=== PATIENT | male | born 1940 | race Caucasian/White ===

== ENCOUNTER → 2016-12-27 | Outpatient (CLI) | payer OTHER | LOC: FIMAGING 12:24 | PROVIDERS: ATTEND Orthopaedic Surgery Orthopaedic Surgery of the Spine | DX: Z01.818 Encounter for other preprocedural examination (principal); M47.892 Other spondylosis, cervical region; M50.222 Other cervical disc displacement at C5-C6 level ==

== ENCOUNTER 2017-01-01 08:32 | Observation (INO) | payer OTHER ==
--- NOTE | 2016-12-28 14:36 | GHP ---
[f rep st] PREOP HISTORY AND PHYSICAL DATE OF ADMISSION: 01/01/2017 HISTORY: The patient is a pleasant 76-year-old right-hand dominant gentleman well known to my practi ce. I had not seen him for 5 years. In the past, I had done 2 lumbar surgeries on him which were re vision laminectomies. Patient states that he has had about a 2-year history of ongoing cervical spin e pain as well as left shoulder pain, weakness, and atrophy. He mentions he went to a chiropractor, and a manipulation worsened him to the point that he was unable to lift his left upper extremity for about a week. He states he is seeing a neurosurgeon who recommended emergent surgery. Patient denie s any loss of bowel or bladder control and no loss of balance. On a 1-10 scale, his pain is typicall y a 4. 100% of his symptoms are referable to the left upper extremity. SOCIAL HISTORY: Negative for tobacco. Negative for alcohol. Patient is retired. FAMILY HISTORY: Significant for cancer in his father. PAST MEDICAL HISTORY: Patient has had Logan palsy, prostate cancer, and low back problems with 3 prio r lumbar surgeries. PAST SURGICAL HISTORY: Herniorrhaphy, rotator cuff repair, prostatectomy, knee arthroscopy, L4-S1 po sterior fusion with instrumentation, revision L2-4 laminectomy, and revision L1-L4 laminectomy. ALLERGIES: Shellfish. MEDICATIONS: Tramadol, prednisone, and Keflex. REVIEW OF SYSTEMS: Negative for any pertinent positives. PHYSICAL EXAMINATION: GENERAL: Height is 6 feet 2 inches tall, and patient weighs 210 pounds. Kizzy ent is alert and oriented x3. CARDIAC: Regular rate and rhythm without detectable murmur, rub, or g allop. LUNGS: Clear to auscultation. He has no wheezing or rhonchi. NEUROLOGIC: Patient has sign ificant decreased range of motion of the cervical spine and left rotation. Strength of bilateral upp er extremities is 5/5 throughout with the exception of his left deltoid and biceps are 3+/5. He has atrophy of the left deltoid, left biceps, triceps, and supraspinatus. Light touch is diminished in t he left deltoid, radial forearm, and small finger. Biceps, brachioradialis, triceps reflexes are abs ent. Gait is normal. He is tender to palpation in the left trapezius. RADIOGRAPHIC STUDIES: MRI of the cervical spine shows cervical kyphosis. He has severe degenerative disk disease C4-C7, retrolisthesis C5-6. At C5-6, he has profound spinal stenosis. C3-4 shows spin al stenosis which is moderate to severe. At C4-5, he has severe left foraminal stenosis. Furthermor e, there is question of possible myelomalacia and possible ossification of the posterior longitudinal ligament at C5-6. IMPRESSION: 1. Profound left upper extremity weakness and atrophy due to spinal stenosis in the cervical spine. 2. Cervical kyphosis and severe degenerative disk disease C4-C7. 3. Retrolisthesis C5-6. 4. Profound stenosis C5-6, severe C3-4, severe left foraminal stenosis C4-5. PLAN: I explained to the patient the MRI findings. We talked about his severe weakness and atrophy in the left upper extremity. He does require surgery on a more urgent basis. He mentions that his s [place] cord stimulator from his lower back was taken out, and that is why he is able to have an MRI. He understands that the potential risks of surgery include, but are not limited to, lack of improveme nt in symptomatology, specifically strength and atrophy, partial or complete paralysis, worsening of symptomatology, junctional breakdown, nonunion, breakage or pullout of internal fixation, loss of bow el or bladder control, Colton syndrome, dysphagia, aphonia, and injury to the esophagus, trachea, spi nal cord, carotid sheath. He also understands potential medical problems including, but not limited to, DVT, PE, pneumonia, stroke, heart attack, hemorrhage, hematoma, blindness, and . Patient wi ll be n.p.o. after midnight prior to surgery, and I expect a 1 to 2 night hospital stay. Copy requested to: [facility] /[id number]/MODL
[2017-01-01] MEDS ORDERED: LIDOCAINE 1% 2 ML INJ ID PRN (09:07)
[2017-01-01] MEDS ORDERED: LR 1,000 ML IV ONE (09:07)
[2017-01-01] MEDS ORDERED: LIDOCAINE 1% 2 ML INJ ONE (09:18)
[2017-01-01 09:37] LABS: % IMMATURE GRANULYOCYTES 0.3 % (0.0-1.1); ABSOLUTE IMMATURE GRANULOCYTES 0.02 10^3/uL (0.00-0.10); ADD DIFF? NO; ADD MORPH? NO; ADD SCAN? NO; ATYPICAL LYMPHOCYTE FLAG 0 (0-99); FRAGMENT RBC FLAG 0 (0-99); HEMOGLOBIN 16.1 g/dL (13.7-17.5); LEFT SHIFT FLG 0 (0-99); LIPEMIA HEMOLYSIS FLAG 90 (0-99); MEAN CELL HEMOGLOBIN 31.3 pg (27.9-34.1); MEAN CELL HEMOGLOBIN CONCENTR. 34.3 g/dL (32.4-36.7); MEAN CELL VOLUME 91.3 fL (81.5-99.8); MEAN PLATELET VOLUME 9.4 fL (8.7-11.7); PLATELET CLUMPS FLAG 0 (0-99); PLATELET COUNT 249 10^3/uL (150-400); RED BLOOD CELL COUNT 5.15 10^6/uL (4.40-6.38); RED CELL DISTRIBUTION WIDTH 13.2 % (11.5-15.2)
--- NOTE | 2017-01-01 09:50 | PDANEPAE ---
ANE History of Present Illness Cervical stenosis with left side pain and atrophy ANE Past Medical History - Cardiovascular History Hx Hypertension: Yes Hx Arrhythmias: No Hx Chest Pain: No Hx Coronary Artery / Peripheral Vascular Disease: No Hx CHF / Valvular Disease: No Hx Palpitations: No - Pulmonary History Hx COPD: No Hx Asthma/Reactive Airway Disease: No Hx Recent Upper Respiratory Infection: No Hx Oxygen in Use at Home: No Hx Sleep Apnea: No Sleep Apnea Screening Result - Last Documented: Positive - Neurologic History Hx Cerebrovascular Accident: No Hx Seizures: No Hx Dementia: No - Endocrine History Hx Diabetes: No - Renal History Hx Renal Disorders: Yes Renal History Comment: PROSTATECTOMY FOR CA. SOME LEAKAGE - Liver History Hx Hepatic Disorders: No - Neurological & Psychiatric Hx Hx Neurological and Psychiatric Disorders: No - Cancer History Hx Cancer: No - Congenital Disorder History Hx Congenital Disorders: No - GI History Hx Gastrointestinal Disorders: No - Other Health History Other Health History: DDD. DENTAL EXT 12/26/2016 - Chronic Pain History Chronic Pain: Yes (CERVICAL NECK REGION) - Surgical History Prior Surgeries: REMVL SPINAL STIMULATOR 03/2016. LAMINECTOMY X5 10/2011. PROSTATECTOMY FOR CA. SPINAL CORD STIMULATOR ANE Review of Systems Review of Systems: - Exercise capacity METS (RN): 4 METS ANE Patient History - Allergies Allergies/Adverse Reactions: No Known Allergies Allergy (Verified 03/05/16 07:02) - Home Medications Home medications: home medication list seen and reviewed Home Medications: amLODIPine BESYLATE [Norvasc 5 mg (*)] 5 mg PO DAILY 01/14/12 [Last Taken 06:00] Aspirin [Aspirin 81mg (*)] 81 mg PO DAILY 02/21/16 [Last Taken 12/25/16] Multivitamins [Multivitamin (*)] 1 each PO DAILY 02/21/16 [Last Taken 12/25/16] [place]-3 Fatty Acids [Fish Oil 1000 mg (*)] 1,000 mg PO DAILY 02/21/16 [Last Taken 12/25/16] celeCOXIB [Celebrex (*)] 200 mg PO BID 02/21/16 [Last Taken 12/25/16] traMADol [Ultram 50 mg (*)] 50 mg PO Q6HRS PRN 02/21/16 [Last Taken 12/31/16 17: 00] - NPO status NPO Since - Liquids (Date): 01/01/17 NPO Since - Liquids (Time): 06:00 NPO Since - Solids (Date): 12/31/16 NPO Since - Solids (Time): 22:00 - Smoking Hx Smoking Status: Never smoked ANE Labs/Vital Signs - Labs Result Diagrams: 01/01/17 09:25 - Vital Signs Blood Pressure: 154/92 Heart Rate: 65 Respiratory Rate: 16 O2 Sat (%): 97 Height: 193.04 cm Weight: 92.986 kg ANE Physical Exam - Airway Neck exam: FROM Mouth exam: normal dental/mouth exam - Pulmonary Pulmonary: no respiratory distress - Cardiovascular Cardiovascular: regular rate and rhythym - ASA Status ASA Status: II ANE Anesthesia Plan Anesthesia Plan: general endotracheal anesthesia
--- NOTE | 2017-01-01 09:58 | PDHPUP ---
History & Physical Update H&P update statement: This history and physical update is based on an assessment of the patient which was completed after admission or registration (within 24 hours), but prior to the surgery/procedure. H&P update: H&P reviewed & patient examined, no change in patient's condition since H&P completed
[2017-01-01] MEDS ORDERED: THROMBIN (BOVINE) 20,000 UNIT VIAL TP ONE (10:38)
[2017-01-01] MEDS ORDERED: BACITRACIN 50,000 UNITS/10 ML SYR IRR ONE (10:39)
[2017-01-01] MEDS ORDERED: PROPOFOL 200 MG/20 ML VIAL ONE ×2 (10:40→12:04)
[2017-01-01] MEDS ORDERED: REMIFENTANIL HCL 1 MG VIAL ONE ×2 (10:40→14:10)
[2017-01-01] MEDS ORDERED: PROPOFOL/EMULSION 500 MG/50 ML BOTTLE IV ONE ×3 (10:40→14:11)
[2017-01-01] MEDS ORDERED: fentaNYL 100 MCG/2 ML INJ ONE (10:40)
[2017-01-01] MEDS ORDERED: ROCURONIUM 50 MG/5 ML VIAL ONE (10:41)
[2017-01-01] MEDS ORDERED: LIDOCAINE 2% 5 ML SDV ONE (10:41)
[2017-01-01] MEDS: ceFAZolin 2 GM/DEXTROSE 100 ML IV ONE (11:01)
[2017-01-01] MEDS ORDERED: DEXAMETHASONE 4 MG/ML VIAL ONE (11:05)
[2017-01-01] MEDS ORDERED: ONDANSETRON 4 MG/2 ML VIAL ONE (11:05)
[2017-01-01] MEDS ORDERED: epHEDrine SULFATE 10 MG/ML SYR ONE ×2 (12:27)
[2017-01-01] MEDS ORDERED: PHENYLEPHRINE HCL 100 MCG/ML SYR ONE (12:30)
[2017-01-01] MEDS ORDERED: SUGAMMADEX SODIUM 200 MG/2 ML VIAL IVP ONE (13:04)
[2017-01-01] MEDS ORDERED: fentaNYL 100 MCG/2 ML INJ IVP PRN (15:02)
[2017-01-01] MEDS ORDERED: ONDANSETRON 4 MG/2 ML VIAL IVP PRN ×2 (15:02→15:42)
[2017-01-01] MEDS ORDERED: NALOXONE HCL 0.4 MG/ML INJ IVP PRN (15:02)
--- NOTE | 2017-01-01 15:31 | POSTANESTH ---
Post Anesthetic Evaluation Cardiovascular Status: Normal, Stable, Similar to Pre-Op Cond Respiratory Status: Normal, Stable, Similar to Pre-op Cond. Level of Consciousness/Mental Status: Can Participate in Eval Pain Control: Adequate, Prn Tx Ordered Nausea/Vomiting Control: Adequate, Prn Tx Ordered Complications Possibly Related to Anesthesia: None Noted
[2017-01-01] MEDS ORDERED: PROMETHAZINE HCL 25 MG/ML INJ IVP PRN (15:42)
[2017-01-01] MEDS ORDERED: HYDROmorphONE/DILAUDID 1 MG/ML INJ IVP PRN (15:42)
[2017-01-01] MEDS ORDERED: ONDANSETRON DISINTEGRATING 4 MG TAB PO PRN (15:42)
[2017-01-01] MEDS ORDERED: LACTULOSE 20 GM/30 ML UDCUP PO PRN (15:42)
[2017-01-01] MEDS ORDERED: POLYETHYLENE GLYCOL 3350 17 GM PKT PO PRN (15:42)
[2017-01-01] MEDS ORDERED: diphenhydrAMINE 25 MG CAP PO PRN (15:42)
[2017-01-01] MEDS ORDERED: ZOLPIDEM TARTRATE 5 MG TAB PO PRN (15:42)
[2017-01-01] MEDS ORDERED: BISACODYL 10 MG SUPP PR PRN (15:42)
[2017-01-01] MEDS ORDERED: MAGNESIUM HYDROXIDE 30 ML UDCUP PO PRN (15:42)
[2017-01-01] MEDS ORDERED: NS W/ 20 KCl/L 1,000 ML IV SCH (15:45)
[2017-01-01] MEDS ORDERED: HYDROCODONE/APAP 5/325 TAB PO PRN (15:50)
[2017-01-01] MEDS ORDERED: DIAZEPAM 5 MG TAB PO PRN (15:50)
[2017-01-01] MEDS ORDERED: DIAZEPAM 10 MG/2 ML SYR IVP PRN (15:51)
--- NOTE | 2017-01-01 15:56 | POSTOPPROG ---
Post Op Note Date of Operation: 01/01/17 Surgeon: Lisa Mandujano Radiotelegraphist: Mirella Dick SA Anesthesiologist: MD Aura Anesthesia: GET(General Endotracheal) Pre-op Diagnosis: Severe Stenosis C3-6 Post-op Diagnosis: same Indication: LUE pain and weakness and loss of balance Procedure: C3-6 ACDF/I Findings: moderate stenosis C3-4, profound stenosis C4-6 Inf/Abcess present in the surg proc area at time of surgery?: No EBL: 75 cc Total fluids administered: 500 cc Complications: None. No changes in SSEPs, MEPs, EMGs.
[2017-01-01] MEDS: METHOCARBAMOL 750 MG TAB PO PRN (17:45)
--- NOTE | 2017-01-01 21:06 | GOP ---
[f rep st] OPERATIVE REPORT DATE OF OPERATION: SURGEON: Lisa Coreas MD FIRE MARSHAL: Kale Dick SA. ANESTHESIA: General endotracheal intubation. ANESTHESIOLOGIST: Kale Chavarria MD. PREOPERATIVE DIAGNOSIS: 1. Cervical kyphosis with severe degenerative disk disease, C4-C7. 2. Severe stenosis C3-4. 3. Profound stenosis C4-5 and C5-6. 4. Left upper extremity atrophy. POSTOPERATIVE DIAGNOSIS: 1. Cervical kyphosis with severe degenerative disk disease, C4-C7. 2. Severe stenosis C3-4. 3. Profound stenosis C4-5 and C5-6. 4. Left upper extremity atrophy. PROCEDURE PERFORMED: C3-4, C4-5, C5-6 anterior diskectomy, complete decompression and foraminotomies , placement of PEEK cages interbody arthrodesis with anterior instrumentation. FINDINGS: Profound spinal stenosis C4-5 and C5-6, and moderate to severe stenosis C3-4. ESTIMATED BLOOD LOSS: 75 cc. INDICATIONS: The patient is a pleasant 76-year-old gentleman, right-hand dominant, well known to my practice. He has had 2 prior low back surgeries by myself. The patient states that he has had a gra dual onset of symptoms over the past 2 years of some loss of balance and some left upper extremity se ajtin weakness and atrophy. He was told by a neurosurgeon that he required emergent surgery. He soug ht a second opinion by myself. On physical exam, he was found to have profound atrophy of the left d eltoid biceps, triceps, and supraspinatus. On MRI, he was found to have severe stenosis at C3-4 and profound C4-5, C5-6. I did concur with surgery and recommended it. Potential risks, benefits, and p ossible complications were thoroughly discussed with the patient including, but not limited to, dural tear with CSF leak, meningitis, nerve root injury, partial or complete paralysis, infection, dysphag ia, aphonia, Colton syndrome, junctional breakdown, nonunion, need for further surgery, lack of impro vement in symptomatology specifically left upper extremity weakness and atrophy, as well as DVT, PE, pneumonia, stroke, heart attack, hemorrhage, blindness, and . The patient's questions were answ ered thoroughly and no guarantees were given in regard to surgical outcome. DESCRIPTION OF PROCEDURE: After obtaining both written and verbal consent from the patient, he was b rought to the operating room where he underwent a general endotracheal intubation. Intraoperative ne ural monitoring including somatosensory-evoked potentials, motor-evoked potentials, and EMG's were se t up and performed. The anterior aspect of the cervical spine was prepped and draped in a normal frantz rile fashion, after the patient was placed with his head in mild extension onto a Vera headrest. A lateral fluoroscopic x-ray was obtained for localization. A time-out was performed with the [facility] operating room team, confirming patient's name, date of , planned surgical procedure including levels, antibiotics given, and allergies to medications. After obtaining both written and verbal consent from the patient, he was brought to the operating norman m where he underwent a general endotracheal intubation. Patient received IV antibiotics. And after sterile prep and drape, a left-sided paramedian longitudinal incision was made along the medial borde r of the sternocleidomastoid muscle. The platysma was incised with Bovie cautery. The deep cervical fascia was incised along the medial border of the sternocleidomastoid muscle. Branches of the exter nal jugular vein were tied off using a 2-0 silk tie and hemoclips. The trachea and esophagus were ge ntly retracted toward the midline. The common carotid artery and the external jugular vein were iden tified and avoided. Dissection was carried out medial to those structures. The prevertebral and pre tracheal fascia were bluntly dissected. The anterior aspect of the cervical spine was identified. A n intraoperative x-ray was obtained using 3 bent spinal needles. Initially these were at C4-5, C5-6 and C6-7 and then the distal 1 was moved proximally and ultimately the x-ray proved it to be at C3-4, C4-5, C5-6 which were the correct levels. The operating microscope was brought in for further visua lization. The bent spinal needles were removed. The longus coli muscles were elevated bilaterally w ith Bovie cautery. The anterior longitudinal ligament was taken down also with Bovie cautery. There were large anterior osteophytes at C4-5 and C5-6 overlying the disk spaces completely an ossified to it. A [place] pin measuring 14 mm in length was placed one at C3 and one at C4. Very minimal distra ction was performed and there was no change in spinal cord monitoring. Under the microscope visualiz ation, a 15-blade knife was used to create an annulotomy at the C3-4 disc. This was moderately degen erative. However there were no anterior osteophytes at this level. The disk was removed back to the posterior longitudinal ligament which was quite significantly hypertrophied causing moderate central stenosis. This was taken down with a micro nerve hook and a 1 and 1.5 mm Kerrison. Care was taken to protect the spinal cord at all times. A 5 mm round and barrel shaped bur were used to decorticate the vertebral endplates, and local bone graft was saved for the arthrodesis. The entire spinal cord was fully decompressed at that level. Trials were utilized. Initially the wide trials, which were 16 mm wide were utilized and a 9 mm trial had the best fit. Therefore, it was packed with local bone graft and demineralized bone matrix and then tamped into position at C3-4 but it was too wide. Ther efore it was removed, and a 14 x 11 x 9 mm lordosed PEEK cage was also packed with local autogenous b one graft and then tamped into position at C3-4 and had much better fit. A micro nerve hook was used to palpate posterior to the bone graft and it showed no iatrogenic compression of the spinal cord. Then, the C4-5 level was addressed. This had a large anterior osteophyte and arthrodesis across the anterior longitudinal ligament which was taken down with a 5 mm round bur. [place] pins were placed o ne at C4 and one at C5. A 15-blade knife was used to create an annulotomy at C4-5. The disk was sev erely degenerative with ittn-wq-rzov contact. A 5 mm round bur was then used to open up the disk spa ce back to the posterior longitudinal ligament. 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 T his was very carefully and gradually removed with a 1 and 1.5 mm Kerrison and bilateral foraminotomie s were performed with a 2 mm Kerrison. A 5 mm round bur was then used to decorticate the vertebral e ndplates and local autogenous bone graft was saved. As mentioned, this disc space was completely obl iterated and was severely seoe-yd-hqfo degenerative. Trials were again utilized and the best fitting trial was a 14 x 11 x 10 mm lordosed PEEK cage so therefore, that particular size was chosen, packed with local autogenous bone graft as well as demineralized bone matrix and then tamped into position at C4-5. There were no changes in spinal cord monitoring. The C5-6 level was then addressed. This level also showed profound degenerative disk disease with ltxp-bq-fsll contact and a large anterior o steophyte involving the anterior longitudinal ligament. This was taken down with a 5 mm round bur. Distraction pins were placed 1 at C5 and 1 at C6, and the disk space was drilled open. Again it was severely arthritic with severe degenerative disk disease with dkaf-cl-oblz contact. The remnant of t he disk was removed via piecemeal and 2-0 curved curette and the posterior longitudinal ligament was ossified quite severely. There was profound central stenosis as well as bilateral left greater than right foraminal stenosis. A 5 mm round and barrel shaped bur were then used to create parallel endpl ates and trials were utilized. The best fitting trial was an 8 mm wide PEEK cage from [employer]. Therefore, a 16 x 13 x 8 mm lordosed PEEK cage, which is a Crystal PEEK TiBond cage packed with l ocal autogenous bone graft and demineralized bone matrix. It was tamped into position at C5-6 and re cessed about 1 mm. A micro nerve hook was used to palpate posterior to the bone graft and this showe d no iatrogenic compression of the spinal cord. A 5 mm round bur was then used to contour the anteri or aspect of the cervical spine from C3-C6 to better accept a plate. A 48 mm 3 level plate was chose n as it had the best fit. I had to remove the lordosis to make it straight as the patient's kyphosis was reduced into normal straight spine but was not able to achieve lordosis. At this time, screws w ere placed starting at C3 down to C6 at each level and all screws were 4 mm in diameter and 14 mm in length and were self-drilling screws. They had good bone purchase and the interlocking screws were t hen tightened per the stove mechanic's recommendation. At this time, an AP and a lateral fluoroscopic view were obtained showing good position of internal fixation from C3-C6 including the PEEK cages and the plate and screws. Kyphosis had been removed and the patient's cervical spine from C3-C6 was str aight. Under loupe magnification, bipolar cautery was used for hemostasis. Hemostasis was also obta ined with Gel-Foam soaked in thrombin and Avitene. The wound was completely dry prior to closure and therefore, no drain was necessary. The wound was closed after full inspection showing that the parsons tid sheath and its contents were in excellent condition, as well as the trachea, esophagus and spinal cord. The wound was closed using a 2-0 undyed Vicryl in an interrupted fashion in the platysma foll owed by a 4-0 Prolene in the skin. Sterile dressing was applied. Soft cervical collar was placed. Patient was extubated in the operating room and brought to the recovery room in satisfactory conditio n. COMPLICATIONS: None. There were no changes in somatosensory-evoked potentials, motor-evoked potenti als, or EMG's. FLUIDS GIVEN: 500 cc. POSTOPERATIVE PLAN: Close neurologic observation, close airway observation, physical therapy, occupa tional therapy and pain control. /[id number]/MODL
[2017-01-01] MEDS: SENNOSIDES/DOCUSATE SODIUM TAB PO SCH (21:09)
[2017-01-01] MEDS: ACETAMINOPHEN 500 MG TAB PO SCH (21:10)
[2017-01-01] MEDS: oxyCODONE IR 5 MG TAB PO PRN (21:12)
[2017-01-01] MEDS: ceFAZolin 2 GM/DEXTROSE 100 ML IV SCH (21:13)
[2017-01-02] MEDS: oxyCODONE IR 5 MG TAB PO PRN (03:01)
[2017-01-02] MEDS: ACETAMINOPHEN 500 MG TAB PO SCH (05:28)
[2017-01-02] MEDS: ceFAZolin 2 GM/DEXTROSE 100 ML IV SCH (05:29)
[2017-01-02 08:11] VITALS: BP 144/72; PULSE 60; RESP 14; TEMP 98.6
[2017-01-02] MEDS ORDERED: amLODIPine BESYLATE 5 MG TAB PO SCH (09:00)
[2017-01-02] MEDS: SENNOSIDES/DOCUSATE SODIUM TAB PO SCH (10:23)
--- NOTE | 2017-01-02 11:20 | SOAPPROG ---
SOAP Progress Note Assessment/Plan: Assessment: Post op day 1, s/p C3-6 ACDF/I for profound spinal stenosis. Pt doing well. Ready for discharge. Plan: 01/02/17 11:17 Will start Neurontin for BUE nerve type pain. Neurologically stable. No significant dysphagia. Ready for discharge to home. Subjective: Pt states he has Bilat UE pain/ache. Hard to get comfortable. Able to urinate without difficulty. No dysphagia. Objective: Vital Signs Temp Pulse Resp BP Pulse Ox 37 C 60 14 144/72 H 96 01/02/17 08:08 01/02/17 08:08 01/02/17 08:08 01/02/17 10:24 01/02/17 08:08 Laboratory Results 01/01/17 09:25 01/01/17 01/02/17 01/03/17 05:59 05:59 05:59 Intake Total 1180 Output Total 75 Balance 1105 BUE motor 5/5. No Colton's syndrome bilat. Wound c/d/i. No sign of hematoma. ICD10 Worksheet Patient Problems: Problems Problem Status Onset Stenosis of cervical spine region Acute - ICD10 Problem Qualifiers (1) Stenosis of cervical spine region
[2017-01-02] MEDS ORDERED: GABAPENTIN 300 MG CAP PO SCH (11:30)
[2017-01-02 12:14] VITALS: O2SAT 94
[2017-01-02] MEDS: METHOCARBAMOL 750 MG TAB PO PRN (13:10)
--- NOTE | 2017-01-02 14:13 | ASDISCHSUM ---
Discharge Information Plan Status:Home with No Needs Medically Cleared to Leave: Discharge Date:01/02/2017 01:53 PM CM D/C Disposition:Home, Routine, Self-Care ADT D/C Disposition:Home, Routine, Self-Care Projected Discharge Date:01/02/2017 01:53 PM Transportation at D/C: Discharge Delay Reason: Follow-Up Date:01/02/2017 01:53 PM Discharge Slot: Final Diagnosis: Placement Information Patient Contact Information Contact Name:LOUIS Relationship: Address:[address] City:[facility] Phone: [facility]/Zip Code:[place] [address] Email: Financial Information Financial Class: Primary Plan Desc:MEDICARE OUTPATIENT Primary Plan Number:[id number] Secondary Plan Desc:MEDICARE SUPPLEMENT Secondary Plan Number:[id number] Assessment Information Intervention Information Intervention Type:*Incorrect Registration Date of Service:01/01/2017 06:25 PM Patient Type:Inpatient Staff Member:PAWEL [place] Kerry Hours: Discipline: Severity: Comment: Intervention Type:*HARPER-Signed Date of Service:01/02/2017 09:25 AM Patient Type:Observation Staff Member:Miya Mcdonnell Hours: Discipline: Severity: Comment:
--- NOTE | 2017-01-02 14:14 | ASMTCMCOM ---
CM Note CM Note Notes: Pt medically stable for d/c, no CM d/c needs identified. Date Signed: 01/02/2017 02:13 PM Electronically Signed By:ALEJANDRA Sellers
== END 2017-01-02 13:53 | disposition home or self-care (01) ==
LOC: F3N 08:32 → INTOOBSV 08:32 → F3N 17:03
PROVIDERS: ADMIT Orthopaedic Surgery Orthopaedic Surgery of the Spine; ATTEND Orthopaedic Surgery Orthopaedic Surgery of the Spine
PROC: 8E0WXBZ Computer Assisted Procedure of Trunk Region (ICD-10-PCS; principal; 2017-01-01 10:15)
PROC: 0PB30ZZ Excision of Cervical Vertebra, Open Approach (ICD-10-PCS; principal; 2017-01-01 10:15)
PROC: 0RT30ZZ Resection of Cervical Vertebral Disc, Open Approach (ICD-10-PCS; principal; 2017-01-01 10:15)
PROC: 0RG20J0 Fusion of 2 or more Cervical Vertebral Joints with Synthetic Substitute, Anterior Approach, Anterior Column, Open Approach (ICD-10-PCS; principal; 2017-01-01 10:15)
PROC: 3E0V0GB Introduction of Recombinant Bone Morphogenetic Protein into Bones, Open Approach (ICD-10-PCS; principal; 2017-01-01 10:15)
DX: M48.02 Spinal stenosis, cervical region (principal); M50.121 Cervical disc disorder at C4-C5 level with radiculopathy; M50.122 Cervical disc disorder at C5-C6 level with radiculopathy; M50.123 Cervical disc disorder at C6-C7 level with radiculopathy; M40.202 Unspecified kyphosis, cervical region; Z98.1 Arthrodesis status; Z85.46 Personal history of malignant neoplasm of prostate
CPT/HCPCS: 22551; 22552; 76001; 92610; 97161; C1713; G8978; G8980; G8996; G8997; J0690; J1100; J2370; J2405; J2704; J3010

== ENCOUNTER 2017-01-04 13:26 | Inpatient (IN) | payer OTHER ==
[2017-01-04] MEDS ORDERED: OXYCODONE/APAP 5/325 TAB PO ONE (15:46)
[2017-01-04] MEDS ORDERED: OXYCODONE/APAP 5/325 TAB ONE ×2 (15:47)
--- NOTE | 2017-01-04 15:53 | SOAPPROG ---
SOAP Progress Note Assessment/Plan: Assessment: pt is 76 yom, RHD, 3 days s/p C3-6 ACDF/I with severe bilateral upper extremity pain and post. interscapular pain. Significant narcotic requirment leading to some oversedation and fall at home. Pt transferred here from [facility] Plan: 01/04/17 15:48 Will discuss with hospitalist, plan of care. I do not see any evidence of airway problems or hematoma on exam. Neuro exam is normal. I recommend increasing the gabepentin to 600 mg tid, and giving iv decadron. Possible Lidocaine patch also. Cont oxycodone, but will add MSContin for baseline. Subjective: Pt complains of severe bilat upper extremity pain. Objective: Vital Signs Temp Pulse Resp BP Pulse Ox 37.0 C 76 16 135/82 H 96 01/04/17 13:40 01/04/17 15:13 01/04/17 15:13 01/04/17 15:13 01/04/17 15:14 BUE and BLE strength 5/5. Lt touch in tact. No Colton's syndrome. Anterior cervical wound without signs of infxn or retropharyngeal hematoma. No dyspnea. ICD10 Worksheet Patient Problems: Problems Problem Status Onset Stenosis of cervical spine region Acute
[2017-01-04] MEDS ORDERED: ONDANSETRON 4 MG/2 ML VIAL IVP PRN (15:58)
[2017-01-04] MEDS ORDERED: ONDANSETRON DISINTEGRATING 4 MG TAB PO PRN (15:58)
[2017-01-04] MEDS ORDERED: DIAZEPAM 5 MG TAB PO PRN ×2 (15:58→16:31)
[2017-01-04] MEDS ORDERED: LIDOCAINE 5% 1 EA PATCH TD SCH (16:00)
[2017-01-04] MEDS ORDERED: oxyCODONE IR 5 MG TAB PO PRN (16:00)
[2017-01-04] MEDS ORDERED: GABAPENTIN 300 MG CAP PO SCH ×2 (16:00→21:00)
[2017-01-04] MEDS ORDERED: *MD ORDERING ONLY-DEXAMETHASONE TAPER IVP SCH (16:00)
[2017-01-04 16:20] LABS: % IMMATURE GRANULYOCYTES 0.4 % (0.0-1.1); ABSOLUTE IMMATURE GRANULOCYTES 0.06 10^3/uL (0.00-0.10); ADD DIFF? NO; ADD MORPH? NO; ADD SCAN? NO; ATYPICAL LYMPHOCYTE FLAG 0 (0-99); FRAGMENT RBC FLAG 0 (0-99); HEMATOCRIT 43.7 % (40.0-51.0); HEMOGLOBIN 14.7 g/dL (13.7-17.5); LEFT SHIFT FLG 0 (0-99); LIPEMIA HEMOLYSIS FLAG 80 (0-99); MEAN CELL HEMOGLOBIN 31.5 pg (27.9-34.1); MEAN CELL HEMOGLOBIN CONCENTR. 33.6 g/dL (32.4-36.7); MEAN CELL VOLUME 93.6 fL (81.5-99.8); MEAN PLATELET VOLUME 9.8 fL (8.7-11.7); PLATELET CLUMPS FLAG 0 (0-99); PLATELET COUNT 201 10^3/uL (150-400); RED BLOOD CELL COUNT 4.67 10^6/uL (4.40-6.38); RED CELL DISTRIBUTION WIDTH 13.5 % (11.5-15.2)
[2017-01-04 16:31] LABS: ALANINE AMINOTRANSFERASE 35 IU/L (21-72); ALBUMIN 3.5 g/dL (3.5-5.0); ALKALINE PHOSPHATASE 69 IU/L (38-126); ANION GAP 9 mEq/L (8-16); ASPARTATE AMINOTRANSFERASE 35 IU/L (17-59); BILIRUBIN,TOTAL 1.9 mg/dL (0.1-1.4); CALCIUM 9.5 mg/dL (8.5-10.4); CARBON DIOXIDE 27 mEq/l (22-31); CHLORIDE 98 mEq/L (97-110); CREATININE 0.8 mg/dL (0.7-1.3); GLOMERULAR FILTRATION RATE > 60; GLUCOSE 92 mg/dL (70-100); POTASSIUM 3.9 mEq/L (3.5-5.2); SODIUM 134 mEq/L (134-144); TOTAL PROTEIN 6.4 g/dL (6.3-8.2)
--- NOTE | 2017-01-04 17:01 | GHP ---
[f rep st] HISTORY AND PHYSICAL DATE OF ADMISSION: 01/04/2017 CHIEF COMPLAINT: Neck pain, weakness and hypoxemia. HISTORY OF PRESENT ILLNESS: The patient is a 76-year-old male with a history of chronic neck pain, who recently underwent an anterior cervical diskectomy performed by Dr. Coreas 3 days ago. He presents to the emergency department from the hospital in [place] after a fall at home due to weakness. He was found to be hypoxemic with a room air sat in the 70's. Since discharge from the hospital, he has had significant neuropathic pain in his upper back radiating into both hands. He also endorses paresthesias of bilateral hands. For pain control, he has been using tramadol, Percocet, Valium and Tylenol. This morning, his found him on the toilet and, he was so weak, he was unable to stand. In the ER at [place] his wbc count was reportedly around 20,000 and there was some concern for infection. He was then transferred to [facility] for evaluation by his neurosurgeon. Upon arrival to the emergency department here, he was 86% on room air and is requiring 2 L of oxygen. His main concern is his pain. His and 2 children accompany him at the bedside. They report that prior to his surgery, he was stung by a wasp. He was started on Keflex. He was then stung by another wasp and got a 2nd course of Keflex. In addition, he was started on prednisone and took that for total of 8 days. His last dose of prednisone was approximately 5 days ago. He has since been continued on Keflex postoperatively. He denies any fevers, chills, rigors or sweats. He denies cough, chest pain, or shortness of breath. He has no abdominal pain, nausea, vomiting, or diarrhea. In fact, it has been several days since he has had a bowel movement. He denies any dysuria, frequency, or urgency. His reports his incisions appeared clean and dry without purulent drainage. There have been no other suspicious skin sources for infection. Again, his main concern in the emergency department is pain contro. He is admitted to the hospital for further management. PAST MEDICAL HISTORY: 1. Chronic neck pain. 2. Chronic back pain. 3. History of Logan's palsy. 4. Prostate cancer. PAST SURGICAL HISTORY: 1. Herniorrhaphy. 2. Rotator cuff repair. 3. Prostatectomy. 4. Knee arthroscopy. 5. L4-S1 posterior fusion with instrumentation. 6. Revision of L2-L4 laminectomy. 7. Revision of L1-L4 laminectomy. FAMILY HISTORY: His father had cancer. SOCIAL HISTORY: The patient lives independently in [place] with his , who is present at the bedside. He is retired. He denies alcohol or drug use. MEDICATIONS: Please see [facility] for completed outpatient medication list. ALLERGIES: Include shellfish. REVIEW OF SYSTEMS: A 10-point review of systems was performed and is negative status per HPI. OBJECTIVE: VITAL SIGNS: Temperature is 37 degrees, blood pressure 158/76, heart rate 78, respiratory rate is 16. He is 97% on 2 L. GENERAL: The patient is awake, alert, oriented, in no acute distress. HEENT: Head is atraumatic, normocephalic. Pupils equal, round, and reactive to light. Extraocular muscles intact. Oropharynx is clear. Mucous membranes are moist. NECK: Supple. I removed his soft cervical collar. His anterior neck incision dressing is clean and dry without evidence of purulence. There is no surrounding erythema. HEART : Regular rate and rhythm without murmur. LUNGS: Reveal atelectatic crackles on the left, which clear with several deep breaths. ABDOMEN: Soft, nondistended, nontender with normoactive bowel tones. EXTREMITIES: Without cyanosis, clubbing, or edema. Sensation is intact. NEUROLOGIC: He has 5/5 muscle strength in upper and lower extremities bilaterally. His neuro exam is otherwise nonfocal. DIAGNOSTIC STUDIES: Chest x-ray performed in the emergency department was personally reviewed and interpreted. There is no cardiomegaly. He has what looks like atelectatic changes in the lung bases without effusions. Overall poor inspiratory effort. ASSESSMENT AND PLAN: The patient is a 76-year-old male who is postop day 3 from an anterior cervical diskectomy, who is admitted to the hospital with poor pain control and hypoxemia. # Anterior cervical diskectomy, postoperative day 3, with poor pain control. The patient is admitted to the Medical/Surgical unit. His neurosurgeon, Dr. Coreas is consulted. He will be started on Decadron. In addition, at the recommendation of his neurosurgeon, his gabapentin dose will be doubled. I had some concern that he may be having some side effects from the gabapentin given his difficulty with ambulation, so we will have to watch him closely as we rapidly increase the dose. I agree this pain is likely neuropathic, and he is most likely to respond to gabapentin. We will also start him on MS Contin twice daily and continue p.r.n. oxycodone. Will try a Lidoderm patch, which has been cleared by his neurosurgeon. Physical Therapy and Occupational Therapy evaluations are requested. We will continue close monitoring and up titration of pain medications as tolerated. # Hypoxemia. I suspect this is secondary to over medication as he has been on both opiates and benzodiazepines at the maximum prescribed doses vs atelectasis. He has no symptoms of pneumonia. His chest x-ray does show some atelectatic changes, but no obvious consolidation. Considered PE, though he has no CP, SOB or pleuritic symptoms. There is possible mild volume overload on his chest x-ray. Will obtain a BNP, as well as an echocardiogram to assess his left ventricular function. He has no other significant signs of volume overload such as JVD or peripheral edema. Will order incentive spirometry to help with lung expansion. He is requiring 2 L of oxygen, will wean this as able. # Leukocytosis. This may be related to his recent course of Prednisone. There are no infectious symptoms. Consider neck imaging to r/o abscess if he develops fever or neurologic symptoms. Will trend for now. # Fall. As above, I suspect this is secondary to over medication. Physical Therapy and Occupational Therapy evaluations are requested. # Deep venous thrombosis prophylaxis. Patient is high risk. Will start Lovenox. # Code status: Full code. DISPOSITION: Admitted to inpatient status. Expect he will require greater than 48-hour hospitalization for ongoing management of his acute postop pain and problems with ambulation. PT/OT evals are requested. /[id number]/MODL MTDD
[2017-01-04] MEDS: DEXAMETHASONE SOD PHOSPHATE 10 MG in NS 50 ML IV SCH ×2 (17:53→23:57)
[2017-01-04] MEDS ORDERED: DEXAMETHASONE 4 MG/ML VIAL IVP SCH (18:00)
[2017-01-04] MEDS: LIDOCAINE 5% 1 EA PATCH TD SCH (18:01)
[2017-01-04] MEDS: GABAPENTIN 300 MG CAP PO SCH ×2 (18:09→23:57)
[2017-01-04] MEDS ORDERED: GABAPENTIN 300 MG CAP PO ONE (21:00)
[2017-01-04] MEDS ORDERED: PATCH REMOVAL 1 EA PATCH TD SCH (21:00)
[2017-01-04] MEDS ORDERED: morphINE SR 30 MG TAB PO SCH (21:00)
--- NOTE | 2017-01-04 21:21 | PDMN ---
Medical Necessity Medical necessity: C/M review: est. > 2 MN LOS for eval and TX of acute and persistent poorly controlled postop pain, hypoxemia - suspect due to opiate and benzodiazepine medications, new significant difficulty with ambulation, requiring ongoing pain management, IV steroids, pulse oximetry, supplemental O2 , acute inpt PT/OT, comorbid 01/01/2017 C3-C6 anterior discectomy fusion, hx chronic neck / back pain, Logan's palsy per HP, Neurosurgery consult note.
[2017-01-04] MEDS: CEPHALEXIN 500 MG CAP PO SCH (21:45)
[2017-01-04] MEDS: PATCH REMOVAL 1 EA PATCH TD SCH (22:47)
[2017-01-04] MEDS: morphINE SR 15 MG TAB PO SCH (22:47)
[2017-01-05] MEDS: oxyCODONE IR 5 MG TAB PO PRN ×2 (04:34→09:56)
[2017-01-05 05:20] LABS: % IMMATURE GRANULYOCYTES 0.5 % (0.0-1.1); ABSOLUTE IMMATURE GRANULOCYTES 0.05 10^3/uL (0.00-0.10); ADD DIFF? NO; ADD MORPH? NO; ADD SCAN? NO; ATYPICAL LYMPHOCYTE FLAG 0 (0-99); FRAGMENT RBC FLAG 0 (0-99); HEMATOCRIT 42.9 % (40.0-51.0); HEMOGLOBIN 14.4 g/dL (13.7-17.5); LEFT SHIFT FLG 0 (0-99); LIPEMIA HEMOLYSIS FLAG 80 (0-99); MEAN CELL HEMOGLOBIN 31.6 pg (27.9-34.1); MEAN CELL HEMOGLOBIN CONCENTR. 33.6 g/dL (32.4-36.7); MEAN CELL VOLUME 94.1 fL (81.5-99.8); MEAN PLATELET VOLUME 10.4 fL (8.7-11.7); PLATELET CLUMPS FLAG 0 (0-99); PLATELET COUNT 199 10^3/uL (150-400); RED BLOOD CELL COUNT 4.56 10^6/uL (4.40-6.38); RED CELL DISTRIBUTION WIDTH 13.2 % (11.5-15.2)
[2017-01-05] MEDS: CEPHALEXIN 500 MG CAP PO SCH ×4 (06:07→21:02)
[2017-01-05] MEDS: DEXAMETHASONE 10 MG/ML VIAL IVP SCH ×2 (06:07→12:39)
[2017-01-05] MEDS ORDERED: ENOXAPARIN 40 MG/0.4 ML SYR SC SCH (09:00)
[2017-01-05] MEDS: amLODIPine BESYLATE 5 MG TAB PO SCH (09:55)
[2017-01-05] MEDS: HYDROCHLOROTHIAZIDE 25 MG TAB PO SCH (09:55)
[2017-01-05] MEDS: GABAPENTIN 300 MG CAP PO SCH ×3 (09:56→21:02)
[2017-01-05] MEDS: LIDOCAINE 5% 1 EA PATCH TD SCH ×2 (10:10→20:57)
[2017-01-05] MEDS: morphINE SR 15 MG TAB PO SCH (10:11)
--- NOTE | 2017-01-05 10:57 | HOSPPROG ---
Hospitalist Progress Note Assessment/Plan: 76-year-old with a history significant only for prostate cancer and chronic neck pain is admitted with hypoxia and encephalopathy status post neck surgery. Overnight he has improved in significantly with resolution of his encephalopathy however he still remains fairly hypoxic. His pain is better controlled currently with the regimen. # acute respiratory failure normal chest x-ray. Given history of prostate cancer and recent surgery will check CT angiogram to rule out pulmonary embolus. * CTA stat * Monitor oxygen needs, may need to go home with oxygen. * Consider duo nebs. 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 # cervical spine surgery by Dr. Mandujano. Postop care per her team. Pain control improving. Continue physical occupational therapy. * Continue current pain regimen for now Subjective: Patient new to me and chart reviewed. Much more alert today and appropriate. Feeling much better however still hypoxic down to 80% on room air. Objective: Vital Signs Temp Pulse Resp BP Pulse Ox 36.6 C 66 14 152/92 H 96 01/05/17 08:00 01/05/17 08:00 01/05/17 08:00 01/05/17 09:55 01/05/17 08:00 Laboratory Results 01/05/17 04:24 01/04/17 16:07 01/04/17 01/05/17 01/06/17 05:59 05:59 05:59 Intake Total 750 Output Total 0 Balance 750 - Physical Exam Constitutional: no apparent distress, uncomfortable Eyes: PERRL, EOMI Ears, Nose, Mouth, Throat: moist mucous membranes, other (With a soft collar.) Cardiovascular: regular rate and rhythym, no murmur, rub, or gallop Respiratory: no respiratory distress, no rales or rhonchi, clear to auscultation Gastrointestinal: normoactive bowel sounds, soft, non-tender abdomen Genitourinary: no bladder fullness Skin: warm, normal color Musculoskeletal: full muscle strength Neurologic: AAOx3 Psychiatric: interacting appropriately, not anxious ICD10 Worksheet Patient Problems: Problems Problem Status Onset Stenosis of cervical spine region Acute
[2017-01-05] MEDS ORDERED: IOPAMIDOL (ISOVUE 370) 100 ML BTL IV ONE (11:04)
[2017-01-05] MEDS ORDERED: HEPARIN 10,000 UNIT/10 ML MDV IVP ONE (12:54)
[2017-01-05] MEDS ORDERED: HEPARIN 10,000 UNIT/10 ML MDV IVP PRN (12:54)
[2017-01-05] MEDS ORDERED: HEPARIN/DEXTROSE 500 ML IV SCH (13:00)
[2017-01-05] MEDS ORDERED: fentaNYL 100 MCG/2 ML INJ ONE (15:03)
[2017-01-05] MEDS ORDERED: MIDAZOLAM 2 MG/2 ML VIAL ONE (15:04)
--- NOTE | 2017-01-05 15:39 | SOAPPROG ---
SOAP Progress Note Assessment/Plan: Assessment: pt is 76 yom, RHD, 3 days s/p C3-6 ACDF/I with severe bilateral upper extremity pain and post. interscapular pain. Significant narcotic requirment leading to some oversedation and fall at home. Pt transferred here from [facility] Plan: 01/04/17 15:48 Will discuss with hospitalist, plan of care. I do not see any evidence of airway problems or hematoma on exam. Neuro exam is normal. I recommend increasing the gabepentin to 600 mg tid, and giving iv decadron. Possible Lidocaine patch also. Cont oxycodone, but will add MSContin for baseline. 01/05/17 15:36 pt is post op day 4, s/p C3-6 ACDF/I. Hypoxia w/ P.E. Discussed with Dr. Abdullahi and recommend an IVFilter, and in about 3-4 days will consider converting to heparin then coumadin, given current risk of retropharyngeal hematoma in immediate post op period. Pt not in room (in Radiology), but per family, pts pain control is much better. He apparently likes the lidoderm patches, but refusing MSContin. Will d/c MSContin. Cont PT and OT. Nursing to change anterior cervical dressing daily. Pt may shower with collar and dressing off. Objective: Vital Signs Temp Pulse Resp BP Pulse Ox 36.4 C 79 16 165/82 H 95 01/05/17 12:00 01/05/17 12:00 01/05/17 12:00 01/05/17 12:00 01/05/17 12:00 Laboratory Results 01/05/17 04:24 01/04/17 16:07 01/04/17 01/05/17 01/06/17 05:59 05:59 05:59 Intake Total 750 Output Total 0 Balance 750 ICD10 Worksheet Patient Problems: Problems Problem Status Onset Stenosis of cervical spine region Acute
[2017-01-05] MEDS ORDERED: IOPAMIDOL (ISOVUE-300) 100 ML BTL ONE (15:42)
--- NOTE | 2017-01-05 16:24 | POSTOPPROG ---
Post Op Note Date of Operation: 01/05/17 Surgeon: Quinton Stovall Anesthesia: IV Sedation Pre-op Diagnosis: Pulmonary embolism Post-op Diagnosis: same Indication: contraindication to anticoagulation Procedure: IVC filter Findings: Cook Celect Retrievable IVC filter in good position. Inf/Abcess present in the surg proc area at time of surgery?: No EBL: Minimal
--- NOTE | 2017-01-05 16:48 | ECHO ---
[email or web address] [address] [address] Main: [phone] Fax: Transthoracic Echocardiogram Name: ANISA MARTI MR#: [id number] Study Date: 01/05/2017 Study Time: 02:22 PM Date of : 1940 Age: 76 year(s) Height: 182.9 cm (72 in.) Weight: 81.65 kg (180 lb.) BSA: 2.04 m2 Gender: Male Examination: Echo Indication: Post neck surgery, Hypoxia, New PE Image Quality: Contrast: Requested by: Dee Ashton BP: / Heart Rate: Rhythm: Normal sinus rhythm Indication: Post neck surgery, Hypoxia, New PE Procedure Staff Lode Miner: Alessandro Reardon Reading Physician: Monty Norton Requesting Provider: Conclusions: Normal global systolic LV function. Normal diastolic LV function. Normal study Measurements: Chambers Valvular Assessment AV/MV Valvular Assessment TV/PV Normal Normal Normal Name Value Range Name Value Range Name Value Range Ao Lita (MM): 3.7 cm (2.2 cm-3.7 AV Vmax: 1.48 m/s (1 m/s-1.7 TR Vmax: 2.13 mm/s ( - ) cm) m/s) TR PGmax: 18 mmHg ( - ) IVSd (2D): 0.9 cm (0.6 cm-1.1 AV maxP mmHg ( - ) syst. PAP: 23 mmHg ( - ) cm) LVOT Vmax: 1.03 m/s (0.7 m/s-1.1 PV Vmax: 0.81 m/s (0.6 m/s-0.9 LVDd (2D): 4.6 cm (4.2 cm-5.9 m/s) m/s) cm) MV E Vmax: 1.05 m/s ( - ) PV PGmax: 3 mmHg ( - ) LVDs (2D): 3.1 cm (2.1 cm-4 MV A Vmax: 0.87 m/s ( - ) cm) MV E/A: 1.21 ( - ) LVPWd (2D): 1.2 cm (0.6 cm-1 cm) LVEF (2D): 60 (>=54 %) Continued Measurements: Chambers Valvular Assessment TV/PV Name Value Name Value LADs Lon.6 cm CVP (est.): 5 mmHg LA Area: 21.7 cm2 LA Volume: 65 ml LA Volume Index: 31.9 ml/m2 Patient: ANISA MARTI Study Date: 01/05/2017 Page 1 of 2 02:22 PM Findings: Left Ventricle: Normal size left ventricle. No LV hypertrophy. Normal global systolic LV function. EF is 60 %. No regional wall motion abnormality. Normal diastolic LV function. Right Ventricle: Normal size right ventricle. Left Atrium: The left atrium is normal in size. Right Atrium: The right atrium is normal in size. Mitral Valve: The mitral valve is normal in appearance and function. Aortic Valve: The aortic valve is normal in appearance and function. Tricuspid Valve: The tricuspid valve is normal in appearance and function. Trivial tricuspid valve regurgitation. The pulmonary artery pressure is normal. Pulmonic Valve: The pulmonic valve is normal in appearance and function. Aorta: The aorta is normal. Pericardium: No pericardial effusion. (No Signature Object) Patient: ANISA MARTI Study Date: 01/05/2017 Page 2 of 2 02:22 PM [id number]
--- NOTE | 2017-01-05 17:13 | ASMTCMCOM ---
CM Note CM Note Notes: Reviewed pt's chart. PT/OT recommending no home care but PT is recommending 24 hr care. CM will discuss with pt and tomorrow. Date Signed: 01/05/2017 05:12 PM Electronically Signed By:Macy Marx LCSW
[2017-01-06] MEDS: CEPHALEXIN 500 MG CAP PO SCH ×4 (04:54→21:20)
[2017-01-06 05:28] LABS: HEMATOCRIT 41.4 % (40.0-51.0); HEMOGLOBIN 14.1 g/dL (13.7-17.5); MEAN CELL HEMOGLOBIN 31.2 pg (27.9-34.1); MEAN CELL HEMOGLOBIN CONCENTR. 34.1 g/dL (32.4-36.7); MEAN CELL VOLUME 91.6 fL (81.5-99.8); RED BLOOD CELL COUNT 4.52 10^6/uL (4.40-6.38); RED CELL DISTRIBUTION WIDTH 13.2 % (11.5-15.2)
[2017-01-06 05:38] LABS: ANION GAP 9 mEq/L (8-16); CALCIUM 9.7 mg/dL (8.5-10.4); CARBON DIOXIDE 27 mEq/l (22-31); CHLORIDE 100 mEq/L (97-110); CREATININE 0.8 mg/dL (0.7-1.3); GLOMERULAR FILTRATION RATE > 60; GLUCOSE 110 mg/dL (70-100); POTASSIUM 4.1 mEq/L (3.5-5.2); SODIUM 136 mEq/L (134-144)
[2017-01-06] MEDS: HYDROCHLOROTHIAZIDE 25 MG TAB PO SCH (08:57)
[2017-01-06] MEDS: oxyCODONE IR 5 MG TAB PO PRN (08:57)
[2017-01-06] MEDS: GABAPENTIN 300 MG CAP PO SCH ×3 (08:57→21:20)
[2017-01-06] MEDS: amLODIPine BESYLATE 5 MG TAB PO SCH (08:57)
[2017-01-06] MEDS: PATCH REMOVAL 1 EA PATCH TD SCH ×2 (09:00→09:02)
[2017-01-06] MEDS: LIDOCAINE 5% 1 EA PATCH TD SCH ×2 (09:01→23:05)
--- NOTE | 2017-01-06 13:03 | SOAPPROG ---
SOAP Progress Note Assessment/Plan: Assessment: pt is 76 yom, RHD, 3 days s/p C3-6 ACDF/I with severe bilateral upper extremity pain and post. interscapular pain. Significant narcotic requirment leading to some oversedation and fall at home. Pt transferred here from [facility] Plan: 01/04/17 15:48 Will discuss with hospitalist, plan of care. I do not see any evidence of airway problems or hematoma on exam. Neuro exam is normal. I recommend increasing the gabepentin to 600 mg tid, and giving iv decadron. Possible Lidocaine patch also. Cont oxycodone, but will add MSContin for baseline. 01/05/17 15:36 pt is post op day 4, s/p C3-6 ACDF/I. Hypoxia w/ P.E. Discussed with Dr. Abdullahi and recommend an IVFilter, and in about 3-4 days will consider converting to heparin then coumadin, given current risk of retropharyngeal hematoma in immediate post op period. Pt not in room (in Radiology), but per family, pts pain control is much better. He apparently likes the lidoderm patches, but refusing MSContin. Will d/c MSContin. Cont PT and OT. Nursing to change anterior cervical dressing daily. Pt may shower with collar and dressing off. 01/06/17 12:58 post op day 5, s/p C3-6 ACDF/I for severe stenosis. Pain much better controlled. Will back off on gabepentin back to 300 mg tid. Cont percocet and lidoderm patches. Cont Pt and Ot. PE: has IVC filter. OK to start blood thinners on (will be one week post op). Hospitalist to decide when filter is removed. Pt does not have a PCP and will need someone to follow when discharged regarding blood thinner. Subjective: Pt states his pain is only posterior c- spine. Arm pain is gone. Objective: Vital Signs Temp Pulse Resp BP Pulse Ox 36.6 C 89 18 144/75 H 96 01/06/17 12:00 01/06/17 12:00 01/06/17 12:00 01/06/17 12:00 01/06/17 12:00 Laboratory Results 01/06/17 04:20 01/06/17 04:20 01/05/17 01/06/17 01/07/17 05:59 05:59 05:59 Intake Total 750 Output Total 0 250 Balance 750 -250 Anterior cervical wound clean and dry. No signs of infection. No sign of hematoma. BUE motor 5/5. BLE motor 5/5 except R EHL 3/5 (old0. Lt touch intact BUE/BLE. No Colton's syndrome. ICD10 Worksheet Patient Problems: Problems Problem Status Onset Stenosis of cervical spine region Acute
--- NOTE | 2017-01-06 14:12 | HOSPPROG ---
Hospitalist Progress Note Assessment/Plan: 76-year-old with a history significant only for prostate cancer and chronic neck pain is admitted with hypoxia and encephalopathy status post neck surgery. Overnight he has improved in significantly with resolution of his encephalopathy however he still remains fairly hypoxic. His pain is better controlled currently with the regimen. # PE in the setting of surgery. Patient with recent cervical spine surgery and at high bleed risk post opt. Discussed plan of care with Dr. Mandujano and had IVC filter placed. * Initiate anticoagulation on Saturday or Saturday * Discussed with Dr. Mandujano whether she has a preference for Coumadin or possibly Pradaxa both can be reversed * He will set up an appointment with his physician's assistant front office manager in [place] to follow his INR, he also sees a double needle stitcher in [place] # cervical spine surgery by Dr. Mandujano. Postop care per her team. Pain control improving. Continue physical occupational therapy. * Continue current pain regimen for now Subjective: Doing well today discussed plan of care and prognosis with the patient and family for 40 minutes. Objective: Vital Signs Temp Pulse Resp BP Pulse Ox 36.6 C 89 18 144/75 H 96 01/06/17 12:00 01/06/17 12:00 01/06/17 12:00 01/06/17 12:00 01/06/17 12:00 Laboratory Results 01/06/17 04:20 01/06/17 04:20 01/05/17 01/06/17 01/07/17 05:59 05:59 05:59 Intake Total 750 Output Total 0 250 Balance 750 -250 - Physical Exam Constitutional: no apparent distress Eyes: PERRL Cardiovascular: regular rate and rhythym, no murmur, rub, or gallop Respiratory: no respiratory distress, clear to auscultation Gastrointestinal: normoactive bowel sounds Skin: warm Neurologic: AAOx3 Psychiatric: interacting appropriately, not anxious ICD10 Worksheet Patient Problems: Problems Problem Status Onset Stenosis of cervical spine region Acute
[2017-01-07] MEDS: CEPHALEXIN 500 MG CAP PO SCH ×4 (05:20→21:06)
[2017-01-07 05:59] LABS: ANION GAP 7 mEq/L (8-16); CALCIUM 9.1 mg/dL (8.5-10.4); CARBON DIOXIDE 26 mEq/l (22-31); CHLORIDE 103 mEq/L (97-110); CREATININE 0.7 mg/dL (0.7-1.3); GLOMERULAR FILTRATION RATE > 60; GLUCOSE 83 mg/dL (70-100); POTASSIUM 4.2 mEq/L (3.5-5.2); SODIUM 136 mEq/L (134-144)
[2017-01-07] MEDS: HYDROCHLOROTHIAZIDE 25 MG TAB PO SCH (09:39)
[2017-01-07] MEDS: amLODIPine BESYLATE 5 MG TAB PO SCH (09:40)
[2017-01-07] MEDS: GABAPENTIN 300 MG CAP PO SCH ×3 (09:40→21:05)
[2017-01-07] MEDS: PATCH REMOVAL 1 EA PATCH TD SCH (09:42)
--- NOTE | 2017-01-07 14:06 | HOSPPROG ---
Hospitalist Progress Note Assessment/Plan: 76-year-old with a history significant only for prostate cancer and chronic neck pain is admitted with hypoxia and encephalopathy status post neck surgery. Overnight he has improved in significantly with resolution of his encephalopathy however he still remains fairly hypoxic. His pain is better controlled currently with the regimen. # PE in the setting of surgery. Patient with recent cervical spine surgery and at high bleed risk post opt. Discussed plan of care with Dr. Mandujano and had IVC filter placed. * Initiate anticoagulation on Saturday or Saturday * Will plan on having him follow up with Dr. Stovall in 2-3 weeks after he has been therapeutic on Coumadin to have his IVC filter removed * Dr. Stovall gave him his card with contact info to make this appointment. He can also call the IR suite at [phone] * Discussed with Dr. Mandujano whether she has a preference for Coumadin or possibly Pradaxa both can be reversed * He will set up an appointment with his physician's clerical assistant in [place] to follow his INR, he also sees a livestock sales representative in [place] # cervical spine surgery by Dr. Mandujano. Postop care per her team. Pain control improving. Continue physical occupational therapy. * Continue current pain regimen for now Subjective: Doing well had a lot of questions about the IVC filter otherwise is off oxygen denies significant shortness of breath or chest pain Objective: Vital Signs Temp Pulse Resp BP Pulse Ox 36.6 C 78 16 164/84 H 94 01/07/17 11:42 01/07/17 11:42 01/07/17 11:42 01/07/17 11:42 01/07/17 11:42 Laboratory Results 01/07/17 04:50 01/07/17 04:50 01/06/17 01/07/17 01/08/17 05:59 05:59 05:59 Intake Total 1050 Output Total 250 Balance -250 1050 - Physical Exam Constitutional: no apparent distress Ears, Nose, Mouth, Throat: moist mucous membranes Cardiovascular: regular rate and rhythym, no murmur, rub, or gallop Respiratory: no respiratory distress, clear to auscultation Neurologic: AAOx3 Psychiatric: interacting appropriately ICD10 Worksheet Patient Problems: Problems Problem Status Onset Stenosis of cervical spine region Acute
--- NOTE | 2017-01-07 15:47 | ASMTCMCOM ---
CM Note CM Note Notes: CM met w/ pt and for dispo planning. Pt will most likely d/c independent when medically stable. PT is recommending home, as of yesterday. CM available for changes. Date Signed: 01/07/2017 03:46 PM Electronically Signed By:MYCHAL Salinas
[2017-01-07] MEDS: LIDOCAINE 5% 1 EA PATCH TD SCH (21:07)
[2017-01-08] MEDS: ACETAMINOPHEN 325 MG TAB PO PRN (04:57)
[2017-01-08] MEDS: CEPHALEXIN 500 MG CAP PO SCH ×4 (06:36→21:04)
[2017-01-08] MEDS: GABAPENTIN 300 MG CAP PO SCH ×3 (09:47→21:04)
[2017-01-08] MEDS: amLODIPine BESYLATE 5 MG TAB PO SCH (09:48)
[2017-01-08] MEDS: HYDROCHLOROTHIAZIDE 25 MG TAB PO SCH (09:50)
[2017-01-08] MEDS: PATCH REMOVAL 1 EA PATCH TD SCH (09:51)
--- NOTE | 2017-01-08 13:07 | HOSPPROG ---
Hospitalist Progress Note Assessment/Plan: 76-year-old with a history significant only for prostate cancer and chronic neck pain is admitted with hypoxia and encephalopathy status post neck surgery. Evaluation has revealed a pulmonary embolus. Since he had recent cervical spine surgery Dr. Mandujano wanted to wait on anticoagulation so a IVC filter was placed. Today per Dr. Mandujano recommendations we can start anticoagulation. He will go home and return in a couple weeks for IVC filter removal by Dr. Stovall # PE in the setting of surgery. Patient with recent cervical spine surgery and at high bleed risk post opt. Discussed plan of care with Dr. Mandujano and had IVC filter placed. * Start Lovenox today at 1.5 milligrams/kilogram once daily * Initiate warfarin today as well * Monitor overnight * If stable neurologically on anticoagulation can discharge in the morning * Patient has follow-up scheduled on Saturday in [place] to have his INR followed and Coumadin adjusted * Coumadin teaching and Lovenox teaching today. * Patient also has a master of ceremonies in [place], whom he will follow up with as well. # cervical spine surgery by Dr. Mandujano. Postop care per her team. Pain control improving. Continue physical occupational therapy. * Continue current pain regimen for now * defer gabapentin dosing on dc to Dr. Florez, will continue same for now. dispo: Discharge tomorrow, fu has been set up already by family. Will need RX for lovenox and coumadin. Subjective: doing well, oxygen demands much improved. no chest pain Objective: Vital Signs Temp Pulse Resp BP Pulse Ox 36.4 C 64 16 129/84 H 94 01/08/17 11:45 01/08/17 11:45 01/08/17 11:45 01/08/17 11:45 01/08/17 11:45 Laboratory Results 01/07/17 04:50 01/07/17 04:50 01/07/17 01/08/17 01/09/17 05:59 05:59 05:59 Intake Total 1050 Balance 1050 - Time Spent With Patient Time Spent with Patient: greater than 35 minutes (discussing discharge plans) Time Spent with Patient: Greater than 35 minutes spent on this patients care, greater than 50% of time spent counseling, educating, and coordinating care regarding the above mentioned plan. - Physical Exam Constitutional: no apparent distress Eyes: PERRL, EOMI Respiratory: no respiratory distress Neurologic: AAOx3 Psychiatric: interacting appropriately, not encephalopathic ICD10 Worksheet Patient Problems: Problems Problem Status Onset Stenosis of cervical spine region Acute
[2017-01-08] MEDS: ENOXAPARIN 120 MG/0.8 ML SYR SC SCH (14:18)
[2017-01-08] MEDS: WARFARIN SODIUM 5 MG TAB PO SCH (16:47)
[2017-01-08] MEDS: LIDOCAINE 5% 1 EA PATCH TD SCH (21:04)
[2017-01-09] MEDS: CEPHALEXIN 500 MG CAP PO SCH ×2 (04:52→12:07)
[2017-01-09] MEDS: ACETAMINOPHEN 325 MG TAB PO PRN (04:52)
[2017-01-09 05:42] LABS: HEMATOCRIT 45.2 % (40.0-51.0); HEMOGLOBIN 15.5 g/dL (13.7-17.5); MEAN CELL HEMOGLOBIN 31.4 pg (27.9-34.1); MEAN CELL HEMOGLOBIN CONCENTR. 34.3 g/dL (32.4-36.7); MEAN CELL VOLUME 91.5 fL (81.5-99.8); PROTIME(PATIENT) 13.1 SEC (12.0-15.0); RED BLOOD CELL COUNT 4.94 10^6/uL (4.40-6.38); RED CELL DISTRIBUTION WIDTH 12.9 % (11.5-15.2)
[2017-01-09 07:44] VITALS: RESP 20
[2017-01-09] MEDS: ENOXAPARIN 120 MG/0.8 ML SYR SC SCH (08:48)
[2017-01-09] MEDS: HYDROCHLOROTHIAZIDE 25 MG TAB PO SCH (08:49)
[2017-01-09] MEDS: GABAPENTIN 300 MG CAP PO SCH ×2 (08:52→15:26)
[2017-01-09] MEDS: amLODIPine BESYLATE 5 MG TAB PO SCH (08:52)
[2017-01-09] MEDS: PATCH REMOVAL 1 EA PATCH TD SCH (10:18)
[2017-01-09 11:15] VITALS: BP 153/89; PULSE 77; TEMP 97.5; O2SAT 94
--- NOTE | 2017-01-09 13:44 | PDDCSUM ---
Discharge Summary Discharge Summary: HPI and Hospital Course: 76-year-old with a history significant only for prostate cancer and chronic neck pain is admitted with hypoxia and encephalopathy status post neck surgery. Evaluation has revealed a pulmonary embolus. Since he had recent cervical spine surgery Dr. Mandujano wanted to wait on anticoagulation so a IVC filter was placed. Tper Dr. Mandujano recommendations, anticoagulation started on . Will continue Lovenox/Coumadin. Has f/u with [place] on Saturday for further mgmt. Will need IVC filter removed by Dr. Stovall. Pt and family aware and they will schedule removal. He is not symptomatic today. Doing overall well. Requesting discharge. Discharge Diagnosis: # PE in the setting of surgery. Patient with recent cervical spine surgery and at high bleed risk post opt. Discussed plan of care with Dr. Mandujano and had IVC filter placed. * Lovenox/warfarin * Patient has follow-up scheduled on Saturday in [place] to have his INR followed and Coumadin adjusted * Coumadin teaching and Lovenox teaching provided. * Patient also has a lot technician in [place], whom he will follow up with as well. # cervical spine surgery by Dr. Mandujano. Postop care per her team. Pain control improving. Continue physical occupational therapy. * Continue current pain regimen for now * cont gabapentin. Exam: NAD Cervical collar in place RRR CTAB No LE edema AAOx3 meds: see med rec. F/u: per above Total time spend on discharge is 35 minutes
[2017-01-09] MEDS: WARFARIN SODIUM 5 MG TAB PO SCH (15:26)
--- NOTE | 2017-01-09 16:04 | ASDISCHSUM ---
Discharge Information Plan Status:Home with No Needs Medically Cleared to Leave:01/09/2017 Discharge Date:01/09/2017 03:40 PM CM D/C Disposition: ADT D/C Disposition:Home, Routine, Self-Care Projected Discharge Date:01/09/2017 12:00 AM Transportation at D/C: Discharge Delay Reason: Follow-Up Date:01/09/2017 12:00 AM Discharge Slot: Final Diagnosis: Placement Information Patient Contact Information Contact Name:LOUIS Relationship: Address:[address] City:[place] Alternate Phone: [facility]/Zip Code:[place] [address] Email: Financial Information Financial Class: Primary Plan Desc:MEDICARE INPATIENT Primary Plan Number:[id number] Secondary Plan Desc:MEDICARE SUPPLEMENT Secondary Plan Number:[id number] Assessment Information [facility] CM Progress Note CM Note CM Note Notes: Reviewed pt's chart. PT/OT recommending no home care but PT is recommending 24 hr care. CM will discuss with pt and tomorrow. Date Signed: 01/05/2017 05:12 PM Electronically Signed By:Macy Marx LCSW [facility] CM Progress Note CM Note CM Note Notes: CM met w/ pt and for dispo planning. Pt will most likely d/c independent when medically stable. PT is recommending home, as of yesterday. CM available for changes. Date Signed: 01/07/2017 03:46 PM Electronically Signed By:MYCHAL Salinas Intervention Information Intervention Type:*Incorrect Registration Date of Service:01/04/2017 03:17 PM Patient Type:Inpatient Staff Member:PAWEL Pulliam Kacey Hours:0.25 Discipline: Severity:1 (0-1 Hours) Comment:[facility]istered observation[facility] Intervention Type:*IM-Signed Date of Service:01/09/2017 02:17 PM Patient Type:Inpatient Staff Member:Miya Mcdonnell Hours: Discipline: Severity: Comment:
== END 2017-01-09 15:40 | disposition home or self-care (01) | DRG 254 ==
LOC: EDUNIT# → OBSVTOIN 15:17 → F3N 16:39 → F3E 01-06 15:56
PROVIDERS: ADMIT Hospitalist; ATTEND Family Medicine
PROC: 06H03DZ Insertion of Intraluminal Device into Inferior Vena Cava, Percutaneous Approach (ICD-10-PCS; principal; 2017-01-05)
DX: T81.718A Complication of other artery following a procedure, not elsewhere classified, initial encounter (principal); I26.99 Other pulmonary embolism without acute cor pulmonale; Z98.1 Arthrodesis status; Z85.46 Personal history of malignant neoplasm of prostate
CPT/HCPCS: 92610-GN; 97116-GP; 97161-GP; 97165-GO; C1713; C1769; G8978-GP-CI; G8979-GP-CI; G8980-GP-CI; G8987-GO-CI; G8988-GO-CI; G8989-GO-CI; G8996-GN-CI; G8997-GN-CI; J0690; J1100; J1644; J1650; J2250; J2370; J2405; J2704; J3010; Q9967

== ENCOUNTER 2017-02-04 11:41 | Day surgery (SDC) | payer OTHER ==
[2017-02-04 14:50] VITALS: PULSE 68
[2017-02-04] MEDS ORDERED: OXYCODONE/APAP 5/325 TAB PO PRN (15:48)
[2017-02-04] MEDS ORDERED: IOPAMIDOL (ISOVUE-300) 100 ML BTL ONE (15:49)
--- NOTE | 2017-02-04 15:57 | PDRADPN ---
Radiology Procedure Note Date of Procedure: 02/04/17 Radiologist: Quinton Stovall Anesthesia: Local (Specify) Pre-op Diagnosis: IVC filter for PE Post-op Diagnosis: Same Indication: Anticoagulation is no longer contraindicated. Procedure: 1. IVCgram 2. Removal of IVC filter Finding(s): Patent IVC. Successful filter retrieval from IJV access. Patient declined IV conscious sedation and did well. Inf/Abcess present in the surg proc area at time of surgery?: No EBL: Minimal Complications: 0 Specimen(s): Intact IVC filter, discarded.
[2017-02-04 18:21] VITALS: BP 139/82; RESP 19; TEMP 97.9; O2SAT 97
== END 2017-02-04 17:55 | disposition home or self-care (01) ==
LOC: FIMAGING 11:41
PROVIDERS: ATTEND Radiology Diagnostic Radiology
PROC: 02PY3DZ Removal of Intraluminal Device from Great Vessel, Percutaneous Approach (ICD-10-PCS; principal; 2017-02-04 15:50)
DX: Z45.89 Encounter for adjustment and management of other implanted devices (principal); Z86.711 Personal history of pulmonary embolism
CPT/HCPCS: 37193; 75825; 99152; C1769; J1644; Q9967

== ENCOUNTER → 2018-01-13 | Outpatient (CLI) | payer OTHER | LOC: FIMAGING 07:57 | PROVIDERS: ATTEND Orthopaedic Surgery | DX: Z01.818 Encounter for other preprocedural examination (principal); M17.12 Unilateral primary osteoarthritis, left knee ==

== ENCOUNTER 2018-01-28 05:31 | Observation (INO) | payer OTHER ==
--- NOTE | 2018-01-28 05:23 | GHP ---
DATE OF ADMISSION: 01/28/2018 CURRENT COMPLAINT: Left knee pain. HISTORY OF PRESENT ILLNESS: The patient is a 77-year-old male with a long history of left knee osteo arthritis. He has been treated with conservative measures. It has gotten to the point where it effe cts his activities of daily living. He wished to have surgery in order to resolve the problem. ALLERGIES: He lists no known drug allergies. CURRENT MEDICATIONS: Include amlodipine, Aprodine, Celebrex, hydrochlorothiazide, tramadol. PRIOR MEDICAL PROBLEMS: Include cancer and high blood pressure. PRIOR SURGERIES: Include left knee, right shoulder, inguinal hernia. SOCIAL HISTORY: He is a former smoker. He is a social drinker. PHYSICAL EXAMINATION: HEENT: The patient's pupils are equal, round and reactive to light. CHEST: Clear to auscultation. HEART: Regular rate and rhythm. ABDOMEN: Soft and nontender. EXTREMITIES: His left knee has a varus bow with osteophytic spurring noted medially. X-ray exam reveals [id number] osteoarthritic changes to the knee. ASSESSMENT/PLAN: Patient is status post left knee osteoarthritis. The plan is to take him to the operating room to undergo a left total knee arthroplasty. /[id number]/MODL
[2018-01-28] MEDS ORDERED: LR 1,000 ML IV ONE (06:23)
[2018-01-28] MEDS ORDERED: ROPIVACAINE 0.2% 80 MG, EPINEPHrine 0.2 MG, KETOROLAC TROMETHAMINE 30 MG, morphINE 10 M... IU ONE (06:24)
[2018-01-28] MEDS ORDERED: ACETAMINOPHEN 500 MG TAB PO ONE (06:24)
[2018-01-28] MEDS ORDERED: PREGABALIN 150 MG CAP PO ONE (06:24)
[2018-01-28] MEDS ORDERED: ceFAZolin 2 GM/DEXTROSE 100 ML IV ONE (06:24)
[2018-01-28] MEDS ORDERED: TRANEXAMIC ACID 3,000 MG in NS (SYRINGE) 50 ML IRR ONE (06:24)
[2018-01-28] MEDS ORDERED: PREGABALIN 150 MG CAP ONE (06:28)
[2018-01-28] MEDS ORDERED: CEFAZOLIN 2 GM/DEXTROSE/100 ML BAG IV ONE (06:29)
[2018-01-28] MEDS ORDERED: ACETAMINOPHEN 500 MG TAB ONE (06:29)
[2018-01-28] MEDS ORDERED: THROMBIN (BOVINE) 5,000 UNIT VIAL TP ONE (06:32)
[2018-01-28] MEDS ORDERED: CALCIUM CHLORIDE 1 GM/10 ML INJ ONE (06:32)
[2018-01-28] MEDS ORDERED: BUPIVACAINE/EPI 0.5% 30 ML SDV ONE (06:32)
[2018-01-28] MEDS ORDERED: POLYMYXIN B SULFATE 500,000 UNIT/10 ML SYR IRR ONE (06:33)
[2018-01-28] MEDS ORDERED: BACITRACIN 50,000 UNITS/10 ML SYR IRR ONE (06:33)
[2018-01-28] MEDS ORDERED: MIDAZOLAM 2 MG/2 ML VIAL IVP ONE (06:59)
--- NOTE | 2018-01-28 06:59 | PDANEPAE ---
ANE History of Present Illness 77 yo for TKA ANE Past Medical History - Cardiovascular History Hx Hypertension: Yes Hx Arrhythmias: No Hx Chest Pain: No Hx Coronary Artery / Peripheral Vascular Disease: No Hx CHF / Valvular Disease: No Hx Palpitations: No Cardiovascular History Comment: PE ERIC POST OP CERVICAL FUSION - Pulmonary History Hx COPD: No Hx Asthma/Reactive Airway Disease: No Hx Recent Upper Respiratory Infection: No Hx Oxygen in Use at Home: No Hx Sleep Apnea: No Sleep Apnea Screening Result - Last Documented: Positive - Neurologic History Hx Cerebrovascular Accident: No Hx Seizures: No Hx Dementia: No - Endocrine History Hx Diabetes: No - Renal History Hx Renal Disorders: Yes Renal History Comment: PROSTATECTOMY FOR CA. SOME LEAKAGE - Liver History Hx Hepatic Disorders: No - Neurological & Psychiatric Hx Hx Neurological and Psychiatric Disorders: No - Cancer History Hx Cancer: No Cancer History Comment: PROSTATE - Congenital Disorder History Hx Congenital Disorders: No - GI History Hx Gastrointestinal Disorders: No - Other Health History Other Health History: DDD. DENTAL EXT 12/26/2016 - Chronic Pain History Chronic Pain: Yes (CERVICAL NECK REGION) - Surgical History Prior Surgeries: REMVL SPINAL STIMULATOR 03/2016. LAMINECTOMY X5 10/2011. PROSTATECTOMY FOR CA. SPINAL CORD STIMULATOR ANE Review of Systems Review of Systems: - Exercise capacity METS (RN): 4 METS ANE Patient History - Allergies Allergies/Adverse Reactions: No Known Allergies Allergy (Verified 03/05/16 07:02) - Home Medications Home medications: home medication list seen and reviewed Home Medications: Aspirin 01/15/18 [Last Taken Unknown] HCTZ (*) 01/15/18 [Last Taken Unknown] Herbals/Supplements -Info Only 01/15/18 [Last Taken Unknown] Tramadol HCl 01/15/18 [Last Taken Unknown] - NPO status NPO Status: no food or drink >8 hours - Anes Hx Anes Hx: no prior problems - Smoking Hx Smoking Status: Never smoked ANE Labs/Vital Signs - Vital Signs Height: 6 ft 4 in Weight: 95.254 kg ANE Physical Exam - Airway Neck exam: FROM Mallampati Score: Class 2 Mouth exam: normal dental/mouth exam - Pulmonary Pulmonary: no respiratory distress - Cardiovascular Cardiovascular: regular rate and rhythym - ASA Status ASA Status: II ANE Anesthesia Plan Anesthesia Plan: spinal Regional Anesthesia: single shot NB
[2018-01-28] MEDS ORDERED: fentaNYL 250 MCG/5 ML INJ ONE (07:54)
[2018-01-28] MEDS ORDERED: PROPOFOL/EMULSION 500 MG/50 ML BOTTLE IV ONE ×2 (07:55→09:08)
[2018-01-28] MEDS ORDERED: LIDOCAINE 2% 100 MG/5 ML SYR ONE (07:56)
[2018-01-28] MEDS ORDERED: ROPIVACAINE HCL 150 MG/30 ML INJ ONE (09:51)
[2018-01-28] MEDS ORDERED: oxyCODONE IR 5 MG TAB PO PRN ×2 (10:05→11:13)
[2018-01-28] MEDS ORDERED: NALOXONE HCL 0.4 MG/ML INJ IVP PRN (10:05)
[2018-01-28] MEDS ORDERED: ONDANSETRON 4 MG/2 ML VIAL IVP PRN ×2 (10:05→11:13)
[2018-01-28] MEDS ORDERED: LABETALOL HCL 5 MG/ML 20 ML MDV IVP PRN (10:44)
[2018-01-28] MEDS ORDERED: HYDROmorphONE/DILAUDID 2 MG/ML INJ ONE (10:44)
[2018-01-28] MEDS ORDERED: fentaNYL 100 MCG/2 ML INJ ONE (10:44)
[2018-01-28] MEDS: HYDROmorphONE/DILAUDID 2 MG/ML INJ IVP PRN ×3 (10:48→11:10)
[2018-01-28] MEDS: fentaNYL 100 MCG/2 ML INJ IVP PRN ×2 (10:50→10:58)
[2018-01-28] MEDS ORDERED: TEMAZEPAM 15 MG CAP PO PRN (11:13)
[2018-01-28] MEDS ORDERED: PROMETHAZINE HCL 25 MG/ML INJ IVP PRN (11:13)
[2018-01-28] MEDS ORDERED: TAPENTADOL HCL 50 MG TAB PO PRN (11:13)
[2018-01-28] MEDS ORDERED: PROMETHAZINE HCL 25 MG SUPPR PR PRN (11:13)
[2018-01-28] MEDS ORDERED: MAGNESIUM HYDROXIDE 30 ML UDCUP PO PRN (11:13)
[2018-01-28] MEDS ORDERED: ONDANSETRON DISINTEGRATING 4 MG TAB PO PRN (11:13)
[2018-01-28] MEDS ORDERED: DIPHENOXYLATE/ATROPINE LOMOTIL 1 TAB PO PRN (11:13)
[2018-01-28] MEDS ORDERED: POLYETHYLENE GLYCOL 3350 17 GM PKT PO PRN (11:13)
[2018-01-28] MEDS ORDERED: BISACODYL 10 MG SUPP PR PRN (11:13)
[2018-01-28] MEDS ORDERED: METOCLOPRAMIDE 10 MG/2 ML VIAL IVP PRN (11:13)
[2018-01-28] MEDS ORDERED: diphenhydrAMINE 25 MG CAP PO PRN (11:13)
[2018-01-28] MEDS ORDERED: CYCLOBENZAPRINE 10 MG TAB PO PRN (11:13)
[2018-01-28] MEDS ORDERED: LACTULOSE 20 GM/30 ML UDCUP PO PRN (11:13)
--- NOTE | 2018-01-28 11:13 | POSTOPPROG ---
Post Op Note Date of Operation: 01/28/18 Surgeon: Taylor Guy Airborne Operations Manager: coltrain Anesthesia: LMA Pre-op Diagnosis: l knee oa Procedure: l tkr with robot Inf/Abcess present in the surg proc area at time of surgery?: No Depth: Deep Incisional (Fascial) EBL: 100-500
[2018-01-28] MEDS ORDERED: LR 1,000 ML IV SCH (11:30)
[2018-01-28] MEDS: ACETAMINOPHEN 325 MG TAB PO SCH ×3 (12:49→23:45)
[2018-01-28] MEDS: traMADol 50 MG TAB PO SCH ×3 (12:49→23:45)
--- NOTE | 2018-01-28 12:49 | POSTANESTH ---
Post Anesthetic Evaluation Cardiovascular Status: Normal, Stable Respiratory Status: Normal, Stable Level of Consciousness/Mental Status: Can Participate in Eval Pain Control: Adequate, Prn Tx Ordered Nausea/Vomiting Control: Adequate, Prn Tx Ordered Complications Possibly Related to Anesthesia: None Noted
[2018-01-28] MEDS: KETOROLAC 15 MG/1 ML SDV IVP SCH ×3 (12:50→23:45)
--- NOTE | 2018-01-28 15:51 | GOP ---
DATE OF OPERATION: 01/28/2018 SURGEON: Taylor Guy MD FRUIT OR NUT GROWER: GAMALIEL Sosa, LSA whose presence was medically necessary. ANESTHESIA: LMA. PREOPERATIVE DIAGNOSIS: Left knee osteoarthritis. POSTOPERATIVE DIAGNOSIS: Left knee osteoarthritis. PROCEDURE PERFORMED: Left total knee arthroplasty with use of robot. FINDINGS: INDICATIONS: This is a 77-year-old male with a complicated history of trauma to the left knee that e ventually led to severe osteoarthritic changes within the left knee. This has started affecting his activities of daily living. He would like surgery in order to resolve the problem. DESCRIPTION OF PROCEDURE: The patient brought to the operating room after the left side had been kirti ntified as correct side by the patient, nurse and physician. Once in the operating room, he was plac ed under general anesthesia using an LMA. Once asleep, a tourniquet placed around the upper portion of the left thigh, and the left lower extremity then sterilely prepped and draped in usual fashion us ing GSI solution. Once prepped and draped, limb was exsanguinated, tourniquet inflated to 250 mmHg. Using his old scar, a curvilinear incision was made starting at the tibial tubercle going around the medial portion of the patella and extending into the proximal portion of the thigh. With sharp diss ection carried down through the skin and subcutaneous layers. A medial parapatellar approach was don e through the extensor mechanism, with the patella brought to the side but not everted. Secondary to use of the robot, it was decided to do the patellar cut first. Therefore the knee was brought to fu ll extension. The patellar tendon and quadriceps tendon were held with towel clamps. Soft tissue di ssection was done from around the patella with osteophytes removed. The patella was measured to be n early 30 mm in thickness. Oscillating saw was used to remove the posterior portion of the patella, l eaving 20 mm bone. A metal guard was placed over the cut surface of the bone and attention was turned back to the knee. Once in, the knee was brought to 90 degrees of flexion. A femoral ray and tibial array were put into place with the femoral array placed within the wound and a separate incision mad e for the tibial array. Once in place, the tibial guide and the femoral guide were put into place. Measurements were taken via telemetry with the robot. Once in place, the knee was brought through ra nge of motion. Bony landmarks were recorded. Once in position, a plan was done with the robot. Ten sioning was placed on the MCL and LCL in the extended and flexed positions. Once gained balance via TrackVia computer, it was decided to proceed with cuts. Therefore the robot was used to make the femoral c uts. Once femoral cuts had been made, a trial was put in place and noted to fit securely. Trial was then removed. Attention was turned to the tibia where the robot was used to guide the cuts for this area also. Onc e the cuts were made he was noted to have a large bony fragment on the medial portion of his tibia th at was removed. 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 Once it was removed there was no issues with balancing of the joint afterwards. Trials were put in place, noted to still have issue with full extension. Therefore, it was decided to take anot her 2 mm of bone from the distal end of the thigh since he was tight in extension but not in flexion. Therefore the robot was again used to remove 2 mm of bone from the distal cut. The robot was used to adjust the anterior posterior chamfer cuts. Once completed, trials were again performed, noted to achieve near full extension. Therefore, the wound was irrigated on the femur and tibial sides, with a size 7 Triathlon Tritanium tibial component, press fit, from [employer] put into place and noted to f it securely. At which point a size 8 left cruciate-retaining Triathlon femoral component was put in place and noted to fit securely. Multiple trials were placed on the tibial tray and noted a 9 mm ins ert seemed to fit best. Therefore, a size 7, 9 mm polyethylene insert was snapped into the tibial tr ay and was noted to fit securely. The knee was able to be brought to full extension and a 40 mm Trit anium Triathlon femoral component from [employer] was put into place, noted to fit securely. Joint cock tail was injected into the posterior capsule as well as periosteum of the femur, the tibia and the ex tensor mechanism. The femoral marker and tibial marker removed as well as the femoral and tibial arr ays were also removed. The wound was thoroughly irrigated with Tranexamic acid and was closed in laye rs to include 0 Vicryl suture in a hoojvc-dl-knelv type stitch for the extensor mechanism, with plasm a gel placed intra-articularly. 0 Vicryl and 2-0 Vicryl suture for the subcutaneous layers with plas ma gel placed external to the extensor mechanism, and a 3-0 V-Loc suture in a running subcuticular st itch for the skin. The wound was dressed with Steri-Strips, Xeroform, 4 x 4, and Tegaderm and Kerlix . Leg was completely undraped in the operating room. Tourniquet had been deflated at 88 minutes and was completely removed from the thigh and an Terrell wrap placed around the knee. The patient was then woken up, extubated, transferred onto a stretcher, and sent to recovery room in good condition. TOURNIQUET TIME: 88 minutes. /[id number]/MODL
[2018-01-28] MEDS: ceFAZolin 2 GM/DEXTROSE 100 ML IV SCH ×2 (17:07→23:45)
[2018-01-28] MEDS: FAMOTIDINE 20 MG TAB PO SCH (20:08)
[2018-01-28] MEDS: SENNOSIDES/DOCUSATE SODIUM TAB PO SCH (20:08)
[2018-01-29] MEDS: traMADol 50 MG TAB PO SCH ×2 (05:55→13:17)
[2018-01-29] MEDS: ACETAMINOPHEN 325 MG TAB PO SCH ×2 (05:55→13:18)
[2018-01-29] MEDS: KETOROLAC 15 MG/1 ML SDV IVP SCH (05:56)
[2018-01-29] MEDS: FAMOTIDINE 20 MG TAB PO SCH (08:20)
[2018-01-29] MEDS: SENNOSIDES/DOCUSATE SODIUM TAB PO SCH (08:21)
[2018-01-29] MEDS ORDERED: HYDROCHLOROTHIAZIDE 25 MG TAB PO SCH (09:00)
[2018-01-29] MEDS ORDERED: amLODIPine BESYLATE 5 MG TAB PO SCH (09:00)
[2018-01-29] MEDS ORDERED: RIVAROXABAN 10 MG TAB PO SCH (09:00)
[2018-01-29 12:10] VITALS: BP 155/77
--- NOTE | 2018-01-29 12:21 | ASMTCMCOM ---
CM Note CM Note Notes: Pt had planned L TKA. Pt resides with spouse. OT rec home, PT rec home/outpatient. No CM d/c needs identified. CM available for changes/needs. Date Signed: 01/29/2018 12:20 PM Electronically Signed By:ALEJANDRA Sellers
--- NOTE | 2018-01-29 13:25 | SOAPPROG ---
SOAP Progress Note Assessment/Plan: Assessment: Ernst is a pleasant 77 year old male now POD#1 s/p LTKA with the Shadi. He is doing very well PE: Sanguinous drainage on the dressing. Incision is clean and dry. Extensor mechanism intact. NV intact LLE. Calf is soft to compression without pain. Plan: Dressing removed and new waterproof dressing placed. Xarelto and LIZY hose x 10 days. HEP for ROM and quad strengthening. Follow up in 14 days for repeat evaluation and wound check. 01/29/18 13:20 Objective: Vital Signs Temp Pulse Resp BP Pulse Ox 37.0 C 83 16 155/77 H 94 01/29/18 12:00 01/29/18 12:00 01/29/18 12:00 01/29/18 12:00 01/29/18 12:00 Laboratory Results 01/29/18 04:15 01/28/18 01/29/18 01/30/18 05:59 05:59 05:59 Intake Total 3835 750 Output Total 1350 400 Balance 2485 350 ICD10 Worksheet Patient Problems: Problems Problem Status Onset Stenosis of cervical spine region Acute
--- NOTE | 2018-01-29 13:43 | ASMTLACE ---
LACE Length of stay for Answers: 1 day current admission Acuity / Level of Answers: No Care: Did the patient have an inpatient admission? Comorbidities - select Answers: Opioid dependence all that apply / Chronic pain Other Notes: HTN # of Emergency department Answers: 0 visits in the last 6 months Score: 6 Date Signed: 01/29/2018 01:43 PM Electronically Signed By:ALEJANDRA Sellers
--- NOTE | 2018-02-04 11:20 | GDS ---
CURRENT COMPLAINT: Left knee pain. HISTORY OF PRESENT ILLNESS: This is a 77-year-old male with a complicated history of trauma to the l eft knee that has eventually lead to severe osteoarthritic changes. He wishes to have surgery in ord er to resolve the problem. HOSPITAL COURSE: The patient brought to the operating room on the day of admission, where he underwe nt a left total knee arthroplasty. Postoperatively, he progressed quickly with physical therapy. Hi s pain was able to be kept under control. Once he had reached his physical therapy milestones, he wa s able to be discharged the following day, with instructions to continue with his physical therapy ex ercise and return to the office for further evaluation. DISCHARGE DIAGNOSIS: Left knee osteoarthritis. /[id number]/MODL
== END 2018-01-29 13:37 | disposition home or self-care (01) ==
LOC: INTOOBSV 05:31 → F3N 05:31
PROVIDERS: ADMIT Orthopaedic Surgery; ATTEND Orthopaedic Surgery
DX: M17.12 Unilateral primary osteoarthritis, left knee (principal); I10 Essential (primary) hypertension; Z85.46 Personal history of malignant neoplasm of prostate; Z87.891 Personal history of nicotine dependence; Z98.1 Arthrodesis status
CPT/HCPCS: 27447; 73560; 88311; 97110; 97116; 97161; 97165; C1776; G8978; G8979; G8980; G8987; G8988; G8989; J0171; J0690; J1170; J1885; J2001; J2250; J2270; J2704; J2795; J3010

== ENCOUNTER 2018-04-28 08:15 | Inpatient (IN) | payer OTHER ==
[2018-05-09] MEDS ORDERED: fentaNYL 50 MCG in SYRINGE INTRATHECAL 1 SYR IT ONE ×2 (06:03→14:30)
[2018-05-09] MEDS ORDERED: ACETAMINOPHEN 500 MG TAB PO ONE (06:03)
[2018-05-09] MEDS ORDERED: ceFAZolin 2 GM/DEXTROSE 100 ML IV ONE (06:03)
[2018-05-09] MEDS ORDERED: GABAPENTIN 300 MG CAP PO ONE (06:03)
[2018-05-09] MEDS ORDERED: morphINE PF 0.2 MG in SYRINGE INTRATHECAL 1 SYR IT ONE ×2 (06:03→14:30)
[2018-05-09] MEDS ORDERED: LR 1,000 ML IV ONE (06:04)
[2018-05-09] MEDS ORDERED: LIDOCAINE 1% 2 ML INJ ID PRN (06:04)
--- NOTE | 2018-05-09 06:46 | PDHPUP ---
History & Physical Update H&P update statement: This history and physical update is based on an assessment of the patient which was completed after admission or registration (within 24 hours), but prior to the surgery/procedure. H&P update: no change in patient's condition since H&P completed
[2018-05-09] MEDS ORDERED: CHLORHEXIDINE GLUC HIBICLENS 118 ML BTL TP ONE (06:50)
[2018-05-09] MEDS ORDERED: BUPIVACAINE 0.25% 30 ML SDV ONE (06:50)
[2018-05-09] MEDS ORDERED: CITRATE DEXTROSE SOLN 500 ML BAG ONE ×3 (06:51→15:41)
[2018-05-09] MEDS ORDERED: BACITRACIN 50,000 UNITS/10 ML SYR IRR ONE ×3 (06:51→15:52)
[2018-05-09] MEDS ORDERED: EPINEPHrine 1 MG/ML INJ ONE (06:51)
[2018-05-09] MEDS ORDERED: THROMBIN (BOVINE) 5,000 UNIT VIAL TP ONE ×2 (06:51→09:25)
[2018-05-09] MEDS ORDERED: TRANEXAMIC ACID 1,000 MG in NS 100 ML IV ONE ×2 (07:00→09:24)
[2018-05-09] MEDS ORDERED: REMIFENTANIL HCL 1 MG VIAL ONE ×6 (07:01→16:58)
[2018-05-09] MEDS ORDERED: PROPOFOL/EMULSION 500 MG/50 ML BOTTLE IV ONE ×4 (07:01→15:53)
[2018-05-09] MEDS ORDERED: fentaNYL 100 MCG/2 ML INJ ONE (07:01)
[2018-05-09] MEDS ORDERED: PROPOFOL 200 MG/20 ML VIAL ONE (07:03)
[2018-05-09] MEDS ORDERED: MIDAZOLAM 2 MG/2 ML VIAL IVP ONE (07:07)
[2018-05-09] MEDS ORDERED: ROCURONIUM 50 MG/5 ML VIAL ONE (07:07)
[2018-05-09] MEDS ORDERED: MIDAZOLAM 2 MG/2 ML VIAL ONE (07:11)
[2018-05-09] MEDS ORDERED: THROMBIN (BOVINE) 20,000 UNIT VIAL TP ONE ×4 (07:30→15:07)
--- NOTE | 2018-05-09 07:30 | PDANEPAE ---
ANE History of Present Illness lumbar stenosis ANE Past Medical History - Cardiovascular History Hx Hypertension: Yes Hx Arrhythmias: No Hx Chest Pain: No Hx Coronary Artery / Peripheral Vascular Disease: No Hx CHF / Valvular Disease: No Hx Palpitations: No Cardiovascular History Comment: PE ERIC POST OP CERVICAL FUSION - Pulmonary History Hx COPD: No Hx Asthma/Reactive Airway Disease: No Hx Recent Upper Respiratory Infection: No Hx Oxygen in Use at Home: No Hx Sleep Apnea: No Sleep Apnea Screening Result - Last Documented: Positive - Neurologic History Hx Cerebrovascular Accident: No Hx Seizures: No Hx Dementia: No - Endocrine History Hx Diabetes: No Hypothyroid: No Hyperthyroid: No Obesity: no - Renal History Hx Renal Disorders: Yes Renal History Comment: PROSTATECTOMY FOR CA - Liver History Hx Hepatic Disorders: No - Neurological & Psychiatric Hx Hx Neurological and Psychiatric Disorders: No - Cancer History Hx Cancer: No Cancer History Comment: PROSTATE - Congenital Disorder History Hx Congenital Disorders: No - GI History Hx Gastrointestinal Disorders: No - Other Health History Other Health History: DDD. DENTAL EXT 12/26/2016 - Chronic Pain History Chronic Pain: Yes (BACK R LEG & HIP) - Surgical History Prior Surgeries: L TKA. REMVL SPINAL STIMULATOR 03/2016. LAMINECTOMY X5 2011. PROSTATECTOMY FOR CA. SPINAL CORD STIMULATOR ANE Review of Systems Review of systems is: negative Review of Systems: - Exercise capacity METS (RN): 5 METS ANE Patient History - Allergies Allergies/Adverse Reactions: No Known Allergies Allergy (Verified 03/05/16 07:02) - Home Medications Home medications: home medication list seen and reviewed Home Medications: Hydrochlorothiazide [HCTZ (*)] 25 mg PO DAILY 01/15/18 [Last Taken 05/08/18] Multivitamins [Multivitamin (*)] 1 each PO DAILY 01/28/18 [Last Taken 04/25/18] Harrell-3 Fatty Acids [Fish Oil 1000 mg (*)] 1,000 mg PO DAILY 01/28/18 [Last Taken 04/25/18] Aspirin 04/17/18 [Last Taken 04/18/18] Celebrex 04/17/18 [Last Taken 04/18/18] Tramadol HCl 04/17/18 [Last Taken 05/09/18] - NPO status NPO Since - Liquids (Date): 05/08/18 NPO Since - Liquids (Time): 21:00 NPO Since - Solids (Date): 05/08/18 NPO Since - Solids (Time): 19:30 - Anes Hx Anes Hx: post operative cognitive dysfunction - Smoking Hx Smoking Status: Never smoked ANE Labs/Vital Signs - Vital Signs Blood Pressure: 139/102 Heart Rate: 65 Respiratory Rate: 18 O2 Sat (%): 94 Height: 193.04 cm Weight: 95.254 kg ANE Physical Exam - Airway Neck exam: FROM Mallampati Score: Class 2 Mouth exam: normal dental/mouth exam - Pulmonary Pulmonary: no respiratory distress - Cardiovascular Cardiovascular: regular rate and rhythym - ASA Status ASA Status: II ANE Anesthesia Plan Anesthesia Plan: general endotracheal anesthesia Lines/Monitors: arterial line
[2018-05-09] MEDS ORDERED: ePHEDrine SULFATE 25 MG/5 ML SYR ONE (08:09)
[2018-05-09] MEDS ORDERED: PHENYLEPHRINE 10 MG/ML SDV ONE ×2 (08:12→13:36)
[2018-05-09] MEDS ORDERED: TRANEXAMIC ACID 1,000 MG/10 ML VIAL ONE (09:21)
[2018-05-09] MEDS ORDERED: SURGIFLO MATRIX KIT WITH THROMBIN 8 ML TP ONE ×2 (09:21→09:28)
[2018-05-09] MEDS ORDERED: ceFAZolin 1 GM VIAL ONE ×3 (10:52→16:08)
[2018-05-09] MEDS ORDERED: ALBUMIN 5% 250 ML BOTTLE IV ONE ×3 (11:25→16:12)
[2018-05-09] MEDS ORDERED: HYDROmorphONE/DILAUDID 2 MG/ML INJ ONE (12:37)
[2018-05-09] MEDS ORDERED: VASOPRESSIN 20 UNIT/ML VIAL ONE (14:16)
[2018-05-09] MEDS ORDERED: HYDROmorphONE/DILAUDID 1 MG/ML INJ IVP PRN ×2 (15:37→17:37)
[2018-05-09] MEDS ORDERED: DIAZEPAM 5 MG/ML 1 ML SYR IVP PRN (15:37)
[2018-05-09] MEDS ORDERED: PHENYLEPHRINE HCL 100 MCG/ML SYR IVP PRN (15:37)
[2018-05-09] MEDS ORDERED: ONDANSETRON 4 MG/2 ML VIAL IVP PRN ×2 (15:37→17:33)
[2018-05-09] MEDS ORDERED: ACETAMINOPHEN 500 MG TAB PO PRN (15:37)
[2018-05-09] MEDS ORDERED: OXYCODONE/APAP 5/325 TAB PO PRN (15:37)
[2018-05-09] MEDS ORDERED: LR 500 ML IV PRN (15:37)
[2018-05-09] MEDS ORDERED: NALOXONE HCL 0.4 MG/ML INJ IVP PRN ×2 (15:37→17:33)
[2018-05-09] MEDS ORDERED: epHEDrine SULFATE 10 MG/ML SYR IVP PRN (15:37)
[2018-05-09] MEDS ORDERED: PROMETHAZINE HCL 25 MG/ML INJ IVP PRN (15:37)
[2018-05-09] MEDS ORDERED: ALBUTEROL 3 ML DEYVIAL IH PRN (15:37)
[2018-05-09] MEDS ORDERED: fentaNYL 100 MCG/2 ML INJ IVP PRN (15:37)
[2018-05-09] MEDS ORDERED: METOCLOPRAMIDE 10 MG/2 ML VIAL IVP PRN (15:37)
--- NOTE | 2018-05-09 15:37 | POSTANESTH ---
Post Anesthetic Evaluation Cardiovascular Status: Normal, Stable Respiratory Status: Normal, Stable Level of Consciousness/Mental Status: Can Participate in Eval, Alert and Oriented Pain Control: Adequate, Prn Tx Ordered Nausea/Vomiting Control: Adequate, Prn Tx Ordered Complications Possibly Related to Anesthesia: None Noted
[2018-05-09] MEDS ORDERED: CALCIUM CHLORIDE 1 GM/10 ML INJ ONE (16:07)
[2018-05-09] MEDS ORDERED: diphenhydrAMINE 25 MG CAP PO PRN (17:33)
[2018-05-09] MEDS ORDERED: BISACODYL 10 MG SUPP PR PRN (17:33)
[2018-05-09] MEDS ORDERED: ONDANSETRON DISINTEGRATING 4 MG TAB PO PRN (17:33)
[2018-05-09] MEDS ORDERED: MAGNESIUM HYDROXIDE 30 ML UDCUP PO PRN (17:33)
[2018-05-09] MEDS ORDERED: morphINE PCA 30 MG/30 ML PCA IV PRN (17:33)
[2018-05-09] MEDS ORDERED: LACTULOSE 20 GM/30 ML UDCUP PO PRN (17:33)
--- NOTE | 2018-05-09 17:33 | POSTOPPROG ---
Post Op Note Date of Operation: 05/09/18 Surgeon: Franklin Anderson Lithograph Press Operator: Marcial Sykes PAC Anesthesiologist: MD Raffy Anesthesia: GET(General Endotracheal) Pre-op Diagnosis: Lumbar DJD, critical spinal stenosisL2-L5 Post-op Diagnosis: Same Indication: Bladder/bowel incontinence, bilateral leg pain R>L Procedure: T11-L5 fusion with L1/2,2/3,3/4 TLIF Findings: severe DJD and spinal stenosis, Copious kaley growth and scar tissue Inf/Abcess present in the surg proc area at time of surgery?: No EBL: 3800ml Complications: durotomy x 2 Drains: Son Perez (NO suction to TREY due to durotomy) Specimen(s): Midline curdlike lesion sent for culture
--- NOTE | 2018-05-09 18:05 | SOAPPROG ---
SOAP Progress Note Assessment/Plan: Assessment: status post T11-L5 fusion with L1/2,2/3.3/4 TLIF. Doing well Plan: CPM in ICU HOB flat x 5 days NO suction to TREY 05/09/18 17:58 05/09/18 18:05 Subjective: Awake, comfortable, conversing. Moving everything spontaneously Objective: Vital Signs Temp Pulse Resp BP Pulse Ox 36.8 C 65 18 139/102 H 94 05/09/18 06:13 05/09/18 08:50 05/09/18 08:50 05/09/18 08:50 05/09/18 08:50 Microbiology 05/09/18 08:15 Mycobacterial Smear (NEELAM) - Final Back - Anaerobic Tube/Swab Mycobacterial Culture - Final 05/09/18 08:15 Gram Stain - Final Back - Anaerobic Tube/Swab Neuro: Awake, alert, talking, comfortable TAI to command, Sens +LT BP 143/111 hr : 103 Oxygen: 100Face mask ICD10 Worksheet Patient Problems: Problems Problem Status Onset Stenosis of cervical spine region Acute
--- NOTE | 2018-05-09 18:47 | GOP ---
[f rep st] OPERATIVE REPORT DATE OF OPERATION: 05/09/2018 SURGEON: Franklin Anderson MD NEUROSURGEON: Franklin Anderson MD THREAD SPINNER: Marcial Sykes, PREMATURE ATRIAL CONTRACTION ANESTHESIA: General endotracheal. PREOPERATIVE DIAGNOSIS: 1. Severe multilevel lumbar degenerative scoliosis with critical spinal stenosis, and progressive lo ss of neurologic function. 2. 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 Failed conservative care. High risk surgical candidate for complications and ongoing symptoms given age of 77 years. Comorbidities required surgical intervention and prior surgical history. POSTOPERATIVE DIAGNOSIS: 1. Severe multilevel lumbar degenerative scoliosis with critical spinal stenosis, and progressive lo ss of neurologic function. 2. 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 Failed conservative care. High risk surgical candidate for complications and ongoing symptoms given age of 77 years. Comorbidities required surgical intervention and prior surgical history. PROCEDURE PERFORMED: 1. Redo bilateral L4-5 and L3-4 posterior hemilaminectomy and diskectomy and foraminotomy with far l ateral transfacet decompression at L1-2 and L2-3. 2. T11 through L5 posterior segmental (pedicle screw) fixation and posterolateral fusion with local autograft and bone morphogenic protein. 3. L1-2, L2-3 and L3-4 posterior/transforaminal lumbar interbody fusion with 2 structural PEEK inter body spacers, local autograft and bone morphogenic protein. 4. Identification and repair of CSF leak, requiring extension of laminectomy. 5. Extreme difficulty with extensive scar tissue and distorted anatomy. Use of intraoperative micro scopy, fluoroscopy and computer volumetric stereotactic navigation with intraoperative neurophysiolog ic testing. 6. Injection of intrathecal narcotic analgesics and subcutaneous and intramuscular local anesthesia for postoperative pain control. 7. Exploration of spinal fusion at L5-S1. 8. Surgeon elevators and pediatric physical therapy assistant Marcial Sykes anesthesia general endotracheal. FINDINGS: ESTIMATED BLOOD LOSS: 3800 cc. INDICATIONS: The patient is a 77-year-old man with intractable low back pain and bilateral lower ext remity radicular and neurogenic claudication. Symptoms of bowel and bladder dysfunction secondary to multilevel severe degenerative scoliosis, spondylolisthesis and critical spinal stenosis. He presen ts now for multilevel surgical decompression and stabilization and instrumentation and exploration of spinal fusion. DESCRIPTION OF PROCEDURE: After informed consent was obtained, the patient was taken to the operatin g room and placed in the prone position on the Son table. The lumbosacral area was prepped and d raped in a sterile fashion. After fluoroscopic localization of the correct level, the subcutaneous a nd intramuscular tissues were infiltrated with local anesthesia. A midline linear incision was then created from approximately T11 through L5. This was carried down to the fascial layer, which was the n incised using monopolar electrocautery and carried in the subperiosteal plane along the spinous pro cesses and lamina bilaterally. Intraoperative fluoroscopy was again utilized to verify the correct l evels. Following this, dissection was carried out over the facet joints. Note that there was an ext ensive amount of scar tissue and the anatomy was extremely distorted which made the exposure much mor e difficult than normal, and approximately 3-4 times as time consuming. The microscope was brought i n and redo posterior hemilaminectomies and foraminotomies were performed at L3-4 and L4-5 and new tra nsfacet decompressions were performed at L1-2, L2-3. Again, there was an extensive amount of scar ti ssue and distorted anatomy and bony overgrowth, as well as bony hypertrophy from prior attempted fusi ons which were nonunions. All of this, along with the extensive amount of bleeding, much more than no rmal, made the surgery very difficult and it took approximately 3 times as long as normal. There was also a spinal leak at the L3-4 level due to the bone growth that had severely impinged on the dura t o the point that there was nothing left when I removed the bone. This was patched as best I could wi th running 5-0 Prolene suture along with DuraGen and Gelfoam over that. After this was performed, no further leakage was observed. There was also an area at the L4-5 level similarly eroded into and re quired a stitch and a dural patch and extension of the laminectomy defect. Following this, the wound was copiously irrigated with antibiotic irrigation and meticulous hemostasis were achieved as best w e could. The patient was very oozy and blood much more than normal. Once the bleeding was controlle d, the [email or web address] Neuronavigational System was utilized with computer volumetric stereotactic navigation to place pedicle screws at T11 through L5. Each individual screw was tested neurophysiologically wi th monopolar electrostimulation and interpretation of the potentials by the surgeon. Serial rods wer e then placed first at L3-4, then at L2-3, and then at L1-2 under distraction, during which time comp lete diskectomies were performed at each level with preparation of the endplates and placement of 2 s tructural PEEK interbody spacers, local autograft and bone morphogenic protein at each level for L1-2 , L2-3, and L3-4 posterior/transforaminal lumbar interbody fusions. The short rods were then removed and longer rods with appropriate lordosis were then placed and secured from T11 through L5 with an a ppropriate amount of compression across the interspaces in order to facilitate bony union and to mini matthias the potential for posterior graft migration. The L5-S1 level was explored and inspected and not ed to be solid fusion. Following this, the remaining lamina and transverse processes were extensivel y decorticated from T11 through L5 and local autograft from the facetectomies and bone removal, along with bone morphogenic protein was placed out laterally for posterolateral fusion from T11 through L5 . 200 mcg of Duramorph along with 50 mcg of fentanyl were then injected intrathecally for postoperat samir pain control. A drain was placed and subcutaneous and intramuscular tissues were re-infiltrated with local anesthesia and the wound was closed in a layered fashion using interrupted Vicryl sutures, followed by Dermabond on the skin. COMPLICATIONS: None. DISPOSITION: The patient is currently in the process of being repositioned for extubation. /[id number]/MODL
[2018-05-09] MEDS ORDERED: DOPamine/DEXTROSE 400 MG/250 ML BAG IV ONE (18:52)
[2018-05-09 19:05] LABS: PLATELET COUNT 131 10^3/uL (150-400)
[2018-05-09] MEDS: FAMOTIDINE 20 MG TAB PO SCH (19:52)
[2018-05-09] MEDS: SENNOSIDES/DOCUSATE SODIUM TAB PO SCH (19:52)
[2018-05-09] MEDS ORDERED: NS 1,000 ML IV ONE (20:00)
[2018-05-09] MEDS: NS 1,000 ML IV SCH (20:24)
[2018-05-09] MEDS: POLYETHYLENE GLYCOL 3350 17 GM PKT PO SCH (20:27)
[2018-05-09] MEDS: ACETAMINOPHEN 500 MG TAB PO SCH (22:25)
[2018-05-09] MEDS: GABAPENTIN 300 MG CAP PO SCH (22:25)
[2018-05-09] MEDS: ceFAZolin 2 GM/DEXTROSE 100 ML IV SCH (22:26)
[2018-05-10 04:53] LABS: PLATELET COUNT 113 10^3/uL (150-400)
[2018-05-10] MEDS: GABAPENTIN 300 MG CAP PO SCH ×3 (06:25→22:43)
[2018-05-10] MEDS: ACETAMINOPHEN 500 MG TAB PO SCH ×3 (06:25→22:41)
[2018-05-10] MEDS: ceFAZolin 2 GM/DEXTROSE 100 ML IV SCH (06:26)
--- NOTE | 2018-05-10 08:11 | GCON ---
[f rep st] CONSULTATION DATE OF CONSULTATION: 05/09/2018 CHIEF COMPLAINT: Hypotension. HISTORY OF PRESENT ILLNESS: The patient is a pleasant 77-year-old gentleman with a past medical hist ory of chronic back and neck pain, who was admitted to [facility] on 05/09/2018, with plans for low back surgery. He apparently had about 3800 mL of blood losses during surgery and post operatively became hypotensive and the hospitalist service was consulted for close monitoring. His h emoglobin was measured at 12 when he was hypotensive and fortunately, his blood pressure did graduall y improve with 1-2 L of IV fluids and has started to stabilize. Patient states he did take his blood pressure medications the morning of surgery. His home blood pressure medications include amlodipine and hydrochlorothiazide. No complaints of lightheadedness. No complaints of any low back pain. No shortness of breath or chest pains. PAST MEDICAL HISTORY: Hypertension, chronic neck/back pain, history of prostate cancer status post r adical prostatectomy. PAST SURGICAL HISTORY: Prostatectomy, lumbar spine surgery, cervical spine surgery, knee surgery, an d rotator cuff surgery. MEDICATIONS: Home medications include amlodipine 5 mg daily, aspirin 81 mg daily, Celebrex 100 mg tw ice a day, hydrochlorothiazide 25 mg daily, tramadol 50 mg every 6 hours as needed. ALLERGIES: No known drug allergies. FAMILY HISTORY: Father had a history of cancer. SOCIAL HISTORY: Patient lives with his in [place]. He is a nonsmoker. He has 1 son and 1 d aughter. REVIEW OF SYSTEMS: CONSTITUTIONAL: No complaints of any subjective fevers or chills. ENT: No rece nt upper respiratory illnesses. CARDIOVASCULAR: No complaints of any chest pains, palpitations or s yncopal episodes. RESPIRATORY: No complaints of shortness of breath or productive cough. GI: No n ausea or vomiting. No focal abdominal pain. : No report of any difficulty with urination. NEURO LOGIC: No complaints of any headaches or focal weakness. HEMATOLOGIC: No history of any deep vein thrombosis or pulmonary embolism. PSYCHIATRIC: No history of anxiety or depression. ENDOCRINE: No history of polyuria or heat intolerance. SKIN: No new skin rashes. MUSCULOSKELETAL: No focal andre nt pains. PHYSICAL EXAM: VITAL SIGNS: Temperature 36.4, blood pressure 90/57, heart rate 92, respirations 14, saturating 98% on 3 L non-rebreather in the immediate postoperative setting. GENERAL: Patient appe ars comfortable. He is interactive, awake, alert, conversant, no acute distress. HEENT: Extraocula r movements appear intact. No scleral icterus. Mucous membranes moist. NECK: Supple. No thyroid enlargement noted. CHEST: Clear to auscultation with normal respiratory effort. HEART: Regular ra te and rhythm. No murmurs are appreciated. ABDOMEN: Soft, nontender, nondistended. : Lund cat heter in place with clear yellow urine. EXTREMITIES: Compression devices in place. No significant pitting edema. NEUROLOGIC: Cranial nerves 2-12 appear intact with limited testing of strength secon hany to recent surgery. LABORATORY DATA: White blood cell count 15, hemoglobin 12, platelets 131. Sodium is 137, potassium 3.9, chloride 101, bicarb 28, BUN 18, creatinine 0.9, glucose is 79. AST 35, ALT 35, alkaline phosph atase 69, bilirubin is 1.9. BNP 93. INR is 1.0. ASSESSMENT/PLAN: 1. Acute hypoxic respiratory failure: I suspect this is related to the immediate postoperative sett ing. Monitor oxygen need as we are administering IV fluids aggressively in light of hypotension. 2. Hypotension: Responsive to IV fluids. Suspect secondary to acute blood loss anemia as expected. Continue to trend hemoglobin through the evening time and transfuse if hemoglobin less than 7. 3. Leukocytosis: Possibly reactive. Monitor for fevers. Recheck again in the morning. 4. Hypertension: Hold outpatient antihypertensives, which include amlodipine and hydrochlorothiazid e. 5. Deep venous thrombosis prophylaxis: Continue compression devices. I recommend holding heparin o r Lovenox for now in light of bleeding noted. Disposition: Per Neurosurgery. I appreciate the opportunity to help out in this patient's case. We will follow along during this ho spitalization. /[id number]/MODL
--- NOTE | 2018-05-10 08:33 | NEUSURGPN ---
Date of Surgery: 05/09/18 Post Op Day: 1 Assessment/Plan: 77 yo male status post T11-L5 fusion with L1/2,2/3,3/4 TLIF with durotomy POD#1 - neuro stable - appreciate medicine following - HOB flat for total of 5 days, may bend knees (until 05/14) - TREY drain NOT to suction - pain control - continue mcdermott due to bed rest - H&H stable this morning - to floor later today if ok with medicine Discussed with Dr. Marquez Subjective: No significant back pain. No lower extremity symptoms. Doing well. Objective: Awake. Alert. PERRL. EOMI Following commands Muscle strength full at 5/5 Incision with dressing- some drainage but stable Catheter Insertion Date: 05/09/18 - Physician Discussed Patient with DrPamella: [facility] Neurosurgery Physical Exam - Vitals, I&O, Labs I and O 05/09/18 05/10/18 05/11/18 05:59 05:59 05:59 Intake Total 9375 Output Total 4950 Balance 4425 Weight 95.254 kg Intake: Oral (ml) 300 IV Intake (ml) 7850 IV Infused (ml) 1225 Ns 1,000 ml @ 100 mls/hr 1225 IV CONT JONATAN Rx#: [id number] Output: Urine (ml) 1225 Catheter 1225 Estimated Blood Loss (ml) 3700 TREY Drain Output (ml) 25 Right Back Son Perez 25 Microbiology 05/09/18 08:15 Mycobacterial Smear (NEELAM) - Final Back - Anaerobic Tube/Swab Mycobacterial Culture - Final 05/09/18 08:15 Gram Stain - Final Back - Anaerobic Tube/Swab Vital Signs Temp Pulse Resp BP Pulse Ox 37.0 C 80 16 123/58 H 97 05/10/18 08:00 05/10/18 08:00 05/10/18 08:00 05/10/18 08:00 05/10/18 08:00 Laboratory Results 05/10/18 04:10 05/10/18 04:10 ICD10 Worksheet Patient Problems: Problems Problem Status Onset Stenosis of cervical spine region Acute
[2018-05-10] MEDS ORDERED: HYDROCHLOROTHIAZIDE 25 MG TAB PO SCH (09:00)
[2018-05-10] MEDS ORDERED: amLODIPine BESYLATE 5 MG TAB PO SCH (09:00)
[2018-05-10] MEDS: FAMOTIDINE 20 MG TAB PO SCH ×2 (09:43→22:41)
[2018-05-10] MEDS: SENNOSIDES/DOCUSATE SODIUM TAB PO SCH ×2 (10:44→22:41)
[2018-05-10] MEDS: POLYETHYLENE GLYCOL 3350 17 GM PKT PO SCH ×3 (11:06→22:41)
--- NOTE | 2018-05-10 11:31 | PDMN ---
Medical Necessity Medical necessity: [facility] [place] S820 Lumbar Fusion, 3 days: 77 yo s/p L1/L2 and L2/4 TLIF Lum Bernstein Fusion w/ Stealth, T11/L5 Fusion Post w/ Stealth, MC IP only
--- NOTE | 2018-05-10 12:59 | HOSPPROG ---
Hospitalist Progress Note Assessment/Plan: 77-year-old with chronic back issues is admitted by Neurosurgery for a T11 through L5 back fusion. Postoperatively he had some hypotension and respiratory failure your consult to address this. # hypotension, resolving. Likely secondary to blood loss and anesthesia. * IV fluids as needed * Holding blood pressure medications * recheck renal function in am due to hypotension # respiratory failure, slowly improving will monitor # DVT prophylaxis, patient high risk given previous history of massive PE. * Continue SCDs * Holding chemical prophylaxis due to extensive back surgery and perioperative blood loss. Subjective: Patient new to or and chart reviewed. Discussed in multidisciplinary rounds no specific complaints pain well controlled Objective: Vital Signs Temp Pulse Resp BP Pulse Ox 37.2 C 88 20 115/53 L 98 05/10/18 12:00 05/10/18 12:00 05/10/18 12:00 05/10/18 12:00 05/10/18 12:00 Microbiology 05/09/18 08:15 Gram Stain - Final Back - Anaerobic Tube/Swab 05/09/18 08:15 Mycobacterial Smear (NEELAM) - Final Back - Anaerobic Tube/Swab Mycobacterial Culture - Final Laboratory Results 05/10/18 10:00 05/10/18 04:10 05/09/18 05/10/18 05/11/18 05:59 05:59 05:59 Intake Total 9375 Output Total 4950 Balance 4425 - Physical Exam Constitutional: uncomfortable Eyes: PERRL Ears, Nose, Mouth, Throat: moist mucous membranes Cardiovascular: regular rate and rhythym Respiratory: no respiratory distress Gastrointestinal: soft, non-tender abdomen Genitourinary: no bladder fullness Skin: warm Musculoskeletal: other (Back pain, lying flat unable to sit up due to recent spine surgery) Neurologic: AAOx3 Psychiatric: interacting appropriately, not anxious ICD10 Worksheet Patient Problems: Problems Problem Status Onset Stenosis of cervical spine region Acute
[2018-05-10] MEDS: traMADol 50 MG TAB PO PRN (14:27)
[2018-05-10] MEDS: NS 1,000 ML IV SCH (14:59)
--- NOTE | 2018-05-10 15:28 | ASMTCMCOM ---
CM Note CM Note Notes: 05/10/2018 Case Management Note Discussed pt during rounds today. Son present. Pt s/p T11-L5 fusion. Pt on bedrest until Saturday. Therapy evals to happen at that time. Osmani le Garcia [phone] visited pt and family today at request of surgeon. Faxed referral. Case Management d/c poc: to be determined. Case Management to follow. Date Signed: 05/10/2018 03:28 PM Electronically Signed By:Steph Harris RN
[2018-05-10] MEDS ORDERED: oxyCODONE IR 5 MG TAB PO PRN (20:19)
[2018-05-10] MEDS ORDERED: NALOXONE HCL 0.4 MG/ML INJ IVP PRN (20:20)
[2018-05-10] MEDS: HYDROmorphONE/DILAUDID 6 MG/30 ML PCA IV PRN (21:16)
--- NOTE | 2018-05-11 05:04 | HOSPPROG ---
Hospitalist Progress Note Assessment/Plan: XC: Patient w/ fever of 38.5 tonight; no symptoms. This could be cytokine release noting recent surgery. Will obtain lactate, UA, CXR, and blood cultures for evaluation. Objective: Vital Signs Temp Pulse Resp BP Pulse Ox 37.5 C 95 16 122/68 H 92 05/11/18 02:33 05/11/18 04:00 05/11/18 04:00 05/11/18 04:00 05/11/18 04:00 Microbiology 05/09/18 08:15 Gram Stain - Final Back - Anaerobic Tube/Swab Laboratory Results 05/10/18 14:30 05/10/18 04:10 05/09/18 05/10/18 05/11/18 05:59 05:59 05:59 Intake Total 9564 2164 Output Total 0412 6792 Balance 4425 -141 ICD10 Worksheet Patient Problems: Problems Problem Status Onset Stenosis of cervical spine region Acute
[2018-05-11] MEDS: GABAPENTIN 300 MG CAP PO SCH ×3 (06:20→21:20)
[2018-05-11] MEDS: ACETAMINOPHEN 500 MG TAB PO SCH ×3 (07:25→22:50)
--- NOTE | 2018-05-11 08:08 | NEUSURGPN ---
Date of Surgery: 05/09/18 Post Op Day: 2 Assessment/Plan: 77 yo male status post T11-L5 fusion with L1/2,2/3,3/4 TLIF with durotomy POD#2 - neuro stable - appreciate medicine following - febrile overnight, encourage IS - HOB flat for total of 5 days, may bend knees (until 05/14) - TREY drain NOT to suction - pain control - continue mcdermott due to bed rest - H&H stable this morning - monitor incision for drainage Subjective: Awake. Alert. PERRL. Muscle strength full at 5/5 Incision with drainage, dressing changed Catheter Insertion Date: 05/09/18 Neurosurgery Physical Exam - Vitals, I&O, Labs I and O 05/10/18 05/11/18 05/12/18 05:59 05:59 05:59 Intake Total 9375 2969 Output Total 4950 3390 Balance 4425 -421 Weight 95.254 kg Intake: Oral (ml) 300 1825 IV Intake (ml) 7850 IV Infused (ml) 1225 1144 Ns 1,000 ml @ 100 mls/hr 1225 1144 IV CONT JONATAN Rx#: [id number] Output: Urine (ml) 1225 3350 Catheter 1225 3350 Estimated Blood Loss (ml) 3700 TREY Drain Output (ml) 25 40 Right Back Son Perez 25 40 Microbiology 05/09/18 08:15 Gram Stain - Final Back - Anaerobic Tube/Swab Vital Signs Temp Pulse Resp BP Pulse Ox 37.2 C 98 13 147/71 H 91 L 05/11/18 07:41 05/11/18 07:41 05/11/18 07:41 05/11/18 07:41 05/11/18 07:41 Laboratory Results 05/11/18 04:24 05/11/18 04:24 ICD10 Worksheet Patient Problems: Problems Problem Status Onset Stenosis of cervical spine region Acute
[2018-05-11 08:57] LABS: PLATELET COUNT 102 10^3/uL (150-400)
[2018-05-11] MEDS: POLYETHYLENE GLYCOL 3350 17 GM PKT PO SCH ×3 (09:12→21:20)
[2018-05-11] MEDS: FAMOTIDINE 20 MG TAB PO SCH ×2 (09:14→21:20)
[2018-05-11] MEDS: SENNOSIDES 1 TAB PO SCH (09:14)
[2018-05-11] MEDS: SENNOSIDES/DOCUSATE SODIUM TAB PO SCH ×2 (09:15→21:20)
[2018-05-11] MEDS: HYDROmorphONE/DILAUDID 6 MG/30 ML PCA IV PRN (13:58)
[2018-05-11] MEDS: METHOCARBAMOL 750 MG TAB PO PRN ×2 (14:05→21:20)
[2018-05-11] MEDS: traMADol 50 MG TAB PO PRN ×2 (14:11→21:20)
[2018-05-12] MEDS: METHOCARBAMOL 750 MG TAB PO PRN ×2 (04:12→18:41)
[2018-05-12] MEDS: traMADol 50 MG TAB PO PRN (04:12)
[2018-05-12] MEDS: GABAPENTIN 300 MG CAP PO SCH ×3 (06:17→22:23)
--- NOTE | 2018-05-12 07:33 | SOAPPROG ---
SOAP Progress Note Assessment/Plan: Assessment: 77 yo M POD #3 T11-L5 fusion with L1-4 TLIF and durotomy Plan: neuro: stable hob flat with bedrest until 05/14/18 TREY x 1 but not to suction PT/OT constipation, RN to be aggressive with bowel protocol scd/starr/lovenox for dvt prophylaxis please call with neuro changes discussed with Dr Marquez 05/12/18 07:31 Subjective: + back pain, no leg pain, no weakness. Objective: Vital Signs Temp Pulse Resp BP Pulse Ox 36.5 C 90 17 153/83 H 91 L 05/12/18 03:22 05/12/18 03:22 05/12/18 03:22 05/12/18 03:22 05/12/18 03:22 Microbiology 05/09/18 08:15 Gram Stain - Final Back - Anaerobic Tube/Swab Laboratory Results 05/11/18 04:24 05/11/18 04:24 05/11/18 05/12/18 05/13/18 05:59 05:59 05:59 Intake Total 2969 800 500 Output Total 3390 1490 560 Balance -421 -690 -60 AAOx4, +FC PERRL, EOMI, no facial droop 5/5 + light touch C/D/I ICD10 Worksheet Patient Problems: Problems Problem Status Onset Stenosis of cervical spine region Acute
--- NOTE | 2018-05-12 08:01 | HOSPPROG ---
Hospitalist Progress Note Assessment/Plan: 77-year-old with chronic back issues is admitted by Neurosurgery for a T11 through L5 back fusion. Postoperatively he had some hypotension and respiratory failure your consult to address this. Pt seen on 05/11/2018. Had a fever this am and no obvious cause. He has been afebrile since then and feels good except for back pain. # Fever: likely atelectasis. CXR unremarkable, UA wnl for mcdermott cath. blood cultures NTD. * observe for now, pt to push IS # hypotension, resolved. Likely secondary to blood loss and anesthesia. * IV fluids as needed * Holding blood pressure medications # respiratory failure, slowly improving will monitor, hampered by bed rest. # T11-L5 fusion, pt with TREY drain and needs to be flat on back for 5 days total (saturday) Had significant pain with move from ICU to floor but doing better now. * post op care per NS # DVT prophylaxis, patient high risk given previous history of massive PE. * Continue SCDs * Holding chemical prophylaxis due to extensive back surgery and perioperative blood loss. * recommend starting prophylaxis when OK with NS, does not need moth exterminator AC Subjective: Pt seen and examined on 10/08/2018. complained of a lot of pain with moving from ICU to 3N. better now. uncomfortable, but to be expected. no CP or SOB. Objective: Vital Signs Temp Pulse Resp BP Pulse Ox 36.3 C 89 17 121/77 H 88 L 05/12/18 07:40 05/12/18 07:40 05/12/18 07:40 05/12/18 07:40 05/12/18 07:40 Microbiology 05/09/18 08:15 Gram Stain - Final Back - Anaerobic Tube/Swab Laboratory Results 05/11/18 04:24 05/11/18 04:24 05/11/18 05/12/18 05/13/18 05:59 05:59 05:59 Intake Total 2969 800 500 Output Total 3390 1490 560 Balance -421 -690 -60 - Physical Exam Constitutional: uncomfortable Eyes: PERRL Ears, Nose, Mouth, Throat: moist mucous membranes Cardiovascular: regular rate and rhythym, no murmur, rub, or gallop Respiratory: no respiratory distress, clear to auscultation Gastrointestinal: soft, non-tender abdomen Genitourinary: mcdermott in urethra Skin: warm Musculoskeletal: pain with ROM Neurologic: AAOx3 Psychiatric: interacting appropriately, not anxious ICD10 Worksheet Patient Problems: Problems Problem Status Onset Stenosis of cervical spine region Acute
[2018-05-12] MEDS: SENNOSIDES/DOCUSATE SODIUM TAB PO SCH ×4 (08:13→22:26)
[2018-05-12] MEDS: FAMOTIDINE 20 MG TAB PO SCH ×2 (08:13→22:23)
[2018-05-12] MEDS: POLYETHYLENE GLYCOL 3350 17 GM PKT PO SCH ×3 (08:14→22:26)
[2018-05-12] MEDS: ACETAMINOPHEN 500 MG TAB PO SCH ×3 (08:33→22:24)
[2018-05-12] MEDS ORDERED: LACTULOSE 20 GM/30 ML UDCUP PO PRN (09:39)
[2018-05-12] MEDS ORDERED: MAGNESIUM HYDROXIDE 30 ML UDCUP PO PRN (09:39)
[2018-05-12] MEDS ORDERED: POLYETHYLENE GLYCOL 3350 17 GM PKT PO PRN (09:39)
[2018-05-12] MEDS ORDERED: BISACODYL 10 MG SUPP PR PRN (09:39)
--- NOTE | 2018-05-12 13:30 | HOSPPROG ---
Hospitalist Progress Note Assessment/Plan: Ernst is a 77-year-old with chronic back issues is admitted by Neurosurgery for a T11 through L5 back fusion. Postoperatively he had some hypotension and respiratory failure your consult to address this. Pt seen on 05/11/2018. Had a fever this am and no obvious cause. He has been afebrile since then and feels good except for back pain. First encounter, chart reviewed. # Fever -chest x ay ok -ua no infectious etiology -bc no growth -no further fever # hypotension, resolved. -holding bp meds # respiratory failure, slowly improving will monitor, hampered by bed rest. # T11-L5 fusion with L1-4 TLIF and durotomy, pt with TREY drain and needs to be flat on back for 5 days total (saturday) Had significant pain with move from ICU to floor but doing better now. # DVT prophylaxis, patient high risk given previous history of PE w infarct -spoke w neurosurgery and they are fine w starting lovenox -? if he still has the filter in place #constipation -has been given the bowel protocol without good results -will give a dose of mag citrate now #plan; start LMWH, mag citrate Subjective: Ernst is c/o feeling bloated, hasn't had a bowel movement in several days. Objective: Vital Signs Temp Pulse Resp BP Pulse Ox 36.9 C 92 18 158/81 H 94 05/12/18 11:45 05/12/18 11:45 05/12/18 11:45 05/12/18 11:45 05/12/18 11:45 Microbiology 05/09/18 08:15 Gram Stain - Final Back - Anaerobic Tube/Swab Laboratory Results 05/11/18 04:24 05/11/18 04:24 05/11/18 05/12/18 05/13/18 05:59 05:59 05:59 Intake Total 2969 800 500 Output Total 3390 1490 930 Balance -421 -690 -430 - Physical Exam Constitutional: appears nourished, not in pain, uncomfortable Eyes: PERRL Ears, Nose, Mouth, Throat: hearing normal Cardiovascular: regular rate and rhythym Respiratory: no respiratory distress, reduced air movement Gastrointestinal: normoactive bowel sounds, other (large and round) Genitourinary: mcdermott in urethra Skin: warm Musculoskeletal: other (bedrest) Neurologic: AAOx3 Psychiatric: interacting appropriately ICD10 Worksheet Patient Problems: Problems Problem Status Onset Stenosis of cervical spine region Acute
[2018-05-12] MEDS ORDERED: PROMETHAZINE HCL 25 MG/ML INJ IVP PRN (14:00)
[2018-05-12] MEDS ORDERED: BISACODYL 10 MG SUPP PR ONE (15:13)
[2018-05-12] MEDS: SENNOSIDES 1 TAB PO SCH (15:54)
[2018-05-12] MEDS ORDERED: MAGNESIUM CITRATE 300 ML BOTTLE PO ONE (16:52)
[2018-05-12] MEDS: HYDROmorphONE/DILAUDID 2 MG TAB PO PRN ×2 (17:06→22:24)
[2018-05-12] MEDS: ENOXAPARIN 40 MG/0.4 ML SYR SC SCH (17:07)
[2018-05-12] MEDS: amLODIPine BESYLATE 5 MG TAB PO SCH (22:24)
[2018-05-12] MEDS: CETIRIZINE 10 MG TAB PO SCH (22:24)
[2018-05-12] MEDS: FLUTICASONE NASAL 120 SPRAYS/16 GM MDI EACHNARE SCH (22:26)
[2018-05-13 05:19] LABS: PLATELET COUNT 141 10^3/uL (150-400)
[2018-05-13] MEDS: ACETAMINOPHEN 500 MG TAB PO SCH ×3 (06:07→22:43)
[2018-05-13] MEDS: HYDROmorphONE/DILAUDID 2 MG TAB PO PRN ×5 (06:07→22:45)
[2018-05-13] MEDS: GABAPENTIN 300 MG CAP PO SCH ×3 (06:07→22:03)
--- NOTE | 2018-05-13 08:08 | SOAPPROG ---
SOAP Progress Note Assessment/Plan: Assessment: 77 yo M POD #4 T11-L5 fusion with L1-4 TLIF and durotomy Plan: neuro: stable hob flat with bedrest until 05/14/18 TREY removed 05/12 PT/OT constipation, BM x 3 on 05/13, continue to follow scd/starr/lovenox for dvt prophylaxis Appreciate Hospitalist help with medical issues please call with neuro changes discussed with Dr Marquez 05/12/18 07:31 05/13/18 08:06 Subjective: + back pain, mild ache in left thigh. No weakness. no headaches. Objective: Vital Signs Temp Pulse Resp BP Pulse Ox 37.0 C 95 18 176/93 H 92 05/13/18 04:00 05/13/18 04:00 05/13/18 04:00 05/13/18 04:00 05/13/18 04:00 Microbiology 05/09/18 08:15 Gram Stain - Final Back - Anaerobic Tube/Swab Laboratory Results 05/13/18 04:49 05/11/18 04:24 05/12/18 05/13/18 05/14/18 05:59 05:59 05:59 Intake Total 800 1500 Output Total 1490 3730 Balance -690 -2230 AAOx4, +FC PERRL EOMI, no facial droop 5/5 + light touch C/D/I ICD10 Worksheet Patient Problems: Problems Problem Status Onset Stenosis of cervical spine region Acute
[2018-05-13] MEDS: ENOXAPARIN 40 MG/0.4 ML SYR SC SCH (10:11)
[2018-05-13] MEDS: FAMOTIDINE 20 MG TAB PO SCH ×2 (10:13→22:03)
[2018-05-13] MEDS: CETIRIZINE 10 MG TAB PO SCH (10:13)
[2018-05-13] MEDS: FLUTICASONE NASAL 120 SPRAYS/16 GM MDI EACHNARE SCH (10:14)
[2018-05-13] MEDS: POLYETHYLENE GLYCOL 3350 17 GM PKT PO SCH ×3 (10:19→22:04)
[2018-05-13] MEDS: SENNOSIDES 1 TAB PO SCH (10:20)
[2018-05-13] MEDS: SENNOSIDES/DOCUSATE SODIUM TAB PO SCH ×2 (10:20→22:04)
[2018-05-13] MEDS: amLODIPine BESYLATE 5 MG TAB PO SCH (12:33)
[2018-05-13] MEDS: HYDROCHLOROTHIAZIDE 25 MG TAB PO SCH (12:33)
[2018-05-13] MEDS: METHOCARBAMOL 750 MG TAB PO PRN ×2 (12:54→18:53)
[2018-05-13] MEDS: SIMETHICONE 80 MG TAB CHEW PO PRN (12:55)
--- NOTE | 2018-05-13 14:47 | ASMTCMCOM ---
CM Note CM Note Notes: Pt is still on bed rest until tomorrow. PT/OT to eval when appropriate. Pt was pre-arranged with [facility]. Pt and dghtr have been bedside. CM to follow, d/c plan is TBD. Date Signed: 05/13/2018 02:46 PM Electronically Signed By:ALEJANDRA Sellers
--- NOTE | 2018-05-13 16:06 | HOSPPROG ---
Hospitalist Progress Note Assessment/Plan: Ernst is a 77-year-old with chronic back issues is admitted by Neurosurgery for a T11 through L5 back fusion. Postoperatively he had some hypotension and respiratory failure your consult to address this. Pt seen on 05/11/2018. Had a fever this am and no obvious cause. He has been afebrile since then and feels good except for back pain. # Fever -chest x ray ok -ua no infectious etiology -bc no growth -no further fever # hypotension, resolved. -resumed bp meds, blood pressure is now elevated #htn -home meds resumed # respiratory failure, slowly improving will monitor, hampered by bed rest. 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 Objective: Vital Signs Temp Pulse Resp BP Pulse Ox 37.2 C 89 17 140/74 H 95 05/13/18 15:39 05/13/18 15:39 05/13/18 15:39 05/13/18 15:39 05/13/18 15:39 Microbiology 05/09/18 08:15 Gram Stain - Final Back - Anaerobic Tube/Swab Laboratory Results 05/13/18 04:49 05/11/18 04:24 05/12/18 05/13/18 05/14/18 05:59 05:59 05:59 Intake Total 800 1500 Output Total 1490 3730 400 Balance -690 -2230 -400 - Physical Exam Constitutional: no apparent distress, appears nourished, uncomfortable Ears, Nose, Mouth, Throat: hearing normal Cardiovascular: regular rate and rhythym Respiratory: no respiratory distress, reduced air movement Gastrointestinal: normoactive bowel sounds, soft, non-tender abdomen Genitourinary: mcdermott in urethra Skin: warm Neurologic: AAOx3 Psychiatric: interacting appropriately ICD10 Worksheet Patient Problems: Problems Problem Status Onset Stenosis of cervical spine region Acute
[2018-05-14] MEDS: traMADol 50 MG TAB PO PRN ×3 (00:24→12:33)
[2018-05-14] MEDS: METHOCARBAMOL 750 MG TAB PO PRN ×3 (02:04→14:39)
[2018-05-14] MEDS: HYDROmorphONE/DILAUDID 2 MG TAB PO PRN ×5 (03:54→23:56)
[2018-05-14] MEDS: GABAPENTIN 300 MG CAP PO SCH ×3 (06:02→21:34)
[2018-05-14] MEDS: ACETAMINOPHEN 500 MG TAB PO SCH ×3 (06:36→21:34)
[2018-05-14] MEDS: SENNOSIDES/DOCUSATE SODIUM TAB PO SCH ×2 (07:10→21:41)
[2018-05-14] MEDS: SENNOSIDES 1 TAB PO SCH (07:10)
[2018-05-14] MEDS: POLYETHYLENE GLYCOL 3350 17 GM PKT PO SCH ×3 (07:11→21:41)
[2018-05-14] MEDS: ENOXAPARIN 40 MG/0.4 ML SYR SC SCH (08:10)
[2018-05-14] MEDS: HYDROCHLOROTHIAZIDE 25 MG TAB PO SCH (08:11)
[2018-05-14] MEDS: CETIRIZINE 10 MG TAB PO SCH (08:11)
[2018-05-14] MEDS: FAMOTIDINE 20 MG TAB PO SCH ×2 (08:11→21:34)
[2018-05-14] MEDS: amLODIPine BESYLATE 5 MG TAB PO SCH (08:11)
[2018-05-14] MEDS: FLUTICASONE NASAL 120 SPRAYS/16 GM MDI EACHNARE SCH (08:12)
[2018-05-14] MEDS: SIMETHICONE 80 MG TAB CHEW PO PRN (08:15)
--- NOTE | 2018-05-14 08:19 | SOAPPROG ---
SOAP Progress Note Assessment/Plan: Assessment: Assessment: 77 yo M POD #5 T11-L5 fusion with L1-4 TLIF and durotomy. Neuro stable. Plan: HOB up today slowly, monitor for positional WILSON. neuro: stable TREY removed 05/12 PT/OT scd/starr/lovenox for dvt prophylaxis Appreciate Hospitalist help with medical issues please call with neuro changes discussed with Dr Marquez 05/14/18 09:49 Subjective: Lying flat, comforable overall. Had loose stool yesterday. No new neuro issues. pain controlled. Objective: Vital Signs Temp Pulse Resp BP Pulse Ox 37.1 C 80 18 158/74 H 94 05/14/18 07:44 05/14/18 07:44 05/14/18 07:44 05/14/18 08:11 05/14/18 07:44 Microbiology 05/09/18 08:15 Gram Stain - Final Back - Anaerobic Tube/Swab Laboratory Results 05/13/18 04:49 05/11/18 04:24 05/13/18 05/14/18 05/15/18 05:59 05:59 05:59 Intake Total 1500 700 400 Output Total 3730 3550 900 Balance -9650 -2850 -500 Neuro: TAI, sens + LT right DF 4/5 incision: CDI, no evidence of clear or bloody drainage. No TREY. ICD10 Worksheet Patient Problems: Problems Problem Status Onset Stenosis of cervical spine region Acute
--- NOTE | 2018-05-14 08:38 | HOSPPROG ---
Hospitalist Progress Note Assessment/Plan: Ernst is a 77-year-old with chronic back issues is admitted by Neurosurgery for a T11 through L5 back fusion. Postoperatively he had some hypotension and respiratory failure. # Fever -chest x ray ok -ua no infectious etiology -bc no growth -no further fever # hypotension, resolved. -resumed bp meds, blood pressure is now elevated #htn -home meds resumed -still a bit elevated today # respiratory failure, slowly improving will monitor, hampered by bed rest. 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 Hopefully, will tolerate sitting up today. Subjective: Ernst is feeling well this morning. No complaints Objective: Vital Signs Temp Pulse Resp BP Pulse Ox 37.1 C 80 18 158/74 H 94 05/14/18 07:44 05/14/18 07:44 05/14/18 07:44 05/14/18 08:11 05/14/18 07:44 Microbiology 05/09/18 08:15 Gram Stain - Final Back - Anaerobic Tube/Swab Laboratory Results 05/13/18 04:49 05/11/18 04:24 05/13/18 05/14/18 05/15/18 05:59 05:59 05:59 Intake Total 1500 700 400 Output Total 3730 3550 900 Balance -2230 -6050 -500 - Physical Exam Constitutional: appears nourished, not in pain Eyes: PERRL Ears, Nose, Mouth, Throat: hearing normal Cardiovascular: regular rate and rhythym Respiratory: no respiratory distress, reduced air movement Gastrointestinal: normoactive bowel sounds Genitourinary: mcdermott in urethra Skin: warm Musculoskeletal: other (bedrest) Neurologic: AAOx3 Psychiatric: interacting appropriately, not anxious ICD10 Worksheet Patient Problems: Problems Problem Status Onset Stenosis of cervical spine region Acute
[2018-05-15] MEDS: GABAPENTIN 300 MG CAP PO SCH ×3 (05:19→23:02)
[2018-05-15] MEDS: ACETAMINOPHEN 500 MG TAB PO SCH ×3 (05:19→23:03)
[2018-05-15] MEDS: HYDROmorphONE/DILAUDID 2 MG TAB PO PRN ×3 (05:19→19:48)
[2018-05-15] MEDS: SENNOSIDES/DOCUSATE SODIUM TAB PO SCH ×2 (07:34→20:48)
[2018-05-15] MEDS: POLYETHYLENE GLYCOL 3350 17 GM PKT PO SCH ×3 (07:34→22:08)
[2018-05-15] MEDS: SENNOSIDES 1 TAB PO SCH (07:34)
[2018-05-15] MEDS: FAMOTIDINE 20 MG TAB PO SCH ×2 (08:03→19:49)
[2018-05-15] MEDS: CETIRIZINE 10 MG TAB PO SCH (08:03)
[2018-05-15] MEDS: amLODIPine BESYLATE 5 MG TAB PO SCH (08:03)
[2018-05-15] MEDS: ENOXAPARIN 40 MG/0.4 ML SYR SC SCH (08:04)
[2018-05-15] MEDS: HYDROCHLOROTHIAZIDE 25 MG TAB PO SCH (08:04)
[2018-05-15] MEDS: FLUTICASONE NASAL 120 SPRAYS/16 GM MDI EACHNARE SCH (08:11)
--- NOTE | 2018-05-15 08:22 | NEUSURGPN ---
Assessment/Plan: Assessment: 77 yo M POD #5 T11-L5 fusion with L1-4 TLIF and durotomy Plan: -patient tolerating HOB elevated, denies headaches -TREY removed 05/12 -PT/OT, encourage ambulation and work towards dispo -scd/starr/lovenox for dvt prophylaxis -Appreciate Hospitalist help with medical issues -please call with neuro changes -patient discussed with Dr Marquez Subjective: no complaints Objective: AxO x4 TAI x4 5/5 BUE, BLE Incision CDI Neuro Check Frequency: per routine Urinary Catheter in Place: No Catheter Insertion Date: 05/09/18 - Physician Discussed Patient with : Monica Neurosurgery Physical Exam - Vitals, I&O, Labs I and O 05/14/18 05/15/18 05/16/18 05:59 05:59 05:59 Intake Total 700 900 Output Total 3550 2950 400 Balance -2850 -2049 -400 Intake: Oral (ml) 700 900 Output: Urine (ml) 3550 2950 400 Catheter 3150 2950 400 Incontinence 400 Other: Intake Quantity Yes Yes Sufficient Output Comment Incontinence I removed the output because that was charted as a wrong person Number of Voids Catheter 1 1 Incontinence 1 1 Number of Stools Incontinence 2 Microbiology 05/09/18 08:15 Gram Stain - Final Back - Anaerobic Tube/Swab Vital Signs Temp Pulse Resp BP Pulse Ox 36.7 C 80 18 165/83 H 95 05/15/18 08:10 05/15/18 08:10 05/15/18 08:10 05/15/18 08:10 05/15/18 08:10 Laboratory Results 05/13/18 04:49 05/11/18 04:24 ICD10 Worksheet Patient Problems: Problems Problem Status Onset Stenosis of cervical spine region Acute
--- NOTE | 2018-05-15 14:39 | HOSPPROG ---
Hospitalist Progress Note Assessment/Plan: Ernst is a 77-year-old with chronic back issues is admitted by Neurosurgery for a T11 through L5 back fusion. Postoperatively he had some hypotension and respiratory failure. # Fever -chest x ray ok -ua no infectious etiology -bc no growth -no further fever # hypotension, resolved. 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 Subjective: Ernst has some c/o gas but otherwise feeling fine. Objective: Vital Signs Temp Pulse Resp BP Pulse Ox 37.0 C 95 14 127/80 H 93 05/15/18 12:00 05/15/18 12:00 05/15/18 12:00 05/15/18 12:00 05/15/18 12:00 Microbiology 05/09/18 08:15 Gram Stain - Final Back - Anaerobic Tube/Swab Laboratory Results 05/13/18 04:49 05/11/18 04:24 05/14/18 05/15/18 05/16/18 05:59 05:59 05:59 Intake Total 700 900 Output Total 3550 2950 1350 Balance -2850 -2050 -1350 - Physical Exam Constitutional: appears nourished, uncomfortable Eyes: PERRL Ears, Nose, Mouth, Throat: hearing normal Cardiovascular: regular rate and rhythym Respiratory: no respiratory distress Gastrointestinal: normoactive bowel sounds Skin: warm, other (evaluated his back incision, well approximated, non tender, no drainage, steri strips intact) Musculoskeletal: generalized weakness Neurologic: AAOx3 Psychiatric: interacting appropriately ICD10 Worksheet Patient Problems: Problems Problem Status Onset Stenosis of cervical spine region Acute
--- NOTE | 2018-05-15 15:11 | ASMTCMCOM ---
CM Note CM Note Notes: PT/OT rec inpatient rehab. Spoke with pt, Crys and dghtr Kassidy. They want to consider both [facility] inpatient rehab and [facility]. [facility] is close for family and [facility] is close to pt/'s [place] home. Referrals sent in Allscripts to both, the [facility] inpatient rehab order was input today. CM to follow. D/c plan of care: Likely an inpatient rehab Date Signed: 05/15/2018 03:10 PM Electronically Signed By:ALEJANDRA Sellers
[2018-05-15] MEDS: METHOCARBAMOL 750 MG TAB PO PRN ×2 (19:49)
[2018-05-16] MEDS: HYDROmorphONE/DILAUDID 2 MG TAB PO PRN ×3 (01:17→12:46)
[2018-05-16] MEDS: ACETAMINOPHEN 500 MG TAB PO SCH (06:49)
[2018-05-16] MEDS: GABAPENTIN 300 MG CAP PO SCH (06:49)
[2018-05-16] MEDS: POLYETHYLENE GLYCOL 3350 17 GM PKT PO SCH (07:30)
[2018-05-16] MEDS: SENNOSIDES 1 TAB PO SCH (07:31)
[2018-05-16] MEDS: SENNOSIDES/DOCUSATE SODIUM TAB PO SCH (07:31)
--- NOTE | 2018-05-16 08:54 | NEUSURGPN ---
Date of Surgery: 05/09/18 Post Op Day: 7 Assessment/Plan: 77 yo M POD #7 T11-L5 fusion with L1-4 TLIF and durotomy Plan: -patient tolerating HOB elevated, denies headaches -TREY removed 05/12 -PT/OT, encourage ambulation and work towards dispo -scd/starr/lovenox for dvt prophylaxis -Appreciate Hospitalist help with medical issues -please call with neuro changes -plan for rehab today if bed arranged and approved -patient discussed with Dr Marquez Subjective: Having back pain. Objective: Awake. Alert. PERRL. EOMI Muscle strength full at 5/5 Sensation intact Catheter Insertion Date: 05/09/18 - Physician Discussed Patient with : Monica Tobin Physical Exam - Vitals, I&O, Labs I and O 05/15/18 05/16/18 05/17/18 05:59 05:59 05:59 Intake Total 900 750 Output Total 2950 1350 Balance -2049 -600 Intake: Oral (ml) 900 750 Output: Urine (ml) 2950 1350 Catheter 2950 1350 Other: Intake Quantity Yes Yes Sufficient Output Comment Incontinence I removed the output because that was charted as a wrong person Number of Voids Bedside Commode 1 Catheter 1 1 Incontinence 1 1 Number of Stools Bedside Commode 1 Incontinence 1 Microbiology 05/11/18 00:01 Blood Culture - Final Blood 05/11/18 00:01 Blood Culture - Final Blood 05/09/18 08:15 Gram Stain - Final Back - Anaerobic Tube/Swab Vital Signs Temp Pulse Resp BP Pulse Ox 36.9 C 85 14 96/59 L 94 05/16/18 08:00 05/16/18 08:00 05/16/18 08:00 05/16/18 08:00 05/16/18 08:00 Laboratory Results 05/13/18 04:49 05/11/18 04:24 ICD10 Worksheet Patient Problems: Problems Problem Status Onset Stenosis of cervical spine region Acute
[2018-05-16] MEDS: amLODIPine BESYLATE 5 MG TAB PO SCH (09:00)
[2018-05-16] MEDS: CETIRIZINE 10 MG TAB PO SCH (09:00)
[2018-05-16] MEDS: HYDROCHLOROTHIAZIDE 25 MG TAB PO SCH (09:00)
[2018-05-16] MEDS: ENOXAPARIN 40 MG/0.4 ML SYR SC SCH (09:01)
[2018-05-16] MEDS: FAMOTIDINE 20 MG TAB PO SCH (09:01)
[2018-05-16] MEDS: FLUTICASONE NASAL 120 SPRAYS/16 GM MDI EACHNARE SCH (09:05)
--- NOTE | 2018-05-16 09:07 | HOSPPROG ---
Hospitalist Progress Note Assessment/Plan: Ernst is a 77-year-old with chronic back issues is admitted by Neurosurgery for a T11 through L5 back fusion. Postoperatively he had some hypotension and respiratory failure. # Fever -chest x ray ok -ua no infectious etiology -bc no growth -no further fever # hypotension, -bp low this morning, but asymptomatic, parameters placed on when to hold meds #htn -home meds resumed # respiratory failure -resolved, this was caused by lying flat in bed, he is improving daily # T11-L5 fusion with L1-4 TLIF and durotomy, pt with TREY drain and needs to be flat on back for 5 days total -tolerating hob up # DVT prophylaxis, patient high risk given previous history of PE w infarct -no longer has a filter -LMWH #constipation -resolved *urinary incontinence -ongoing for years/ he will f/u with Dr Jessica #plan: IP rehab evaluating, hopefully dc today Subjective: Ernst is frustrated by frequent urination and unable to get oob quickly (needs a back brace and knee brace) Objective: Vital Signs Temp Pulse Resp BP Pulse Ox 36.9 C 85 14 130/66 H 94 05/16/18 08:00 05/16/18 08:00 05/16/18 08:00 05/16/18 09:00 05/16/18 08:00 Microbiology 05/11/18 00:01 Blood Culture - Final Blood 05/11/18 00:01 Blood Culture - Final Blood 05/09/18 08:15 Gram Stain - Final Back - Anaerobic Tube/Swab Laboratory Results 05/13/18 04:49 05/11/18 04:24 05/15/18 05/16/18 05/17/18 05:59 05:59 05:59 Intake Total 900 750 Output Total 2950 1350 Balance -2049 - Physical Exam Constitutional: uncomfortable Eyes: PERRL Ears, Nose, Mouth, Throat: hearing normal Gastrointestinal: distension (slight) Skin: warm Musculoskeletal: generalized weakness Neurologic: AAOx3 Psychiatric: interacting appropriately ICD10 Worksheet Patient Problems: Problems Problem Status Onset Stenosis of cervical spine region Acute
--- NOTE | 2018-05-16 10:58 | PDIAF ---
- Diagnosis Diagnosis: Lumbar stenosis s/p fusion Code Status: Full Code - Medication Management Discharge Medications: electronically signed and located in the Home Medication List. - Orders Services needed: Registered Nurse, Certified [employer], Physical Therapy, Occupational Therapy Diet Recommendation: no restrictions on diet Diet Texture: Regular Texture Diet Additional Instructions: 1. Follow up with Dr. Anderson in 2 weeks. [phone] 2. Wear brace when out of bed. 3. Refrain from lifting more than 10 pounds and bending/twisting. 4. Avoid NSAIDs as these inhibit the fusion process. 5. Ok to shower and get incision wet. 6. Call Dr. Marquez's office with any questions/concerns. - Follow Up Care Current Providers and Referrals: GURPREET MENDOZA [Other] Franklin Anderson MD [Medical Doctor] -
--- NOTE | 2018-05-16 12:14 | ASMTLACE ---
LACE Length of stay for Answers: 4-6 days current admission Acuity / Level of Answers: Yes Care: Did the patient have an inpatient admission? Comorbidities - select Answers: Any tumor (including all that apply lymphoma or leukemia) Opioid dependence / Chronic pain Other Notes: HTN, chronic neck pain # of Emergency department Answers: 1-2 visits in the last 6 months Score: 15 Date Signed: 05/16/2018 12:13 PM Electronically Signed By:ALEJANDRA Sellers
--- NOTE | 2018-05-16 12:17 | ASMTCMCOM ---
CM Note CM Note Notes: Pt medically stable for d/c to [facility] inpatient rehab, pt first choice rehab. Orders to be obtained via [employer]. PAWEL العلي to call report. transport scheduled for 12:30 with Maame Morocho, pt/ aware of payment requirement. Date Signed: 05/16/2018 12:16 PM Electronically Signed By:ALEJANDRA Sellers
[2018-05-16 12:29] VITALS: BP 136/69
--- NOTE | 2018-05-16 13:45 | ASDISCHSUM ---
Discharge Information Plan Status:Inpatient Rehab Medically Cleared to Leave: Discharge Date:05/16/2018 12:50 PM CM D/C Disposition: ADT D/C Disposition:BDWIP Projected Discharge Date:05/17/2018 11:00 AM Transportation at D/C: Discharge Delay Reason: Follow-Up Date:05/17/2018 11:00 AM Discharge Slot: Final Diagnosis: Placement Information Referral Type:*Home Health Care Services Referral ID:[id number] Provider Name: Address 1: Phone Number: Address 2: Fax Number: City: Selection Factors: State: Referral Type:[facility] Referral ID:[id number] Provider Name:[facility] Address 1:[address] [place] [address] Phone Number: Address 2: Fax Number: [facility]:[place] Selection Factors: State:[place] Patient Contact Information Contact Name:LALONIHARIKADAISY Relationship: Address:[facility] [address] Alternate Phone: State/Zip Code:[place] [address] Email: Financial Information Financial Class:Medicare Primary Plan Desc:MEDICARE INPATIENT Primary Plan Number:[id number] Secondary Plan Desc:MEDICARE SUPPLEMENT Secondary Plan Number:[id number] Assessment Information LACE LACE Length of stay for Answers: 4-6 days current admission Acuity / Level of Answers: Yes Care: Did the patient have an inpatient admission? Comorbidities - select Answers: Any tumor (including all that apply lymphoma or leukemia) Opioid dependence / Chronic pain Other Notes: HTN, chronic neck pain # of Emergency department Answers: 1-2 visits in the last 6 months Score: 15 Date Signed: 05/16/2018 12:13 PM Electronically Signed By:ALEJANDRA Sellers [facility] Progress Note CM Note CM Note Notes: 05/10/2018 Case Management Note Discussed pt during rounds today. Son present. Pt s/p T11-L5 fusion. Pt on bedrest until Saturday. Therapy evals to happen at that time. Osmani Garcia [phone] visited pt and family today at request of surgeon. Faxed referral. Case Management d/c poc: to be determined. Case Management to follow. Date Signed: 05/10/2018 03:28 PM Electronically Signed By:Steph Harris RN [facility] CM Progress Note CM Note CM Note Notes: Pt is still on bed rest until tomorrow. PT/OT to eval when appropriate. Pt was pre-arranged with Osmani GARDINER. Pt and dghtr have been bedside. CM to follow, d/c plan is TBD. Date Signed: 05/13/2018 02:46 PM Electronically Signed By:ALEJANDRA Sellers [facility] CM Progress Note CM Note CM Note Notes: PT/OT rec inpatient rehab. Spoke with pt, Crys and dghtr Kassidy. They want to consider both [facility] inpatient rehab and [facility]. [facility] is close for family and [facility] is close to pt/'s [place] home. Referrals sent in Allscripts to both, the [facility] inpatient rehab order was input today. CM to follow. D/c plan of care: Likely an inpatient rehab Date Signed: 05/15/2018 03:10 PM Electronically Signed By:ALEJANDRA Sellers [facility] CM Progress Note CM Note CM Note Notes: Pt medically stable for d/c to [facility] inpatient rehab, pt first choice rehab. Orders to be obtained via [employer]. PAWEL العلي to call report. WC transport scheduled for 12:30 with Maame Morocho, pt/ aware of payment requirement. Date Signed: 05/16/2018 12:16 PM Electronically Signed By:ALEJANDRA Sellers Intervention Information
--- NOTE | 2018-05-22 14:51 | GDS ---
[f rep st] DISCHARGE SUMMARY ADMISSION DIAGNOSES: 1. Severe multilevel lumbar degenerative disk disease, scoliosis, and critical spinal stenosis with progressive loss of neurologic function. 2. Failed back syndrome with history of 4 prior surgeries. POSTOPERATIVE DIAGNOSES: 1. T11 through L5 fusion with L1-2, L2-3 and L3-4 transforaminal lumbar interbody fusions. 2. Intraoperative spinal fluid leak. Mr. Mtz is a pleasant 77-year-old male who presented to our clinic with intractable low back j carlos n and bilateral lower extremity radicular neurogenic claudication symptoms as well as a 20 year histo ry of bowel and bladder dysfunction secondary to multilevel severe degenerative scoliosis, spondyloli sthesis and critical spinal stenosis. He has undergone multiple previous spinal surgeries in the [facility]. He failed to improve with conservative measures and felt to be a candidate for surgical intervent ion. On 05/09/2018, he was taken to the operating room where he underwent redo bilateral L4-5 and L3 -4 posterior hemilaminectomies and diskectomies with foraminotomies and far-lateral transfacet decomp ression at L1-2 and L2-3, followed by an T11 through L5 posterior fusion with pedicle screws and L1-2 , L2-3 and L3-4 transfemoral lumbar interbody fusions. Intraoperative complications included durotom ies. Postoperatively, the patient was transferred to the ICU. His pain was controlled with oral and IV pain medications and muscle relaxers. His TREY drain was in place postoperatively. A hospitalist consult was obtained on the immediate postoperative setting to assist with the patient's medical armin gement. X-rays of the lumbar spine were performed on 05/15/2018, demonstrating satisfactory position of his hardware and intervertebral spacers. Given the patient's intraoperative durotomies, the elma ent was kept flat for 5 days postoperatively. A lumbar drain was not able to be placed secondary to the patient's anatomy. Ultimately, after 5 days lying flat, the patient was sat up gradually and his activity was advanced and monitored for positional headaches and any drainage from his incision of w hich there was neither. He was then mobilized and followed by Physical therapy and physiotherapy practice manager apy who advanced his activity as tolerated. Ultimately, he was transferred to the floor and was cont inued to be followed there by hospitalist team. The was removed on February 11. Ultimate ly, the patient was deemed stable for discharge to a rehab facility. He was fitted with an LSO brace and continued to make good progress. On the day of his transfer to [facility] rehab, intraoperative wound cultures grew out P acnes. The infectious disease team was contacted and consulted regarding t his finding, and they recommended he be placed on doxycycline. The patient was transferred to rehab for continued care thereafter and the ID team agreed to see the patient 1 week from the day of discha rge from the hospital. Mr. Mtz was provided discharge instructions regarding lumbar fusion and encouraged to contact ou r office with any questions or concerns prior to his postop appointment in approximately 10-14 days. Of note, the patient did note improvement of his preoperative back and bilateral leg pain in the [facility] ediate postoperative setting. /[id number]/MODL
== END 2018-05-16 12:50 | DRG 453 ==
LOC: F3N 05-09 05:29 → F2N 05-09 10:28 → F3N 05-10 18:03 → UNDODISIN 05-16 12:32
PROVIDERS: ADMIT Neurological Surgery; ATTEND Neurological Surgery
DX: M41.86 Other forms of scoliosis, lumbar region (principal); J96.01 Acute respiratory failure with hypoxia; G96.0 Cerebrospinal fluid leak; J98.11 Atelectasis; I95.81 Postprocedural hypotension; R32 Unspecified urinary incontinence; K59.00 Constipation, unspecified; M48.062 Spinal stenosis, lumbar region with neurogenic claudication; I10 Essential (primary) hypertension; G47.30 Sleep apnea, unspecified; Z85.46 Personal history of malignant neoplasm of prostate; Z98.1 Arthrodesis status; Z96.652 Presence of left artificial knee joint
CPT/HCPCS: 97116-GP; 97162-GP; 97166-GO; 97530-GO; 97530-GP; 97535-GO; C1713; J0171; J0690; J1170; J1265; J1650; J2250; J2274; J2370; J2405; J2704; J3010; P9041

== ENCOUNTER 2018-05-16 12:14 | Inpatient (IN) | payer OTHER ==
[2018-05-16] MEDS: HYDROmorphONE/DILAUDID 2 MG TAB PO PRN ×2 (14:59→20:37)
[2018-05-16] MEDS: GABAPENTIN 300 MG CAP PO SCH ×2 (15:00→21:45)
[2018-05-16] MEDS: DOXYCYCLINE HYCLATE 100 MG CAP/TAB PO SCH ×2 (15:50→21:45)
--- NOTE | 2018-05-16 15:57 | GHP ---
[f rep st] HISTORY AND PHYSICAL DATE OF ADMISSION: 05/16/2018 TIME OF EVALUATION: 1405 hours REFERRING FACILITY: [facility] REFERRING PHYSICIAN: Franklin Anderson MD IMPAIRMENT GROUP: [id number]. DATE OF ONSET: 05/09/2018 CONSULTING PHYSICIANS: He had a consultation with the hospitalist service, Dr. Early. REHABILITATION DIAGNOSIS: Debility status post lumbar spine surgery. ETIOLOGIC DIAGNOSIS: Other orthopedic. DATE OF SURGERY: 05/09/2018 HISTORY OF PRESENT ILLNESS: This patient has had 4 prior back surgeries and was developing weakness in the legs, as well as pain. He had assessment by Dr. Anderson with [facility] and was diagnosed with failed back surgery, and so went in for a revision surgery. He had T11 through L5 fusion, with L1 to L4 total lumbar interbody fusion. Postoperative complications included hypotension, fever with negative evaluation, constipation, and respiratory failure. Evaluation for fever included a chest x-ray, which ruled out a pneumonia; a normal urinalysis; and blood cultures, which were negative. Hospital stay was prolonged due to durotomy. He needed to be flat on his back for 5 days, total. He had constipation and then had multiple bowel movements, and laxatives have been held for several days. He had urinary incontinence, which is chronic. He was medically stable and ready for inpatient rehabilitation. LABORATORY STUDIES IN THE HOSPITAL: Most recent CBC showed hemoglobin 10 and hematocrit of 30.7. This was on 05/13/2018. These are decreased from 2 days before, when hematocrit was 32.2. He had a low platelet count, and on 2008, platelets had improved to 141. Serum chemistry on 05/11/2018, was overall within normal limits. He had a low anion gap of 2. He had a slightly elevated glucose and a low calcium. The urinalysis showed 2+ blood, 5-10 red blood cells, and 3-5 white blood cells. Lumbar x-ray showed anatomical positioning without complications to his surgery. PRECAUTIONS: He has fall risk and he has orthopedic spinal precautions for the lumbar spine. ACTIVE COMORBIDITIES: He has no active tier 1, tier 2, or tier 3 comorbidities. PAST MEDICAL HISTORY: 1. Spinal degenerative disease. 2. Hypertension. 3. Prostate cancer. PAST SURGICAL HISTORY: He has had multiple lumbar spine surgeries and prior cervical spine surgery. He had a left knee replacement. He had rotator cuff surgery. He had a radical prostatectomy. PREHOSPITAL MEDICATIONS: 1. Amlodipine 5 mg p.o. daily. 2. Aspirin 81 mg p.o. daily. 3. Celecoxib 100 mg p.o. twice daily. 4. Chlorothiazide 25 mg p.o. daily. 5. Tramadol 50 mg q.8 hours p.r.n. ADMISSION MEDICATIONS: 1. Amlodipine 5 mg p.o. daily. 2. Hydrochlorothiazide 25 mg p.o. daily. 3. Hydromorphone 2-4 mg p.o. q.4 hours p.r.n. 4. Methocarbamol 750 mg p.o. 4 times daily p.r.n. 5. Multivitamin daily. ALLERGIES: There are no known drug allergies. PSYCHOSOCIAL HISTORY: He is a retired staff mechanical engineer. He lives with his . There are several platform steps to enter. He has the support of local children as well. He is a nonsmoker. He lives in [place]. FAMILY HISTORY: Noncontributory. REVIEW OF SYSTEMS: He complains of pain which feels to him like nerve pain in his medial left proximal thigh. It radiates distally and so feels it in his left testicle. He has soreness over the back. His sleep is normally interrupted by need to urinate, but he generally attains sleep again and feels rested in the morning. He has reduced sensation in the legs, especially on the lateral right leg. He reports he has been wearing a knee brace because of a fall he had, which caused hyperflexion of the left knee, on which he had a total knee replacement. He reports that the full-length brace exacerbates his left medial thigh and groin pain. He also has a shorter brace which he has been using. He felt that his right knee gave out as he was descending stairs causing the left knee injury. He feels that his strength is adequate for standing and walking. He denies cough or dyspnea, fever or chills. He denies nausea or vomiting. He has had diarrhea. He has had fecal incontinence. He has urinary incontinence, but reports he is generally continent at night and gets up 2 times to urinate. He has more difficulty with continence during the day. Otherwise, a 10-point review of systems is negative. PHYSICAL EXAMINATION: VITAL SIGNS: Vitals are not yet available chart. His weight is 96.4 kg, for a body mass index of 25.9. GENERAL: This is a well- nourished, well-developed man who appears his chronologic age, sitting in a chair in [id number] discomfort because of pain in the left medial proximal thigh. Cooperative. HEENT: Extraocular movements intact. Pupils are equal, round, reactive to light. Mucous are moist, dentition is in good condition. NECK: Supple. HEART: There is regular rate and rhythm with no murmurs, rubs or gallops. LUNGS: Clear to auscultation bilaterally. ABDOMEN : Soft, nontender, nondistended with normoactive bowel sounds. No hepatosplenomegaly. EXTREMITIES: There is no cyanosis, clubbing, or edema. Radial and dorsalis pedis pulses are 2+ bilaterally. NEUROLOGIC: He is alert and oriented x3. Cranial nerves 2-12 are grossly intact. There is no focal weakness and he has adequate strength to arise from seated and to stand at a front wheeled walker. Sensation is normal in the upper and lower extremities. He has reduced sensation to light touch on the lateral aspect of right leg. SKIN: Per report, dressing was most recently changed today on incisions. Dressing was not removed. Otherwise, there is no skin breakdown and skin is warm and dry. CURRENT LEVEL OF FUNCTION PER THE PRE-ADMISSION: He was on a regular diet and did not need help for eating. Dressing the upper body required maximal assistance and lower body required total assistance. He was incontinent of bladder. Bed mobility required moderate assist with voice cues for logroll. Transfers were done with minimal assist, too, with a knee brace locked into extension. He required voice cues or left foot and and placement. He used a front-wheeled walker. Seated balance required standby assist to contact guard assist. Standing balance required minimal assist of 2. Endurance was fair. He was able to ambulate 8 steps with minimal assist to and from the walker to the toilet. Subsequently was able to ambulate 50 feet. He had a variable alban, mild swaying and variable step length. He needed voice cues to keep feet within the base of support of the front-wheeled walker. Regarding cognition, he was noted to have periods of confusion and to have impulsivity. He was considered a fall risk and had risk for left knee buckling. IMPRESSION: This is a 77-year-old man with a history of multiple back surgeries and worsening symptoms of weakness and sensory loss in the legs, who had a revision surgery on 05/09/2018. He had a T11 to L5 fusion with an L1 to L4 transforaminal lumbar interbody fusion and durotomy. He had medical issues, including hypotension, fever, and respiratory failure. He was ultimately stabilized and appropriate for rehabilitation. He has considerable pain, primarily in an L1-L2 distribution on the left leg. He has been on gabapentin 900 mg three times daily since 05/09/2018, and per the neurosurgical physician transportation assistant, this is protocol for postoperative pain and they would be tapering or discontinuing gabapentin. It was discontinued upon his hospital discharge. Pain medicines also include hydromorphone. Yesterday, he used a total of 8 mg, 2 prior days he used 16 mg. Sixteen milligrams is equivalent to about 50-60 mg of morphine per day. He has other complications from prior lumbar surgeries, total prostatectomy, including neurogenic bladder and neurogenic bowel. Additionally, he had a recent left knee replacement and had a fall prior to his surgery due to right knee buckling. Other than pain, he appears to have come through his surgery well and is appropriate for inpatient rehabilitation. His goal is to complete a rehabilitation stay and then return home with his family and supportive services. For a safe discharge, he will need to have delirium fully resolved. He will need to be able to safely perform activities of daily living and functional tasks, maintaining spinal precautions. He will need to be modified independent for ADLs and functional activities and ambulating with the least restrictive device. He will have therapy with Physical Therapy , Occupational Therapy , and Speech and Language Pathology, 60-90 minutes per day for physical therapy and occupational therapy, and 30-60 minutes for speech and language pathology on 5- 7 days of the week. His expected duration of stay is 10-14 days. It is anticipated that upon discharge, he will benefit from health services, including occupational therapy and physical therapy. PLAN: 1. Debility. He is status post lumbar fusion on 05/09/2018. He had T11 through L5 fusion with L1 to L4 TLIF. PT and OT to optimize mobility and activities of daily living. 2. Hospital delirium. Evaluation and treatment per HAIR MACHINE OPERATOR. Getting adequate sleep is important. Given his history of sleeping with several interruptions to urinate, I hesitate to prescribe a hypnotic, but if he continues to have poor sleep, this would be an option. Alternately, initiating long-acting opiate would be an option as well. On review of labs from the hospital, there appear to be no infectious or metabolic complications that could be contributing to delirium. 3. Neurogenic bowel and neurogenic bladder. I have ordered the neurogenic bowel and bladder protocols. He will have a suppository every morning at 0600 in an attempt to have him have a bowel movement and reduce the chance of incontinence during the day. Given that he is on opiate medications, we will resume stimulant laxative with senna 1 tablet every morning. Would have a low threshold to increase this if he has very hard stool or inadequate response to the bisacodyl suppository. 4. Pain management. This is a problem. I am not sure it can be optimized before he fully heals from his surgery. Will continue gabapentin 900 mg p.o. 3 times daily, and will continue hydromorphone 2-4 mg q.4 hours p.r.n. Will have a low threshold to initiate long-acting morphine. It would be appropriate to give him 15 mg twice daily or 3 times daily given the amount of hydromorphone he has been using. 5. Hypertension. Appears to be well controlled. Will continue amlodipine as well as hydrochlorothiazide.. He had quite variable blood pressure over the last few days. I will be sure to check orthostatics. 6. Anemia with hemoglobin and hematocrit of 10 and 30.7 on 05/13/2018. Will check CBC. 7. Possible wound or spinal infection. He has a positive culture from his surgery for a Gram-positive rakesh, likely P acnes. Neurosurgery discussed it with the infectious disease farm consultant and they advise doxycycline 100 mg 3 times daily. He is to follow up with the [facility] in the next week. I will add ESR and CRP to the labs to evaluate for ongoing inflammation. 8. Followup. He will see Infectious Disease in the next week. He will see neurosurgeon, Dr. Anderson, in approximately 2 weeks. 9. Precautions and prophylaxis. He will wear a lumbar corset when he is out of bed. This can be donned and doffed at the edge of the bed and he can take it off to shower. He will work with Physical Therapy regarding use of the knee brace and whether it is helpful for the left knee. He is at elevated risk for DVT and will be continued on enoxaparin 40 mg daily until his mobility considerably improves. /[id number]/MODL MTDD
--- NOTE | 2018-05-16 16:20 | PDOREHIP ---
Admission [facility] - Admission - 3 Day Assessment Period Admission Date/Day 1: 05/16/18 Day 2: 05/17/18 Day 3: 05/18/18 - Active Diagnoses Comorbidities and Co-existing Conditions at Admission: 61543. None of the Above - Skin Conditions Unhealed Pressure Ulcer (1 or more/Stage 1 or >)-Admission: 0. No # Stage 1 Pressure Ulcers-Admission: 0 # Stage 2 Pressure Ulcers-Admission: 0 # Stage 3 Pressure Ulcers-Admission: 0 # Stage 4 Pressure Ulcers-Admission: 0 # Unstageable Pressure Ulcers (Non-remove Dress)-Admission: 0 # Unstageable Pressure Ulcers (Slough/Eschar)-Admission: 0 # Unstageable Pressure Ulcers (Deep Tissue Injury)-Admission: 0
[2018-05-16] MEDS: ACETAMINOPHEN 500 MG TAB PO SCH (21:45)
[2018-05-17] MEDS: HYDROmorphONE/DILAUDID 2 MG TAB PO PRN ×2 (03:38→09:09)
[2018-05-17] MEDS: ACETAMINOPHEN 500 MG TAB PO SCH ×3 (05:45→21:05)
[2018-05-17 07:57] LABS: PLATELET COUNT 516 10^3/uL (150-400)
[2018-05-17] MEDS: amLODIPine BESYLATE 5 MG TAB PO SCH (09:34)
[2018-05-17] MEDS: GABAPENTIN 300 MG CAP PO SCH ×3 (09:35→21:06)
[2018-05-17] MEDS: ENOXAPARIN 40 MG/0.4 ML SYR SC SCH (09:35)
[2018-05-17] MEDS: MULTIVITAMINS 1 EACH TAB PO SCH (09:36)
[2018-05-17] MEDS: SENNOSIDES 1 TAB PO SCH (09:36)
[2018-05-17] MEDS: HYDROCHLOROTHIAZIDE 25 MG TAB PO SCH (09:36)
[2018-05-17] MEDS: DOXYCYCLINE HYCLATE 100 MG CAP/TAB PO SCH ×2 (09:39→21:06)
--- NOTE | 2018-05-17 10:50 | SOAPPROG ---
SOAP Progress Note Assessment/Plan: Assessment: Debility. Status post T11-L5 lumbar fusion, L1-L4 TLIF 05/09/2018. He is also had previous multiple lumbar spine surgeries resulting in intermittent back and hip pain. Has what sounds like residual left L1/L2 radiculopathy based on his current symptoms which were present before and possibly aggravated by most recent lumbar spine procedure. He does not report increased left or right lower extremity weakness following most recent spine surgery. Physical and occupational therapy for lower extremity strengthening, gait training and upper extremity strengthening/ADL training respectively. Physical and occupational therapy may work together to address gait and balance issues as deemed necessary. Improve mobility and ADL ability. Neurogenic bowel and bladder. Neurogenic bowel and bladder protocols ordered. He will have a suppository every morning at 6:00 a.m. In an attempted to have a morning bowel movement and reduce the chance of incontinence during the day. Given that he is on opioid medications, resume stimulant laxative with senna 1 tablet every morning. Low threshold to increase this if he has very hard stool or inadequate response to the this a caudal suppository. Pain management continue gabapentin 900 mg p.o. Three times daily. If he complains of significant lower extremity neuropathic pain than can increase this up to a total of 3600 mg daily. Continue hydromorphone 2-4 mg q.4 hours p.r.n.. Will have a low threshold to initiate long-acting morphine. He would be appropriate to give him 15 mg twice daily or 3 times daily depending on usage of hydromorphone. Hypertension. Appears to be well controlled. Blood pressure from 05/17 124/70. Continue amlodipine as well as hydrochlorothiazide. He was noted to have variable blood pressure over the last few days prior to admission to the rehab unit. Nursing to check for orthostatics. Anemia. CBC from 05/17 shows hemoglobin 11.5 and hematocrit 36.1 which is improving from previous H and H on 05/13 which was 10 and 30.7 respectively. Will continue to monitor for signs of anemia such as tachycardia, shortness of breath and orthostasis. Wound care-he had a positive culture for from his surgery for gram-positive rakesh. Likely P Acnes. Neurosurgery discussed with infectious disease and they advised doxycycline 100 mg 3 times daily. He is to follow up with the [facility] for Infectious Diseases in the next week. ESR and CRP ordered today, . [id number] will see infectious disease in the next week. Will discuss with our registered nurse hh case manager here on the unit to see if infectious Disease will come here or if he needs to be sent out for this appointment. Follow up with his neurosurgeon Dr. Vidales in approximately 2 weeks. Precautions and prophylaxis. He will wear a lumbar corset when he is out of bed. This can be donned and doffed at the edge of the bed and he can take it off to shower. He will work with physical therapy regarding use of the knee brace and whether it is helpful for the left knee. He is at elevated risk for DVT and will be continued on enoxaparin 40 mg daily until he is ambulating at least 150 ft daily. Plan: 05/17/18 10:50 Subjective: HE HAS CONTINUED COMPLAINTS OF BURNING DYSESTHETIC TYPE PAIN IN THE ANTEROMEDIAL ASPECT OF THE LEFT THIGH RADIATING INTO THE GROIN AND LEFT TESTICLE ALONG WITH SIMILAR SYMPTOMS IN THE PROXIMAL ANTERIOR LATERAL ASPECT OF THE LEFT THIGH. HE NOTES THE SYMPTOMS WERE PRESENT PRIOR TO THIS MOST RECENT SPINE SURGERY AND PERHAPS AN HOUR LITTLE BIT WORSE. HE REPORTS IMPAIRED SENSATION IN THE PERINEAL REGION WHICH IS ALSO SECONDARY TO PREVIOUS spine surgery. He also reports bladder incontinence secondary to prostate resection secondary to prostate cancer 20 years ago. He denies significant low back pain or muscle spasms. He does not report new onset lower extremity weakness. Objective: Vital Signs Temp Pulse Resp BP Pulse Ox 36.7 C 101 H 14 124/70 H 92 05/17/18 05:48 05/17/18 08:00 05/17/18 05:48 05/17/18 08:00 05/17/18 08:00 Laboratory Results 05/17/18 05:50 05/17/18 05:50 05/16/18 05/17/18 05/18/18 05:59 05:59 05:59 Intake Total 750 Output Total 50 Balance 700 Physical Exam - Physical Exam General Appearance: WD/WN, alert, no apparent distress Respiratory: lungs clear, normal breath sounds Cardiac/Chest: No gallop, No diastolic murmur Abdomen: normal bowel sounds, non-tender, soft, other (No suprapubic tenderness) Back: Other (Right lower thoracic and lumbar paraspinals with increased tone, nontender to palpation.) Skin: other (Lumbar incision dressing removed. No carlita incisional erythema, induration or drainage.) Extremities: No swelling, No Amy's sign Neuro/Psych: alert, normal mood/affect, oriented x 3, motor weakness (Has at least 4/5 right and left hip flexors, quadriceps, hamstrings, ankle dorsiflexors and plantar flexors.) ICD10 Worksheet Patient Problems: Problems Problem Status Onset Stenosis of cervical spine region Acute
[2018-05-17] MEDS: BISACODYL 10 MG SUPP PR SCH (14:13)
[2018-05-18] MEDS: HYDROmorphONE/DILAUDID 2 MG TAB PO PRN ×3 (03:36→18:02)
[2018-05-18] MEDS: ACETAMINOPHEN 500 MG TAB PO SCH ×3 (06:08→21:43)
[2018-05-18] MEDS: GABAPENTIN 300 MG CAP PO SCH ×3 (08:28→21:43)
[2018-05-18] MEDS: amLODIPine BESYLATE 5 MG TAB PO SCH (08:29)
[2018-05-18] MEDS: HYDROCHLOROTHIAZIDE 25 MG TAB PO SCH (08:30)
[2018-05-18] MEDS: MULTIVITAMINS 1 EACH TAB PO SCH (08:30)
[2018-05-18] MEDS: DOXYCYCLINE HYCLATE 100 MG CAP/TAB PO SCH ×2 (08:30→21:43)
[2018-05-18] MEDS: SENNOSIDES 1 TAB PO SCH (08:32)
--- NOTE | 2018-05-18 09:49 | SOAPPROG ---
SOAP Progress Note Assessment/Plan: Assessment: Debility. Status post T11-L5 lumbar fusion, L1-L4 TLIF 05/09/2018. He is also had previous multiple lumbar spine surgeries resulting in intermittent back and hip pain. Has what sounds like residual left L1/L2 radiculopathy based on his current symptoms which were present before and possibly aggravated by most recent lumbar spine procedure. He does not report increased left or right lower extremity weakness following most recent spine surgery. Physical and occupational therapy for lower extremity strengthening, gait training and upper extremity strengthening/ADL training respectively. Physical and occupational therapy may work together to address gait and balance issues as deemed necessary. Improve mobility and ADL ability. HE IS CURRENTLY AMBULATING GREATER THAN 150 FT AND WAS ABLE TO GO UP AND DOWN AT LEAST 3 STAIRS YESTERDAY DURING THERAPY WITHOUT MUCH DIFFICULTY REPORTED PER PATIENT. Neurogenic bowel and bladder. Neurogenic bowel and bladder protocols ordered. He will have a suppository every morning at 6:00 a.m. In an attempt to have a morning bowel movement and reduce the chance of incontinence during the day. Given that he is on opioid medications, resume stimulant laxative with senna 1 tablet every morning. Low threshold to increase this if he has very hard stool or inadequate response to the this a caudal suppository. Pain management continue gabapentin 900 mg p.o. Three times daily. Continue hydromorphone 2-4 mg q.4 hours p.r.n. DISCUSSED PAIN MANAGEMENT STRATEGY WITH PATIENT AND HIS NURSE, SHAYNE. WILL ADD TRAMADOL 50 MG Q 6 HR P.R.N. WHICH HE CAN TAKE 1 HR PRIOR TO PHYSICAL THERAPY SESSION OR FOLLOWING PHYSICAL THERAPY SESSION SINCE HE REPORTS INCREASED PAIN FOLLOWING EXERCISE. HAVE ENCOURAGED TAPERING OFF OF THE HYDROMORPHONE AND IF THIS IS NOT POSSIBLE THEN CERTAINLY WOULD ADVOCATE THE 2 MG DOSAGE OPPOSED TO THE 4 MG DOSAGE. WILL ALSO ADD LIDODERM PATCH TO LOW BACK REGION. REVIEWED WITH PATIENT. Will have a low threshold to initiate long-acting morphine. He would be appropriate to give him 15 mg twice daily or 3 times daily depending on usage of hydromorphone. Hypertension. Appears to be well controlled. Blood pressure 05/18 128/80. Continue amlodipine as well as hydrochlorothiazide. He was noted to have variable blood pressure over the last few days prior to admission to the rehab unit. Nursing to check for orthostatics. Anemia. CBC from 05/17 shows hemoglobin 11.5 and hematocrit 36.1 which is improving from previous H and H on 05/13 which was 10 and 30.7 respectively. Will continue to monitor for signs of anemia such as tachycardia, shortness of breath and orthostasis. Wound care-he had a positive culture for from his surgery for gram-positive rakesh. Likely P Acnes. Neurosurgery discussed with infectious disease and they advised doxycycline 100 mg 3 times daily. He is to follow up with the [facility] for Infectious Diseases in the next week. ESR FROM 05/18 53. CRP FROM 60. WILL SEND THESE RESULTS OVER TO INFECTIOUS DISEASE ON 05/19. WILL ASK OUR NURSE FUND DEVELOPMENT MANAGER, APRIL AZEVEDO, IF INFECTIOUS DISEASE WILL COME HERE TO SEE PATIENT IN FOLLOWUP OR IF WE HAVE TO SEND HIM OUT. [id number] will see infectious disease in the next week. Will discuss with our case resolution specialist here on the unit to see if infectious Disease will come here or if he needs to be sent out for this appointment. Follow up with his neurosurgeon Dr. Vidales in approximately 2 weeks. Precautions and prophylaxis. He will wear a lumbar corset when he is out of bed. This can be donned and doffed at the edge of the bed and he can take it off to shower. He will work with physical therapy regarding use of the knee brace and whether it is helpful for the left knee. He is at elevated risk for DVT and will be continued on enoxaparin 40 mg daily until he is ambulating at least 150 ft daily. 05/18/18 09:44 Subjective: He reports he is having right-sided back pain that radiates down to the right iliac crest. He reports pain in the left anterior lateral thigh and groin unchanged. He does note some increased pain in the left inguinal region which seems to resolve when he urinates. He denies veronica dysuria or flank pain. He reports he poor pain management in that he had increased pain yesterday following physical therapy. Objective: Vital Signs Temp Pulse Resp BP Pulse Ox 37.0 C 95 14 128/80 H 95 05/18/18 05:55 05/18/18 05:55 05/18/18 05:55 05/18/18 05:55 05/18/18 05:55 Laboratory Results 05/18/18 06:15 05/17/18 05:50 05/17/18 05/18/18 05/19/18 05:59 05:59 05:59 Intake Total 750 700 Output Total 50 Balance 700 700 Physical Exam - Physical Exam General Appearance: WD/WN, alert, no apparent distress Respiratory: lungs clear, normal breath sounds Abdomen: non-tender, soft, other Skin: other (Lumbar incision bandaged, healing well, no drainage. No erythema. No induration.) Neuro/Psych: alert, oriented x 3, motor weakness (4+/5 right and left upper and lower extremities.) ICD10 Worksheet Patient Problems: Problems Problem Status Onset Stenosis of cervical spine region Acute
[2018-05-18] MEDS: BISACODYL 10 MG SUPP PR SCH (09:57)
[2018-05-18] MEDS: ENOXAPARIN 40 MG/0.4 ML SYR SC SCH (09:58)
[2018-05-18] MEDS: LIDOCAINE 4%/MENTHOL 1% PATCH TD SCH (10:04)
--- NOTE | 2018-05-18 15:10 | PDCONSULT ---
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 With extensive hardware in place, will likely continue oral antimicrobial therapy as suppression indefinitely. 1. Probable deep surgical space infection with 2. Status post extensive spinal surgery on 05/09/2018 3. Status post multiple vertebral surgeries Plan: 1. Start ceftriaxone 2gm IV daily 2. Continue doxycycline 100mg PO BID 3. Check BMP, CBC with differential, CRP, and ESR weekly starting 05/26 4. ID will follow and update recommendations based upon final identification of the recovered bacteria Wilson Baker MD Infectious Diseases Chief Complaint: Positive culture from spinal surgery Requesting Provider: Dr. Rey Reason for Referral: Consultation was requested by Dr. Rey regarding antimicrobial management. HPI: 77-year-old man who was admitted hospital on 05/09/2018 to undergo the below procedures due to ongoing neurologic symptoms and failure of previous spinal surgeries. He is currently feeling reasonably well but has not found an adequate pain control regimen yet. On 05/09/2018 he underwent a of bilateral L4/L5 and L3/L4 posterior hemilaminectomy and diskectomies, trans facet decompression at L1/L2 and L2/L3. He also underwent T11 through L5 posterior segmental pedicle screw fixation and posterolateral fusion with local autograft and bone morphogenic protein placement. He also underwent L1/L2, L2/L3, and L3/L4 posterior transforaminal lumbar interbody fusion using local autograft an bone morphogenic protein. He also underwent repair of a CSF leak. This surgery included exploration of previous spinal fusions at L5/S1. The operative procedure was noted to be extensive and prolonged due to extensive scar tissue from multiple prior spinal surgeries. Verbal report from the surgical team was that there was some devitalized tissue/white tissue that was sent for culture. The culture was sent was growing gram-positive rods 1st noted approximately 7 days after the procedure. Past Medical History: Hypertension Past Surgical History: See HPI for spinal surgery from 05/09/2018; multiple previous back surgery dating back years Social History: Does not use tobacco products; Does not consume marijuana products; Drinks alcohol socially; Does not use any other drugs currently or in the past Family History: No family members with recurrent infections Allergies: NKDA Medications: Reviewed in medical record and confirmed with patient. ROS: 10 organ systems reviewed; pertinent positives and negatives listed in the HPI, all other organ systems negative. Physical Exam: VS: Reviewed Gen: No acute distress; Breathing comfortably without supplemental oxygen; Able to speak in complete sentences Eyes: No conjunctival injection; No scleral icterus HENT: No gross deformities Neck: No limitation in range of motion Pulm: Breath sounds clear to the bases bilaterally; No wheeze, rhonchi, or rales CV: Normal S1 and S2; Regular rate and rhythm; No murmurs, rubs, or gallops; No lower extremity edema Abd: Not distended; Normo-active bowel sounds; Soft; Non-tender Skin: A full skin exam including exposed bilateral upper extremities, bilateral lower extremities to the knees, face, neck, abdomen, chest, and back performed; Skin intact, warm, with no rash MSK: Joints without erythema or edema; No gross limitation in range of motion Ext: No clubbing or cyanosis Neuro: Awake and alert Psych: Normal mood and affect Labs/Imaging: All microbiology testing (culture and non-culture) reviewed in the medical record. Personally reviewed and interpreted the images of the following radiographs: Spinal x-ray showing extensive hardware fixation of multi level vertebrae. Medications Generic Name Dose Route Start Last Admin Trade Name Freq PRN Reason Stop Dose Admin Doxycycline Hyclate 100 mg 05/17/18 21:00 05/18/18 08:30 Doxycycline Hyclate PO 06/15/18 15:59 100 mg BID [facility] Protocol Microbiology 05/11/18 00:01 Blood Blood Culture - Final 05/11/18 00:01 Blood Blood Culture - Final 05/09/18 08:15 Back - Anaerobic Tube/Swab Mycobacterial Smear (NEELAM) - Final 05/09/18 08:15 Back - Anaerobic Tube/Swab Mycobacterial Culture - Final 05/09/18 08:15 Back - Anaerobic Tube/Swab Gram Stain - Final 05/09/18 08:15 Back - Anaerobic Tube/Swab Fungal Culture - Preliminary 05/09/18 08:15 Back - Anaerobic Tube/Swab Anaerobic Culture - Preliminary Gram Positive P[place]ito Selected Entries 05/17/18 05/18/18 18:42 05:55 Temperature (C) 37.2 C 37.0 C Laboratory Tests 05/17/18 05/17/18 05/18/18 05:50 05:50 06:15 WBC 9.16 Hgb 11.5 L Plt Count 516 H ESR 53 H Creatinine 0.7 C-Reactive Protein 05/18/18 06:15 WBC Hgb Plt Count ESR Creatinine C-Reactive Protein 60.0 H Ongoing monitoring for antimicrobial toxicity with: CBC, BMP.
[2018-05-18] MEDS: PATCH REMOVAL 1 EA PATCH TD SCH (19:39)
[2018-05-18] MEDS: traMADol 50 MG TAB PO PRN (21:43)
[2018-05-19] MEDS: traMADol 50 MG TAB PO PRN (03:43)
[2018-05-19] MEDS: HYDROmorphONE/DILAUDID 2 MG TAB PO PRN ×4 (04:32→21:50)
[2018-05-19] MEDS: ACETAMINOPHEN 500 MG TAB PO SCH ×3 (04:33→21:49)
[2018-05-19] MEDS: METHOCARBAMOL 750 MG TAB PO PRN (06:04)
[2018-05-19] MEDS: MULTIVITAMINS 1 EACH TAB PO SCH (08:41)
[2018-05-19] MEDS: amLODIPine BESYLATE 5 MG TAB PO SCH (08:41)
[2018-05-19] MEDS: HYDROCHLOROTHIAZIDE 25 MG TAB PO SCH (08:41)
[2018-05-19] MEDS: DOXYCYCLINE HYCLATE 100 MG CAP/TAB PO SCH ×2 (08:41→21:49)
[2018-05-19] MEDS: GABAPENTIN 300 MG CAP PO SCH ×3 (08:42→21:49)
[2018-05-19] MEDS: LIDOCAINE 4%/MENTHOL 1% PATCH TD SCH (08:42)
[2018-05-19] MEDS: SENNOSIDES 1 TAB PO SCH ×2 (08:44→17:52)
[2018-05-19] MEDS: ENOXAPARIN 40 MG/0.4 ML SYR SC SCH (09:05)
--- NOTE | 2018-05-19 09:20 | SOAPPROG ---
SOAP Progress Note Assessment/Plan: Assessment: Debility. Status post T11-L5 lumbar fusion, L1-L4 TLIF 05/09/2018. He is also had previous multiple lumbar spine surgeries resulting in intermittent back and hip pain. Has what sounds like residual left L1/L2 radiculopathy based on his current symptoms which were present before and possibly aggravated by most recent lumbar spine procedure. He does not report increased left or right lower extremity weakness following most recent spine surgery. Physical and occupational therapy for lower extremity strengthening, gait training and upper extremity strengthening/ADL training respectively. Physical and occupational therapy may work together to address gait and balance issues as deemed necessary. Improve mobility and ADL ability. HE IS CURRENTLY AMBULATING GREATER THAN 150 FT AND WAS ABLE TO GO UP AND DOWN AT LEAST 3 STAIRS YESTERDAY DURING THERAPY WITHOUT MUCH DIFFICULTY REPORTED PER PATIENT. Neurogenic bowel and bladder. Neurogenic bowel and bladder protocols ordered. He will have a suppository every morning at 6:00 a.m. In an attempt to have a morning bowel movement and reduce the chance of incontinence during the day. Given that he is on opioid medications, resume stimulant laxative with senna 1 tablet every morning. Low threshold to increase this if he has very hard stool or inadequate response to caudal suppository. Pain management continue gabapentin 900 mg p.o. Three times daily. Continue hydromorphone 2-4 mg q.4 hours p.r.n. WILL CHANGE TRAMADOL DOSAGE TO 100 MG SCHEDULED 6:00 A.M., 12 NOON, 6:00 P.M. AND MIDNIGHT. PATIENT STATES HE HAS INTOLERANCE TO MORPHINE WITH RASH AND VOMITING. AND ALSO REPORTS SIMILAR INTOLERANCE TO OXYCODONE. HE STARTED WEARING A LIDODERM PATCH WHICH WAS CUT IN HALF AND APPLIED TO EACH SIDE OF HIS SURGICAL INCISION. Hypertension. Appears to be well controlled. Blood pressure 05/19 121/81 Continue amlodipine as well as hydrochlorothiazide. He was noted to have variable blood pressure over the last few days prior to admission to the rehab unit. Nursing to check for orthostatics. Anemia. CBC from 05/17 shows hemoglobin 11.5 and hematocrit 36.1 which is improving from previous H and H on 05/13 which was 10 and 30.7 respectively. Will continue to monitor for signs of anemia such as tachycardia, shortness of breath and orthostasis. WOUND INFECTION-APPRECIATE INFECTIOUS DISEASE CONSULTATION. STARTED ON 2 G IV DAILY CEFTRIAXONE AND DOXYCYCLINE CHANGED TO 100 TWICE A DAY PER ID RECOMMENDATIONS. ORDERS WERE SUBMITTED BY INFECTIOUS DISEASE. THEY WILL CONTINUE FOLLOW HIM. Will contact ID to ascertain length of IV antibiotics as patient may need a PICC line. He had a positive culture for from his surgery for gram-positive rakesh. Likely P Acnes. He is to follow up with the [facility] for Infectious Diseases in the next week. ESR FROM 05/18 53. CRP FROM 60. WILL SEND THESE RESULTS OVER TO INFECTIOUS DISEASE ON 05/19. WILL ASK OUR NURSE TUBE MOLDER FIBERGLASS, APRIL AZEVEDO, IF INFECTIOUS DISEASE WILL COME HERE TO SEE PATIENT IN FOLLOWUP OR IF WE HAVE TO SEND HIM OUT. [id number] will see infectious disease in the next week. Will discuss with our case checker here on the unit to see if infectious Disease will come here or if he needs to be sent out for this appointment. Follow up with his neurosurgeon Dr. Vidales in approximately 2 weeks. Precautions and prophylaxis. He will wear a lumbar corset when he is out of bed. This can be donned and doffed at the edge of the bed and he can take it off to shower. He will work with physical therapy regarding use of the knee brace and whether it is helpful for the left knee. He is at elevated risk for DVT and will be continued on enoxaparin 40 mg daily until he is ambulating at least 150 ft daily. 05/18/18 09:44 05/19/18 09:20 Subjective: Patient reports poor pain control. States he awakened last night with increased low back pain and was given tramadol 50 mg without improvement. Patient acknowledges intolerance to morphine resulting in hives and vomiting. Also reports intolerance to oxycodone. He was previously taking tramadol prior to his surgery. He does not report low back spasms. Objective: Vital Signs Temp Pulse Resp BP Pulse Ox 36.6 C 86 16 121/81 H 93 05/19/18 07:36 05/19/18 07:36 05/19/18 07:36 05/19/18 07:36 05/19/18 07:36 Laboratory Results 05/18/18 06:15 05/17/18 05:50 05/18/18 05/19/18 05/20/18 05:59 05:59 05:59 Intake Total 700 1358 Balance 700 1358 Physical Exam - Physical Exam General Appearance: WD/WN, alert, no apparent distress Respiratory: lungs clear, normal breath sounds Abdomen: non-tender, soft Skin: other (Lumbar surgical incision bandaged and without drainage. No erythema, no induration around surgical incision.) Extremities: No swelling, No Amy's sign Neuro/Psych: oriented x 3, motor weakness (Functional strength of both lower extremities. Mild weakness of hip flexors and abductors) ICD10 Worksheet Patient Problems: Problems Problem Status Onset Stenosis of cervical spine region Acute
[2018-05-19] MEDS: BISACODYL 10 MG SUPP PR SCH (10:04)
[2018-05-19] MEDS: traMADol 50 MG TAB PO SCH ×3 (12:42→23:40)
[2018-05-19] MEDS: PATCH REMOVAL 1 EA PATCH TD SCH (22:59)
[2018-05-20] MEDS: ACETAMINOPHEN 500 MG TAB PO SCH ×3 (05:00→21:02)
[2018-05-20] MEDS: traMADol 50 MG TAB PO SCH ×4 (05:00→23:29)
[2018-05-20] MEDS: LIDOCAINE 4%/MENTHOL 1% PATCH TD SCH (08:35)
[2018-05-20] MEDS: ENOXAPARIN 40 MG/0.4 ML SYR SC SCH (08:36)
[2018-05-20] MEDS: HYDROCHLOROTHIAZIDE 25 MG TAB PO SCH (08:36)
[2018-05-20] MEDS: GABAPENTIN 300 MG CAP PO SCH ×3 (08:36→21:02)
[2018-05-20] MEDS: MULTIVITAMINS 1 EACH TAB PO SCH (08:36)
[2018-05-20] MEDS: amLODIPine BESYLATE 5 MG TAB PO SCH (08:37)
[2018-05-20] MEDS: DOXYCYCLINE HYCLATE 100 MG CAP/TAB PO SCH ×2 (08:37→21:02)
[2018-05-20] MEDS: SENNOSIDES 1 TAB PO SCH (08:40)
[2018-05-20] MEDS: BISACODYL 10 MG SUPP PR SCH (08:40)
[2018-05-20] MEDS: HYDROmorphONE/DILAUDID 2 MG TAB PO PRN ×2 (08:42→19:50)
--- NOTE | 2018-05-20 09:44 | SOAPPROG ---
SOAP Progress Note Assessment/Plan: Assessment: Debility. Status post T11-L5 lumbar fusion, L1-L4 TLIF 05/09/2018. He is also had previous multiple lumbar spine surgeries resulting in intermittent back and hip pain. He does not report increased left or right lower extremity weakness following most recent spine surgery. Physical and occupational therapy for lower extremity strengthening, gait training and upper extremity strengthening/ADL training respectively. Physical and occupational therapy may work together to address gait and balance issues as deemed necessary. Improve mobility and ADL ability. HE IS CURRENTLY AMBULATING GREATER THAN 150 FT AND WAS ABLE TO GO UP AND DOWN AT LEAST 3 STAIRS YESTERDAY DURING THERAPY WITHOUT MUCH DIFFICULTY REPORTED PER PATIENT. Neurogenic bowel and bladder. Neurogenic bowel and bladder protocols ordered. Per nursing request, will change Dulcolax suppository to p.r.n.. Given that he is on opioid medications, resume stimulant laxative with senna 1 tablet every morning. Low threshold to increase this if he has very hard stool or inadequate response to caudal suppository. Pain management- continue gabapentin 900 mg p.o. Three times daily. Continue hydromorphone 2-4 mg q.4 hours p.r.n. WILL CHANGE TRAMADOL DOSAGE TO 100 MG SCHEDULED 6:00 A.M., 12 NOON, 6:00 P.M. AND MIDNIGHT. PATIENT STATES HE HAS INTOLERANCE TO MORPHINE WITH RASH AND VOMITING. AND ALSO REPORTS SIMILAR INTOLERANCE TO OXYCODONE. HE STARTED WEARING A LIDODERM PATCH WHICH WAS CUT IN HALF AND APPLIED TO EACH SIDE OF HIS SURGICAL INCISION. WILL HOLD OFF ON BEGINNING DEMEROL 50 MG IM Q.4 HOURS P.R.N. UNLESS PATIENT COMPLAINS OF INCREASED PAIN LIMITING PROGRESS IN PHYSICAL THERAPY AND/OR SEVERE POST THERAPY PAIN RIGHT LOWER EXTREMITY PAIN-RIGHT L5-S1 FACET JOINT DYSFUNCTION VERSES RIGHT SACROILIAC JOINT DYSFUNCTION. POSSIBLE RIGHT PIRIFORMIS SYNDROME. HE DOES NOT REPORT RIGHT LOWER EXTREMITY RADICULAR SYMPTOMS. HE DESCRIBES PAIN IN THE UPPER LATERAL QUADRANT OF THE RIGHT BUTTOCK THAT RADIATES INTO THE LUMBOSACRAL REGION AND RIGHT INGUINAL REGION. HE STATES THIS HIS MOST SEVERE PAIN. HE DESCRIBED THIS A SHARP STABBING AND CATCHING SENSATION WHICH IS AGGRAVATED WHEN GOING FROM SIT TO STAND THEREBY COMPROMISING HIS ABILITY TO PERFORM TRANSFERS. HE ALSO NOTES INCREASED PAIN IN THIS REGION WHILE AMBULATING. MOST LIKELY MECHANICAL COMPONENT WHICH CAN BE ADDRESSED IN PHYSICAL THERAPY. Hypertension. BLOOD PRESSURE THIS MORNING 140/68 Continue amlodipine as well as hydrochlorothiazide. He was noted to have variable blood pressure over the last few days prior to admission to the rehab unit. Nursing to check for orthostatics. Anemia. CBC from 05/17 shows hemoglobin 11.5 and hematocrit 36.1 which is improving from previous H and H on 05/13 which was 10 and 30.7 respectively. Will continue to monitor for signs of anemia such as tachycardia, shortness of breath and orthostasis. WOUND INFECTION-APPRECIATE INFECTIOUS DISEASE CONSULTATION. STARTED ON 2 G IV DAILY CEFTRIAXONE AND DOXYCYCLINE CHANGED TO 100 TWICE A DAY PER ID RECOMMENDATIONS. ORDERS WERE SUBMITTED BY INFECTIOUS DISEASE. THEY WILL CONTINUE FOLLOW HIM. CALLED DR. GIRISH PABON'S OFFICE BUT RECEIVED ANSWERING MACHINE. WILL CALL BACK LATER TODAY to ascertain length of IV antibiotics as patient may need a PICC line. FINAL WOUND CULTURE RESULT INDICATES P Acnes. He is to follow up with the [facility] for Infectious Diseases in the next week. ESR FROM 05/18 53. CRP FROM 05/18 60. WILL SEND THESE RESULTS OVER TO INFECTIOUS DISEASE ON 05/19. WILL ASK OUR NURSE DOPE HEATER, APRIL AZEVEDO, IF INFECTIOUS DISEASE WILL COME HERE TO SEE PATIENT IN FOLLOWUP OR IF WE HAVE TO SEND HIM OUT. HAVE WRITTEN ORDER FOR LUMBAR SPINE INCISION DRESSING CHANGES DAILY. [id number] will see infectious disease in the next week. Will discuss with our residential case manager here on the unit to see if infectious Disease will come here or if he needs to be sent out for this appointment. Follow up with his neurosurgeon Dr. Vidales in approximately 2 weeks. Precautions and prophylaxis. He will wear a lumbar corset when he is out of bed. This can be donned and doffed at the edge of the bed and he can take it off to shower. He will work with physical therapy regarding use of the knee brace and whether it is helpful for the left knee. He is at elevated risk for DVT and will be continued on enoxaparin 40 mg daily until he is ambulating at least 150 ft daily. 05/18/18 09:44 05/19/18 09:20 05/20/18 09:46 Subjective: PATIENT REPORTS CONTINUED PAIN IN THE UPPER LATERAL QUADRANT OF HIS RIGHT BUTTOCK WHICH RADIATES INTO THE LUMBOSACRAL REGION AND INGUINAL REGION WHICH SHE DESCRIBES IS QUITE SEVERE ESPECIALLY WHEN HE GOES FROM SIT TO STAND WHICH CAUSES A SHARP STABBING DISCOMFORT WHICH SHE STATES PREVENTS HIM FROM PERFORMING [id number] TRANSFERS AND WALKING COMFORTABLY. HE ALSO REPORTS CONTINUED PAIN IN THE ANTERIOR LATERAL ASPECT OF THE LEFT THIGH. HE DOES FEEL THAT HIS PAIN IS IN SOMEWHAT BETTER CONTROL AFTER THE TRAMADOL WAS INCREASED TO 100 MG SCHEDULED. HE DOES NOT REPORT LOWER EXTREMITY WEAKNESS. Objective: Vital Signs Temp Pulse Resp BP Pulse Ox 36.8 C 76 18 140/68 H 96 05/20/18 05:05 05/20/18 05:05 05/20/18 05:05 05/20/18 05:05 05/20/18 05:05 Microbiology 05/18/18 11:00 Urine Culture - Final Urine,Clean Catch Escherichia Coli Laboratory Results 05/18/18 06:15 05/17/18 05:50 05/19/18 05/20/18 05/21/18 05:59 05:59 05:59 Intake Total 1358 1364 260 Output Total 1 Balance 1358 1364 259 Physical Exam - Physical Exam General Appearance: WD/WN, alert, mild distress Respiratory: lungs clear, normal breath sounds Abdomen: normal bowel sounds, non-tender, soft Skin: other (Lumbar incision bandaged, no drainage. No carlita-incisional erythema ) Neuro/Psych: motor weakness (4/5 right and left quadriceps and hamstring strength. 4/5 strength right and left ankle dorsiflexors.) ICD10 Worksheet Patient Problems: Problems Problem Status Onset Stenosis of cervical spine region Acute
[2018-05-20] MEDS ORDERED: BISACODYL 10 MG SUPP PR PRN (09:58)
[2018-05-20] MEDS ORDERED: fentaNYL 12 MCG PATCH TD SCH (15:30)
[2018-05-20] MEDS: fentaNYL 25 MCG PATCH TD SCH (16:21)
[2018-05-20] MEDS: PATCH REMOVAL 1 EA PATCH TD SCH (21:12)
[2018-05-21] MEDS: traMADol 50 MG TAB PO SCH ×3 (05:05→16:58)
[2018-05-21] MEDS: ACETAMINOPHEN 500 MG TAB PO SCH ×3 (05:05→21:02)
[2018-05-21] MEDS: MULTIVITAMINS 1 EACH TAB PO SCH (11:05)
[2018-05-21] MEDS: GABAPENTIN 300 MG CAP PO SCH ×3 (11:05→21:02)
[2018-05-21] MEDS: ENOXAPARIN 40 MG/0.4 ML SYR SC SCH (11:05)
[2018-05-21] MEDS: SENNOSIDES 1 TAB PO SCH (11:06)
[2018-05-21] MEDS: amLODIPine BESYLATE 5 MG TAB PO SCH (11:06)
[2018-05-21] MEDS: HYDROCHLOROTHIAZIDE 25 MG TAB PO SCH (11:06)
[2018-05-21] MEDS: HYDROmorphONE/DILAUDID 2 MG TAB PO PRN (11:07)
--- NOTE | 2018-05-21 11:09 | SOAPPROG ---
SOAP Progress Note Assessment/Plan: Assessment: Debility. Status post T11-L5 lumbar fusion, L1-L4 TLIF 05/09/2018. He is also had previous multiple lumbar spine surgeries resulting in intermittent back and hip pain. He does not report increased left or right lower extremity weakness following most recent spine surgery. Physical and occupational therapy for lower extremity strengthening, gait training and upper extremity strengthening/ADL training respectively. Physical and occupational therapy may work together to address gait and balance issues as deemed necessary. Improve mobility and ADL ability. HE IS CURRENTLY AMBULATING GREATER THAN 150 FT AND WAS ABLE TO GO UP AND DOWN AT LEAST 3 STAIRS YESTERDAY DURING THERAPY WITHOUT MUCH DIFFICULTY REPORTED PER PATIENT. Neurogenic bowel and bladder. Neurogenic bowel and bladder protocols ordered. Per nursing request, will change Dulcolax suppository to p.r.n.. Given that he is on opioid medications, resume stimulant laxative with senna 1 tablet every morning. Low threshold to increase this if he has very hard stool or inadequate response to caudal suppository. Pain management- Duragesic patch 25 mcg 72 hr initiate yesterday and patient reports moderate pain relief with this. Continue gabapentin 900 mg p.o. Three times daily. Continue hydromorphone 2-4 mg q.4 hours p.r.n. For breakthrough pain. Patient counseled today, 05/21 that he has to ask for this. Also has TRAMADOL DOSAGE 100 MG SCHEDULED 6:00 A.M., 12 NOON, 6:00 P.M. AND MIDNIGHT. PATIENT STATES HE HAS INTOLERANCE TO MORPHINE WITH RASH AND VOMITING. AND ALSO REPORTS SIMILAR INTOLERANCE TO OXYCODONE. HE STARTED WEARING A LIDODERM PATCH WHICH WAS CUT IN HALF AND APPLIED TO EACH SIDE OF HIS SURGICAL INCISION. RIGHT LOWER EXTREMITY PAIN-unchanged. Continues to have pain in right upper and lateral glut region with pain radiating into right lumbosacral region and right inguinal region. Seen by Dr. Vidales yesterday who agreed that right hip joint pathology should be considered. According to the patient's daughter, who was present today during rounds, Dr. Vidales has ordered x- ray of the right hip, MRI of the right hip within without contrast, MRI of the lumbar spine with and without contrast and CT of the lumbar spine which will be accomplished on 05/22. Again had lengthy discussion with patient and his family members that his current complaints of right hip girdle, right inguinal and right lumbosacral pain could be related to hip joint pathology verses spine pathology including irritation of the right L5 nerve root, facetogenic pain at the L4-5, L5-S1 level or referred sacroiliac joint pain. Further treatment recommendations will be based on results of imaging studies. Hypertension. BLOOD PRESSURE 05/21 138/84. Continue amlodipine as well as hydrochlorothiazide. He was noted to have variable blood pressure over the last few days prior to admission to the rehab unit. Nursing to check for orthostatics. Anemia. CBC from 05/17 shows hemoglobin 11.5 and hematocrit 36.1 which is improving from previous H and H on 05/13 which was 10 and 30.7 respectively. Will continue to monitor for signs of anemia such as tachycardia, shortness of breath and orthostasis. WOUND INFECTION-APPRECIATE INFECTIOUS DISEASE CONSULTATION. STARTED ON 2 G IV DAILY CEFTRIAXONE AND DOXYCYCLINE CHANGED TO 100 TWICE A DAY PER ID RECOMMENDATIONS. ORDERS WERE SUBMITTED BY INFECTIOUS DISEASE. THEY WILL CONTINUE FOLLOW HIM. Discussed case with yesterday who indicated that PICC line not indicated during IV ceftriaxone course. He will continue to follow him, and apparently will see on 05/22. ESR FROM 05/18 53. CRP FROM 05/18 60. Precautions and prophylaxis. He will wear a lumbar corset when he is out of bed. This can be donned and doffed at the edge of the bed and he can take it off to shower. He will work with physical therapy regarding use of the knee brace and whether it is helpful for the left knee. He is at elevated risk for DVT and will be continued on enoxaparin 40 mg daily until he is ambulating at least 150 ft daily. 05/21/18 11:16 Subjective: Patient reports he still has significant right hip pain. As previously described, it is worse when he goes from sit to stand. He was started on the fentanyl patch 25 mcg yesterday and he reports fair-moderate pain relief with this. He was in to see Dr. Vidales yesterday. Had lengthy discussion with patient, his , son and daughter who indicated that Dr. Marquez was pleased with results of surgery but has ordered some additional imaging studies including right hip x-ray, CT of the lumbar spine, MRI with and without contrast of the hip and spine to further evaluate right groin/right lateral buttock pain. This is based on the daughter's recollection. We did not receive any medical records from Dr. Vidales's office regarding this. Patient's family also discussed their concern over patient's discharge date Saturday verses Saturday. Objective: Vital Signs Temp Pulse Resp BP Pulse Ox 36.8 C 78 16 138/84 H 93 05/21/18 07:02 05/21/18 07:02 05/21/18 07:02 05/21/18 07:02 05/21/18 07:02 Microbiology 05/18/18 11:00 Urine Culture - Final Urine,Clean Catch Escherichia Coli Laboratory Results 05/18/18 06:15 05/17/18 05:50 05/20/18 05/21/18 05/22/18 05:59 05:59 05:59 Intake Total 1364 1400 200 Output Total 201 Balance 1364 1199 200 Physical Exam - Physical Exam General Appearance: WD/WN, alert, no apparent distress Respiratory: lungs clear, normal breath sounds Abdomen: normal bowel sounds, non-tender Neuro/Psych: alert, normal mood/affect, oriented x 3, motor weakness (Mild right hip girdle weakness secondary to pain inhibition. 4/5 strength of right and left quadriceps, hamstrings, ankle dorsiflexors.), No sensory deficit ICD10 Worksheet Patient Problems: Problems Problem Status Onset Stenosis of cervical spine region Acute
[2018-05-21] MEDS: LIDOCAINE 4%/MENTHOL 1% PATCH TD SCH (11:15)
[2018-05-21] MEDS: PATCH REMOVAL 1 EA PATCH TD SCH (20:59)
[2018-05-22] MEDS: traMADol 50 MG TAB PO SCH ×3 (00:12→12:20)
[2018-05-22] MEDS: ACETAMINOPHEN 500 MG TAB PO SCH ×3 (06:16→20:58)
[2018-05-22] MEDS: LIDOCAINE 4%/MENTHOL 1% PATCH TD SCH (07:40)
[2018-05-22] MEDS: HYDROmorphONE/DILAUDID 2 MG TAB PO PRN ×2 (07:40→22:01)
[2018-05-22] MEDS: ENOXAPARIN 40 MG/0.4 ML SYR SC SCH (07:40)
[2018-05-22] MEDS: amLODIPine BESYLATE 5 MG TAB PO SCH (08:33)
[2018-05-22] MEDS: GABAPENTIN 300 MG CAP PO SCH ×3 (08:33→20:58)
[2018-05-22] MEDS: SENNOSIDES 1 TAB PO SCH (08:35)
[2018-05-22] MEDS: HYDROCHLOROTHIAZIDE 25 MG TAB PO SCH (08:35)
[2018-05-22] MEDS: MULTIVITAMINS 1 EACH TAB PO SCH (08:35)
--- NOTE | 2018-05-22 17:20 | SOAPPROG ---
SOAP Progress Note Assessment/Plan: Assessment: Debility. He is status post lumbar fusion on 05/09/2018. He had T11 through L5 fusion with L1 to L4 TLIF. * Initial functional independence measure is 70 on 05/20/2018. Independent bed mobility. Ambulated 300 ft with a front wheeled walker and supervision. Right hip pain is exacerbated with transitional movements. Grooming is done standing with setup. Upper body dressing requires standby assist and lower body dressing requires minimal assist. Toilet transfers require contact guard assist and toileting requires standby assist. * Continue PT and OT to optimize mobility and activities of daily living. Hospital delirium. * Continues to have mild to moderate deficits to attention, communication, executive function, judgment/safety, memory, and problem solving/reasoning. Evaluation and treatment per OPERATING ROOM REGISTERED NURSE. * Labs on 05/17 and 05/18/2018 do not indicate any infectious or metabolic etiology. Spinal infection with hardware in place. He has a positive culture from his surgery for P acnes. * Will be on suppressive doxycycline indefinitely. * On IV ceftriaxone per infectious disease outside sales consultant. Await labs on 05/26/2018 , when it infectious disease outside sales consultant will decide duration of ceftriaxone. Will place PICC line if it is to be an extended duration Neurogenic bowel and neurogenic bladder. Continue neurogenic bowel and bladder protocols. Bisacodyl suppository has been changed to q.a.m. P.r.n.. Continue senna stimulant laxative while he is on opiates. Pain management. * Improved with addition of fentanyl patch. * Unclear contribution of tramadol with concurrent fentanyl patch and hydromorphone. Will discontinue tramadol. * Right hip x-ray, right hip MRI, CT and MRI of lumbar spine ordered per Dr. Anderson; results pending as of 05/22/2018. Hypertension. Overall controlled but occasional high readings. Continue amlodipine as well as hydrochlorothiazide. Anemia with hemoglobin and hematocrit of 10 and 30.7 on 05/13/2018. Improving. Precautions and prophylaxis. He will wear a lumbar corset when he is out of bed. This can be donned and doffed at the edge of the bed and he can take it off to shower. He will work with Physical Therapy regarding use of the knee brace and whether it is helpful for the left knee. Mobility is much improved. Discontinued enoxaparin on 05/22/2018. DISPOSITION: Lives in [place] with his . Plans to discharge home. Tentative discharge date set for 05/27/2018, depending on progress. 05/22/18 17:24 Subjective: Feels much better over several days. Pain is overall improved on fentanyl patch however reports he has left groin pain now greater than right groin pain. Feels he is getting stronger. Sleeping well. Otherwise no complaints. Objective: Vital Signs Temp Pulse Resp BP Pulse Ox 36.8 C 88 16 148/87 H 97 05/22/18 06:48 05/22/18 06:48 05/22/18 06:48 05/22/18 06:48 05/22/18 06:48 Laboratory Results 05/18/18 06:15 05/17/18 05:50 05/21/18 05/22/18 05/23/18 05:59 05:59 05:59 Intake Total 1400 700 860 Output Total 201 Balance 1199 700 860 Physical Exam - Physical Exam General Appearance: WD/WN, alert, no apparent distress Respiratory: normal breath sounds, No crackles, No rhonchi, No wheezing Cardiac/Chest: regular rate, rhythm, No edema, No diastolic murmur, No systolic murmur Skin: normal color, warm/dry Neuro/Psych: alert, normal mood/affect, oriented x 3 ICD10 Worksheet Patient Problems: Problems Problem Status Onset Stenosis of cervical spine region Acute
[2018-05-22] MEDS: PATCH REMOVAL 1 EA PATCH TD SCH (21:01)
[2018-05-23] MEDS: HYDROmorphONE/DILAUDID 2 MG TAB PO PRN ×3 (04:33→20:24)
[2018-05-23] MEDS: ACETAMINOPHEN 500 MG TAB PO SCH ×3 (06:36→20:23)
[2018-05-23] MEDS ORDERED: D5W NS 1,000 ML IV SCH (07:00)
[2018-05-23] MEDS: GABAPENTIN 300 MG CAP PO SCH ×3 (08:11→20:23)
[2018-05-23] MEDS: amLODIPine BESYLATE 5 MG TAB PO SCH (08:12)
[2018-05-23] MEDS: HYDROCHLOROTHIAZIDE 25 MG TAB PO SCH (08:16)
[2018-05-23] MEDS: MULTIVITAMINS 1 EACH TAB PO SCH (08:16)
[2018-05-23] MEDS: SENNOSIDES 1 TAB PO SCH (08:17)
[2018-05-23] MEDS: LIDOCAINE 4%/MENTHOL 1% PATCH TD SCH (08:17)
[2018-05-23] MEDS: ENOXAPARIN 40 MG/0.4 ML SYR SC SCH (08:28)
--- NOTE | 2018-05-23 09:35 | PDOREHIP ---
Admission [facility] - Admission - 3 Day Assessment Period Admission Date/Day 1: 05/16/18 Day 2: 05/17/18 Day 3: 05/18/18 - Active Diagnoses Comorbidities and Co-existing Conditions at Admission: 33206. None of the Above Discharge [facility] - Discharge - 3 Day Assessment Period 2 Days Prior to Anticipated Discharge Date: 05/24/18 1 Day Prior to Anticipated Discharge Date: 05/25/18 Anticipated Discharge Date: 05/26/18 - Discharge Skin Conditions Unhealed Pressure Ulcer (1 or more/Stage 1 or >)-Discharge: 0. No # Stage 1 Pressure Ulcers-Discharge: 0 # Stage 2 Pressure Ulcers-Discharge: 0 # of These Stage 2 Pressure Ulcers Present on Admission: 0 # Stage 3 Pressure Ulcers-Discharge: 0 # of These Stage 3 Pressure Ulcers Present on Admission: 0 # Stage 4 Pressure Ulcers-Discharge: 0 # of These Stage 4 Pressure Ulcers Present on Admission: 0 # Unstageable Pressure Ulcers (Non-remove Dress)-Discharge: 0 # These Unstageable Pressure Ulcers (NRD)-Present on Admit: 0 # Unstageable Pressure Ulcers (Slough/Eschar)-Discharge: 0 # These Unstageable Pressure Ulcers(Slough) Present on Admit: 0 # Unstageable Pressure Ulcers (Deep Tissue Injury)-Discharge: 0 # These Unstageable Pressure Ulcers (DTI) Present on Admit: 0
--- NOTE | 2018-05-23 10:43 | GDS ---
[f rep st] DISCHARGE SUMMARY ADMITTING DIAGNOSIS: Debility status post thoracic to lumbar stabilization surgery. DISCHARGE DIAGNOSIS: Debility status post thoracic to lumbar stabilization surgery. OTHER DISCHARGE DIAGNOSES: 1. Hip pain. 2. Postoperative fluid collection. 3. Cognitive impairment. 4. Spinal infection. 5. Hypertension. 6. Anemia. CONSULTATIONS: He was seen by Infectious Disease, Dr. Baker, and Interventional Radiology, Dr. Rojas. PROCEDURES: He had lumbar spine MRI and CT done per Dr. Anderson. He had drainage of a postoperative fluid collection by Dr. Rojas. HISTORY AND HOSPITAL COURSE: This patient had major lumbar surgery with a T11 through L5 fusion and L1 to L4 TLIF on 05/09/2018. He came through surgery well and came to inpatient rehabilitation on 05/16/2018. During his rehabilitation stay, he had considerable pain. Medications adjusted and he eventually had improvement with a 25 mcg/hour fentanyl patch. He continued to use 4-6 mg a day of hydromorphone, along with the patch. His pain was mostly in transitional movements, but generally, he did well if he remained supine or if he was up seated or standing. Because of the pain, he had further imaging ordered by neurosurgeon, Dr. Anderson. Lumbar spine MRI and CT showed an extensive fluid collection extending anteriorly along the decompressive laminectomy levels. It was 20.8 cm cephalocaudal and 5.3 x 8.9 cm wide. He had drainage by interventional radiology of almost 500 cc of fluid. The drain remains in place on the day of discharge per Functionally, he had considerable improvement during his stay. He was independent in bed mobility. He was able to ambulate 600 feet with a front- wheeled walker and supervision. He was advanced to independent status in his room, with a front wheeled walker.. He had delirium while in the hospital. He was assessed by Speech and Language Pathology and was found to have continued [id number] deficits to attention , communication, executive function, judgment/safety, memory, and problem solving/reasoning. Regarding the spinal infection that was detected on intraoperative swab of tissues, this grew P. acnes. He was on suppressive doxycycline. Infectious Disease also initiated IV ceftriaxone. Labs on 05/26/2018 showed marked improved of ESR and CRP, and normalization of white blood cell count. Ceftriaxone was discontinued and he was begun on oral amoxicillin 500 mg three times daily. Hypertension was overall well controlled, but he had occasional high readings. There were no changes made in his amlodipine and hydrochlorothiazide. Anemia worsened slightly during his stay. He was very slightly iron deficient. He was advised to take a multivitamin with iron. DISCHARGE PLAN: Condition upon discharge is good, DISPOSITION: Home with family. DIET: Regular. ACTIVITY: Ad kandi. MEDICATIONS UPON DISCHARGE: 1. Acetaminophen 1000 mg p.o. q.8 hours. 2. Amoxicillin 100 mg p.o. Three times daily. 3. Fentanyl 25 mcg patch every 72 hours. 4. Gabapentin 900 mg p.o. t.i.d. 5. Amlodipine 5 mg p.o. daily. 6. Hydrochlorothiazide 25 mg p.o. daily. 7. Hydromorphone 2-4 mg q.4 hours p.r.n. 8. Methocarbamol 750 mg p.o. q.i.d. p.r.n. 9. Multivitamin 1 p.o. daily. 10. Senna 8.6 mg 1 p.o. daily. ISSUES TO BE ADDRESSED AT FOLLOWUP: 1. Postoperative fluid collection: Continue drain. Measure daily output. When it is less than 15 - 30 cc on 2 consecutive days, drain can be removed. Patient will follow up with primary care or with Neurosurgery for removal.. 2. Spinal hardware infection will be followed up by the Infectious Disease service, Dr. Baker. 3. Iron deficiency anemia. He was advised to take a multivitamin with iron. He can follow up with his primary care provider. Greater than 30 min were spent on this discharge including medication reconciliation, review of labs regarding iron deficiency, coordination of care, and counseling patient and family. Copy requested to: Chaitanya Marshall NP PCP Dr. Anderson Neurosurgery /[id number]/MODL MTDD
[2018-05-23] MEDS: fentaNYL 25 MCG PATCH TD SCH (15:57)
--- NOTE | 2018-05-23 16:56 | SOAPPROG ---
SOAP Progress Note Assessment/Plan: Assessment: Debility. He is status post lumbar fusion on 05/09/2018. He had T11 through L5 fusion with L1 to L4 TLIF. * Initial functional independence measure is 70 on 05/20/2018. Independent bed mobility. Ambulated 300 ft with a front wheeled walker and supervision. Right hip pain is exacerbated with transitional movements. Grooming is done standing with setup. Upper body dressing requires standby assist and lower body dressing requires minimal assist. Toilet transfers require contact guard assist and toileting requires standby assist. * Continue PT and OT to optimize mobility and activities of daily living. Hospital delirium. * Continues to have mild to moderate deficits to attention, communication, executive function, judgment/safety, memory, and problem solving/reasoning. Evaluation and treatment per SIZER MACHINE. * Labs on 05/17 and 05/18/2018 do not indicate any infectious or metabolic etiology. Spinal infection with hardware in place. He has a positive culture from his surgery for P acnes. * Will be on suppressive doxycycline indefinitely. * On IV ceftriaxone per infectious disease insurance healthcare consultant. Await labs on 05/26/2018 , when it infectious disease insurance healthcare consultant will decide duration of ceftriaxone. Will place PICC line if it is to be an extended duration Paraspinal postoperative fluid collection, status post interventional radiology draining 05/23/2018. Leave drain in place. No flushing of drain. Collection bag to be measured and emptied regularly. Await labs and pathology. Neurogenic bowel and neurogenic bladder. Continue neurogenic bowel and bladder protocols. Bisacodyl suppository has been changed to q.a.m. PRN. Continue senna stimulant laxative while he is on opiates. Pain management. * Improved with addition of fentanyl patch. * Unclear contribution of tramadol with concurrent fentanyl patch and hydromorphone. Will discontinue tramadol. * Right hip x-ray, right hip MRI, CT and MRI of lumbar spine ordered per Dr. Anderson; results pending as of 05/22/2018. Hypertension. Overall controlled but occasional high readings. Continue amlodipine as well as hydrochlorothiazide. Anemia with hemoglobin and hematocrit of 10 and 30.7 on 05/13/2018. Improved to 11.5 and 26.1 on 05/17/2018.. Precautions and prophylaxis. He will wear a lumbar corset when he is out of bed. This can be donned and doffed at the edge of the bed and he can take it off to shower. He will work with Physical Therapy regarding use of the knee brace and whether it is helpful for the left knee. Mobility is much improved. Discontinued enoxaparin on 05/22/2018. DISPOSITION: Lives in [place] with his . Plans to discharge home. Tentative discharge date set for 05/27/2018, depending on progress. 05/23/18 16:52 Subjective: Returned from Interventional Radiology. He is much more comfortable and able to find a comfortable position in bed. He reports that the radiologist withdrew about 2 cups of fluid and that it continues draining. Otherwise without complaints. No fevers or chills, no cough or dyspnea. He notes improvement in right groin pain after drainage of fluid. Objective: Vital Signs Temp Pulse Resp BP Pulse Ox 36.6 C 88 18 142/76 H 98 05/23/18 06:44 05/23/18 06:44 05/23/18 06:44 05/23/18 08:16 05/23/18 06:44 Laboratory Results 05/18/18 06:15 05/17/18 05:50 05/22/18 05/23/18 05/24/18 05:59 05:59 05:59 Intake Total 700 1260 894 Output Total 550 Balance 700 1260 344 - Time Spent With Patient Time Spent With Patient: Greater than 35 min floor time today including coordination of care regarding transfer to Interventional Radiology and reassessment of patient after his return. Physical Exam - Physical Exam General Appearance: WD/WN, alert, no apparent distress Respiratory: No respiratory distress, No accessory muscle use Cardiac/Chest: No edema Skin: normal color, warm/dry Neuro/Psych: alert, normal mood/affect, oriented x 3 ICD10 Worksheet Patient Problems: Problems Problem Status Onset Stenosis of cervical spine region Acute
[2018-05-23] MEDS: PATCH REMOVAL 1 EA PATCH TD SCH (21:44)
[2018-05-24] MEDS: HYDROmorphONE/DILAUDID 2 MG TAB PO PRN ×2 (06:38→20:24)
[2018-05-24] MEDS: ACETAMINOPHEN 500 MG TAB PO SCH ×3 (06:38→20:23)
[2018-05-24] MEDS: amLODIPine BESYLATE 5 MG TAB PO SCH (08:08)
[2018-05-24] MEDS: MULTIVITAMINS 1 EACH TAB PO SCH (08:08)
[2018-05-24] MEDS: GABAPENTIN 300 MG CAP PO SCH ×3 (08:08→20:23)
[2018-05-24] MEDS: SENNOSIDES 1 TAB PO SCH (08:08)
[2018-05-24] MEDS: HYDROCHLOROTHIAZIDE 25 MG TAB PO SCH (08:08)
[2018-05-24] MEDS: LIDOCAINE 4%/MENTHOL 1% PATCH TD SCH (08:17)
--- NOTE | 2018-05-24 10:31 | SOAPPROG ---
SOAP Progress Note Assessment/Plan: Assessment/Plan: Debility. He is status post lumbar fusion on 05/09/2018. He had T11 through L5 fusion with L1 to L4 TLIF. * Initial functional independence measure is 70 on 05/20/2018. Independent bed mobility. Ambulated 300 ft with a front wheeled walker and supervision. Right hip pain is exacerbated with transitional movements. Grooming is done standing with setup. Upper body dressing requires standby assist and lower body dressing requires minimal assist. Toilet transfers require contact guard assist and toileting requires standby assist. * Continue PT and OT to optimize mobility and activities of daily living. Hospital delirium. * Continues to have mild to moderate deficits to attention, communication, executive function, judgment/safety, memory, and problem solving/reasoning. Evaluation and treatment per SHIP CLEANER. * Labs on 05/17 and 05/18/2018 do not indicate any infectious or metabolic etiology. Spinal infection with hardware in place. He has a positive culture from his surgery for P acnes. * Will be on suppressive doxycycline indefinitely. * On IV ceftriaxone per infectious disease oracle distribution consultant. Await labs on 05/26/2018 , when it infectious disease oracle distribution consultant will decide duration of ceftriaxone. Will place PICC line if it is to be an extended duration Paraspinal postoperative fluid collection, status post interventional radiology draining 05/23/2018. Leave drain in place. No flushing of drain. Collection bag to be measured and emptied regularly. Await labs and pathology. Neurogenic bowel and neurogenic bladder. Continue neurogenic bowel and bladder protocols. Bisacodyl suppository has been changed to q.a.m. PRN. Continue senna stimulant laxative while he is on opiates. Pt is reporting daily bowel programs Pain management. * Improved with addition of fentanyl patch. * Unclear contribution of tramadol with concurrent fentanyl patch and hydromorphone. Will discontinue tramadol. * Right hip x-ray, right hip MRI, CT and MRI of lumbar spine ordered per Dr. Anderson; results pending as of 05/22/2018. Hypertension. Overall controlled but occasional high readings. Continue amlodipine as well as hydrochlorothiazide. Anemia with hemoglobin and hematocrit of 10 and 30.7 on 05/13/2018. Improved to 11.5 and 26.1 on 05/17/2018.. Precautions and prophylaxis. He will wear a lumbar corset when he is out of bed. This can be donned and doffed at the edge of the bed and he can take it off to shower. He will work with Physical Therapy regarding use of the knee brace and whether it is helpful for the left knee. Mobility is much improved. Discontinued enoxaparin on 05/22/2018. DISPOSITION: Lives in [place] with his . Plans to discharge home. Tentative discharge date set for 05/27/2018, depending on progress. pt overall doing well - Remains afebrile - Still on Ceftriaxone - No report from fluid sample yesterday. Will continue to monitor. Pain improved - encouraged to decrease his overall pain medication. Will monitor and support. 05/24/18 10:32 Subjective: Feeling so much better with the drain in place and the fluid removed. No fevers/ chills. Discussed his prior history of prostectomy - always has had some urine dribbling - Uses paper towels to soak it up during the day. We talked about other options but feels like this plan has worked well. No other concerns voiced. Anxious to get back home. Discussion of becoming 'independent' in the room today Objective: Vital Signs Temp Pulse Resp BP Pulse Ox 98.3 F 99 18 104/68 97 05/24/18 08:00 05/24/18 08:00 05/24/18 08:00 05/24/18 08:08 05/24/18 08:00 Laboratory Results 05/18/18 06:15 05/17/18 05:50 05/23/18 05/24/18 05/25/18 05:59 05:59 05:59 Intake Total 1260 1294 340 Output Total 620 Balance 1260 674 340 Physical Exam - Physical Exam General Appearance: alert, no apparent distress, other (mobilizing in bed well/ independently. Able to don/doff his brace without problems) EENT: PERRL/EOMI Neck: full range of motion Respiratory: lungs clear, normal breath sounds Cardiac/Chest: regular rate, rhythm Abdomen: non-tender, soft Skin: normal color, warm/dry, other (No carlita-erythema around the dressing, No strikethrough .) Extremities: non-tender Neuro/Psych: alert ICD10 Worksheet Patient Problems: Problems Problem Status Onset Stenosis of cervical spine region Acute
[2018-05-24] MEDS: PATCH REMOVAL 1 EA PATCH TD SCH (20:24)
[2018-05-25] MEDS: HYDROmorphONE/DILAUDID 2 MG TAB PO PRN ×2 (02:58→15:06)
[2018-05-25] MEDS: ACETAMINOPHEN 500 MG TAB PO SCH ×3 (07:35→21:31)
[2018-05-25] MEDS: amLODIPine BESYLATE 5 MG TAB PO SCH (08:15)
[2018-05-25] MEDS: MULTIVITAMINS 1 EACH TAB PO SCH (08:15)
[2018-05-25] MEDS: HYDROCHLOROTHIAZIDE 25 MG TAB PO SCH (08:15)
[2018-05-25] MEDS: GABAPENTIN 300 MG CAP PO SCH ×3 (08:15→21:31)
[2018-05-25] MEDS: SENNOSIDES 1 TAB PO SCH (08:15)
[2018-05-25] MEDS: LIDOCAINE 4%/MENTHOL 1% PATCH TD SCH (08:16)
--- NOTE | 2018-05-25 12:42 | SOAPPROG ---
SOAP Progress Note Assessment/Plan: Assessment/Plan: Debility. He is status post lumbar fusion on 05/09/2018. He had T11 through L5 fusion with L1 to L4 TLIF. * Initial functional independence measure is 70 on 05/20/2018. Independent bed mobility. Ambulated 300 ft with a front wheeled walker and supervision. Right hip pain is exacerbated with transitional movements. Grooming is done standing with setup. Upper body dressing requires standby assist and lower body dressing requires minimal assist. Toilet transfers require contact guard assist and toileting requires standby assist. * Continue PT and OT to optimize mobility and activities of daily living. Hospital delirium. * Continues to have mild to moderate deficits to attention, communication, executive function, judgment/safety, memory, and problem solving/reasoning. Evaluation and treatment per [employer]. * Labs on 05/17 and 05/18/2018 do not indicate any infectious or metabolic etiology. Spinal infection with hardware in place. He has a positive culture from his surgery for P acnes. * Will be on suppressive doxycycline indefinitely. * On IV ceftriaxone per infectious disease loan consultant. Await labs on 05/26/2018 , when it infectious disease loan consultant will decide duration of ceftriaxone. Will place PICC line if it is to be an extended duration Paraspinal postoperative fluid collection, status post interventional radiology draining 05/23/2018. Leave drain in place. No flushing of drain. Collection bag to be measured and emptied regularly. Prelim results as of 05/25 without any growth. Neurogenic bowel and neurogenic bladder. Continue neurogenic bowel and bladder protocols. Bisacodyl suppository has been changed to q.a.m. PRN. Continue senna stimulant laxative while he is on opiates. Pt is reporting daily bowel programs Pain management. * Improved with addition of fentanyl patch. * Unclear contribution of tramadol with concurrent fentanyl patch and hydromorphone. Will discontinue tramadol. * Right hip x-ray, right hip MRI, CT and MRI of lumbar spine ordered per Dr. Anderson; results pending as of 05/22/2018. Hypertension. Overall controlled but occasional high readings. Continue amlodipine as well as hydrochlorothiazide. Anemia with hemoglobin and hematocrit of 10 and 30.7 on 05/13/2018. Improved to 11.5 and 26.1 on 05/17/2018.. Precautions and prophylaxis. He will wear a lumbar corset when he is out of bed. This can be donned and doffed at the edge of the bed and he can take it off to shower. He will work with Physical Therapy regarding use of the knee brace and whether it is helpful for the left knee. Mobility is much improved. Discontinued enoxaparin on 05/22/2018. DISPOSITION: Lives in [place] with his . Plans to discharge home. Tentative discharge date set for 05/27/2018, depending on progress. 05/25/18 12:38 Subjective: Feeling pretty good. Had such a great day yesterday but thinks he overdid it. He moved more than he had in a while and is definitely having some more pain last night/today - At time of interview was reporting about 50% reduction as compared to last night - has been taking it easier today. The pain is in the similar area as before the drain was placed - the left posterior buttock region. Reviewed that cultures are neg to date. no growth from the fluid. Pt eating well. Utilizing the bathroom well - better night now that able to get up on his own to the bathroom. Anxious to get back home. Objective: Vital Signs Temp Pulse Resp BP Pulse Ox 98.1 F 81 16 133/69 H 97 05/25/18 07:36 05/25/18 07:36 05/25/18 07:36 05/25/18 08:15 05/25/18 07:36 Laboratory Results 05/18/18 06:15 05/17/18 05:50 05/24/18 05/25/18 05/26/18 05:59 05:59 05:59 Intake Total 1294 580 240 Output Total 620 125 Balance 674 455 240 Physical Exam - Physical Exam General Appearance: alert, no apparent distress EENT: PERRL/EOMI Respiratory: lungs clear, normal breath sounds Cardiac/Chest: regular rate, rhythm Abdomen: non-tender, soft Back: Other (No strike through on the dressing. Drain in place - has serosanguinous discharge in the bag. Some pain with palpation over posterior buttock - no radiation per patient. no evidence of fluctuance/fluid buildup per palpation along the spine/incision area. ) Extremities: non-tender Neuro/Psych: alert, normal mood/affect ICD10 Worksheet Patient Problems: Problems Problem Status Onset Stenosis of cervical spine region Acute
[2018-05-25] MEDS: PATCH REMOVAL 1 EA PATCH TD SCH (21:28)
[2018-05-26] MEDS: HYDROmorphONE/DILAUDID 2 MG TAB PO PRN ×2 (02:35→06:28)
[2018-05-26] MEDS: ACETAMINOPHEN 500 MG TAB PO SCH ×2 (04:43→13:20)
[2018-05-26] MEDS: METHOCARBAMOL 750 MG TAB PO PRN (04:43)
[2018-05-26 06:21] VITALS: BP 135/81
[2018-05-26] MEDS: LIDOCAINE 4%/MENTHOL 1% PATCH TD SCH (07:58)
[2018-05-26] MEDS: HYDROCHLOROTHIAZIDE 25 MG TAB PO SCH (08:11)
[2018-05-26] MEDS: GABAPENTIN 300 MG CAP PO SCH ×2 (08:11→15:28)
[2018-05-26] MEDS: amLODIPine BESYLATE 5 MG TAB PO SCH (08:11)
[2018-05-26] MEDS: MULTIVITAMINS 1 EACH TAB PO SCH (08:12)
[2018-05-26] MEDS: SENNOSIDES 1 TAB PO SCH (08:12)
[2018-05-26 09:07] LABS: PLATELET COUNT 979 10^3/uL (150-400)
--- NOTE | 2018-05-26 10:37 | SOAPPROG ---
SOAP Progress Note Assessment/Plan: Assessment: Debility. He is status post lumbar fusion on 05/09/2018. He had T11 through L5 fusion with L1 to L4 TLIF. * Initial functional independence measure is 70 on 05/20/2018. Independent bed mobility. Ambulated 300 ft with a front wheeled walker and supervision. Right hip pain is exacerbated with transitional movements. Grooming is done standing with setup. Upper body dressing requires standby assist and lower body dressing requires minimal assist. Toilet transfers require contact guard assist and toileting requires standby assist. * Advanced to independent. Walked 600' FWW cues for upright posture. Went up/ down 6 stairs with B rail SBA. Distant supervision to modified independent for ADLs. * Continue PT and OT to optimize mobility and activities of daily living. Hospital delirium. * Continues to have mild to moderate deficits to attention, communication, executive function, judgment/safety, memory, and problem solving/reasoning. Improving. * Continue [employer]. Spinal infection with hardware in place. He has a positive culture from his surgery for P acnes. * Will be on suppressive doxycycline indefinitely. * On IV ceftriaxone per infectious disease reservoir engineering consultant. * Labs on 05/26/2018 with normal white blood cell count and ESR, minor elevation of CRP. Await advice of Infectious Disease regarding long-term ceftriaxone, for which he would need a PICC placed. Pain management. * Improved with addition of fentanyl patch. * Unclear contribution of tramadol with concurrent fentanyl patch and hydromorphone. Discontinued tramadol 05/22/2018. * Lumbar MRI 05/22/2018 showed large paraspinal fluid collection, which has been drained. He has less pain after drainage.. * Using 4-8 mg of hydromorphone each day for the past 3 days, concurrent with 25 microgram/hour fentanyl patch. Also occasional methocarbamol, and gabapentin 900 mg three times daily. Paraspinal postoperative fluid collection, status post interventional radiology draining 05/23/2018. Leave drain in place. No flushing of drain. Collection bag to be measured and emptied regularly. Await labs and pathology. * Draining 100 to 125 cc per day over past 2 days. Not yet ready to consider drain removal. Anemia with hemoglobin and hematocrit of 10 and 30.7 on 05/13/2018. Improved to 11.5 and 26.1 on 05/17/2018.. * Slight decrease on labs 05/26/2018. Also with thrombocytosis. Will check iron panel, ferritin, and manual differential regarding thrombocytosis. Neurogenic bowel and neurogenic bladder. Continue neurogenic bowel and bladder protocols. Bisacodyl suppository has been changed to q.a.m. PRN. Continue senna stimulant laxative while he is on opiates. Hypertension. Adequate control. Continue amlodipine as well as hydrochlorothiazide. Precautions and prophylaxis. He will wear a lumbar corset when he is out of bed. This can be donned and doffed at the edge of the bed and he can take it off to shower. He will work with Physical Therapy regarding use of the knee brace and whether it is helpful for the left knee. Mobility is much improved. Discontinued enoxaparin on 05/22/2018. DISPOSITION: Lives in [place] with his . Plans to discharge home. Tentative discharge date set for 05/27/2018, depending on progress. 05/26/18 11:02 Subjective: Has advanced to independent in his room and wants to go home today. Still has some right hip pain which is affected his sleep last night. The night before he took a higher dose of hydromorphone and slept very well. Otherwise without complaint. Objective: Vital Signs Temp Pulse Resp BP Pulse Ox 36.7 C 87 18 135/81 H 94 05/26/18 06:19 05/26/18 06:19 05/26/18 06:19 05/26/18 06:19 05/26/18 06:19 Laboratory Results 05/26/18 06:10 05/26/18 06:10 05/25/18 05/26/18 05/27/18 05:59 05:59 05:59 Intake Total 580 1500 250 Output Total 125 100 70 Balance 455 1400 180 ICD10 Worksheet Patient Problems: Problems Problem Status Onset Stenosis of cervical spine region Acute
--- NOTE | 2018-05-26 11:35 | PCMIDPN ---
Assessment/Plan: Assessment: The 7-year-old man with probable deep surgical space infection complicating multiple spinal surgeries. His CRP has rapidly decreased while on ceftriaxone, can change to oral amoxicillin to complete therapy. 1. Probable deep surgical space infection with Cutibacterium (Propionibacterium ) acnes; improved 2. Status post extensive spinal surgery 05/09/2018 3. Status post posterior spinal fluid collection drainage 05/23/2018; gram stain and cultures negative to date Plan: 1. Stop ceftriaxone 2. Start amoxicillin 500 mg p.o. Q.8 hours times 14 days, further prescriptions and duration will be determined at ID follow-up 3. ID follow-up being arranged for June 04 or Wilson Baker MD Infectious Diseases 05/26/18 11:35 Subjective: Chart reviewed, patient not seen today. Objective: Vital Signs Temp Pulse Resp BP Pulse Ox 36.7 C 87 18 135/81 H 94 05/26/18 06:19 05/26/18 06:19 05/26/18 06:19 05/26/18 06:19 05/26/18 06:19 Laboratory Results 05/26/18 06:10 05/26/18 06:10 05/25/18 05/26/18 05/27/18 05:59 05:59 05:59 Intake Total 580 1500 250 Output Total 125 100 70 Balance 455 1400 180 ESR 19 MM/HR (0-20) 05/26/18 06:10 C-Reactive Protein 14.8 mg/L (<10.0) H 05/26/18 06:10 ICD10 Worksheet Patient Problems: Problems Problem Status Onset Stenosis of cervical spine region Acute
--- NOTE | 2018-05-26 11:38 | PDIAF ---
- Diagnosis Diagnosis: Cutibacterium (Propionibacterium) acnes deep soft tissue infection of back Code Status: Full Code - Medication Management Care Home Antibiotics: amoxicillin 500mg PO q8 hours Care Home Antibiotic Stop Date: 06/09/18 (Further duration to be determined at ID follow-up) Discharge Medications: electronically signed and located in the Home Medication List. - Follow Up Care Current Providers and Referrals: Rolando Tavares NP [Other] Wilson Baker MD [Medical Doctor] - (Follow-up being arranged for June 04 or )
[2018-05-26] MEDS: fentaNYL 25 MCG PATCH TD SCH (15:22)
--- NOTE | 2018-05-26 16:20 | PDIAF ---
- Diagnosis Diagnosis: Cutibacterium (Propionibacterium) acnes deep soft tissue infection of back Code Status: Full Code - Medication Management Longterm Antibiotics: amoxicillin 500mg PO q8 hours Longterm Antibiotic Stop Date: 06/09/18 (Further duration to be determined at ID follow-up) Discharge Medications: electronically signed and located in the Home Medication List. - Orders Additional Instructions: Provider Orders: Status post lumbar surgery. Therapies start date 05/27/18 for Registered Nurse, Physical Therapy, Occupational Therapy. Diet: regular. Wound skin: See orders regarding lumbar drain. Weight-bearing as tolerated. No activity restrictions. Nursing: Follow Dr Vidales's orders for the lumbar drain. Keep a record of the drainage for the next visit to the doctor. Follow Dr Baker' order for the antibiotic. Use a spiral notebook to keep track of your bowel movements so that you know if you are becoming constipated. You can also keep track of pain levels and when tylenol or other pain meds are given. Do not use more than 3000mg of tylenol in 24 hours. Therapy: *Follow spinal precautions! NO bending, twisting. *Be sure to have your brace on you before you stand up. * Recommend you continue to use the walker for ambulation inside and outside home environment. Do not get in a hurry to go someplace, and be focused when you are up and moving about. *Continue with a walking regime as recommended by Dr. Marquez's office. Pace yourself and don't overdo things. *Recommend you keep a daily journal or you activity, so that if the following day - you are more sore or too fatigued, you can look back and see what you did the previous day. DO NOT OVER EXTEND YOURSELF and become too fatigued. *Recommend that you initially have someone with you when you enter/exit the house on the steps. *Recommend that you do not drive until you are cleared by the physician. *Continue to use the bone stimulator 2 hours per day per protocol recommended by Dr. Marquez's office. - Follow Up Care Current Providers and Referrals: Rolando Tavares NP [Other] - 05/28/18 9:00 am (Check in at 8:50 am for 9:00 am, bring ins card and Co-pay.) Wilson Baker MD [Medical Doctor] - 06/04/18 1:00 pm ()
== END 2018-05-26 16:53 | disposition home health service (06) | DRG 949 ==
LOC: BREH 13:45
PROVIDERS: ADMIT Internal Medicine Hospice and Palliative Medicine; ATTEND Internal Medicine Hospice and Palliative Medicine
DX: Z48.89 Encounter for other specified surgical aftercare (principal); M41.86 Other forms of scoliosis, lumbar region; M48.062 Spinal stenosis, lumbar region with neurogenic claudication; T81.42XA Infection following a procedure, deep incisional surgical site, initial encounter; K59.2 Neurogenic bowel, not elsewhere classified; N31.9 Neuromuscular dysfunction of bladder, unspecified; G89.18 Other acute postprocedural pain; D64.9 Anemia, unspecified; R41.0 Disorientation, unspecified; Z98.1 Arthrodesis status; I10 Essential (primary) hypertension; Z85.46 Personal history of malignant neoplasm of prostate; Z96.652 Presence of left artificial knee joint
CPT/HCPCS: 92507-GN; 92523-GN; 97110-GO; 97110-GP; 97116-GP; 97162-GP; 97166-GO; 97530-GO; 97530-GP; 97535-GO; J0696; J1650

== ENCOUNTER → 2018-05-22 | Outpatient (CLI) | payer OTHER ==
[~2018-05-22] MED LIST: GADOBUTROL 10 ML VIAL IVP ONE
== END ==
LOC: FIMAGING 13:56
PROVIDERS: ATTEND Neurological Surgery
DX: M54.16 Radiculopathy, lumbar region (principal); Z98.1 Arthrodesis status
CPT/HCPCS: 72131; 72158; A9585

== ENCOUNTER 2018-05-23 12:48 | Day surgery (SDC) | payer OTHER | END 2018-05-23 14:40 | LOC: EDSTATUS 12:48 → FIMAGING 12:48 | PROVIDERS: ATTEND Neurological Surgery | DX: G06.1 Intraspinal abscess and granuloma (principal); Z98.1 Arthrodesis status ==